=== PATIENT | male | born 1995 | race Caucasian/White ===

== ENCOUNTER 2019-09-16 07:31 | Outpatient (CLI) | payer OTHER, SELFPAY ==
--- NOTE | 2019-09-22 20:27 | SLEEP_ITS ---
Home Sleep Test. DATE OF STUDY: 09/16/2019 REASON FOR THE STUDY: Sleep apnea, unspecified. HISTORY: The patient is a 24-year-old male, who snores at night, chokes in his sleep and stops breathing every once in a while. He constantly snores loud enough that others complain about it, constantly awakens at night with heartburn, belching, or coughing. He frequently awakens from sleep feeling short of breath. His father and 2 aunts on his father's side have sleep apnea. 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 He has difficulty waking up in the day. He constantly has trouble sleeping with a cold, occasionally gasps for breath at night, frequently is told by others that he has breathing problems while sleeping. He occasionally sweats excessively at night. He does not notice his heart pounding or beating irregularly at night. He frequently falls asleep during the day, but never involuntarily or while driving. He does not fall asleep with physical effort. He does not fall asleep with strong emotion. He does not lose muscle strength with strong emotion. He occasionally has daytime difficulties due to excessive sleepiness. He does not feel paralyzed on waking or falling asleep. He does not have vivid dreamlike scenes upon awakening or falling asleep. He does not feel afraid of going asleep. He frequently has nightmares, constantly remembers his dreams, constantly has racing thoughts. He does not have sadness, depression or anxiety. He constantly has muscular tension. He frequently notices parts of his body jerking, occasionally kicks at night, constantly has crawly achy feelings in his legs. He frequently has leg pain at night. He denies morning jaw pain and does not grind his teeth during sleep. He constantly is bothered by pain during the day, but never is awakened by pain at night. He constantly wakes up feeling stiff in the morning with sore achy muscles and pain in his neck and spine joints. He has fatigue, memory problems, nightmares, concentration difficulties, and frequently takes antacids. Bedtime is 01:00 a.m. taking 5 to 10 minutes to fall asleep, typically waking 3-4 times at night, staying awake for 2-3 minutes, so he can go to the bathroom. He wakes in the morning at 08:30 a.m. He lives at home with his and 3 small children. He does not take naps. A short nap is not refreshing. He is drowsy in the morning for 2 hours or longer. MEDICAL COMORBIDITIES: Hypertension, acid reflux, seasonal allergies, sensitive to pollen and mold. MEDICATIONS: Lisinopril 10 mg a day. HABITS: Cigarettes: Previously smoked tobacco. Caffeine, 1 serving per day. No alcohol. No recreational drugs. DESCRIPTION OF THE STUDY: On the Gardner Sleepiness Scale, score is 12, elevated. This was conducted as an unattended type 3 portable home sleep test using 4 channel monitoring including respiratory effort channel, snoring channel, oxygen saturation channel, and heart rate channel. This study was scored using [facility] guidelines. Duration of the study was 5 hours 47 minutes. The apnea-hypopnea index is elevated at 24. Oxygen desaturation index is elevated at 20. Lowest desaturation is 76%. The mean saturation is 93%. The patient had 66 apneas and the majority of these 82% or 54 apneas were obstructive, 12% or 8 apneas were central and 4 apneas or 6% were mixed. He had 73 hypopneas, 960 snoring events and 145 desaturations spending 10 minutes or 2% of the study below 88% saturation. Heart rate ranged from 52, which is normal up to 116, which is elevated. IMPRESSION: This home sleep test shows evidence of at least moderate obstructive sleep apnea syndrome G47.33 with a small number of central and mixed apneas, 18% of
== END 2019-09-16 07:32 | disposition home or self-care (01) ==
LOC: ANHCSM 07:36
PROVIDERS: PCP Family Medicine Adolescent Medicine; Visit Provider Family Medicine
DX: G47.30 Sleep apnea, unspecified (principal)
CPT/HCPCS: 95806

== ENCOUNTER 2019-12-30 13:43 | Emergency (ER) | payer OTHER, SELFPAY ==
--- NOTE | 2019-12-30 13:54 | ED.GENADULT ---
HPI - General Adult General Chief complaint: Upper Respiratory Infection Stated complaint: upper respiratory infection Time Seen by Provider: 12/30/19 13:56 Source: patient Mode of arrival: ambulatory Limitations: no limitations History of Present Illness HPI narrative: 24-year-old male patient presents to the [facility] with complaints of upper respiratory infection x2 days. Patient states that he was sent home from work due to the fact that he was running a fever as high as 100.9. Patient states he has had a little bit of a cough, body aches, chills, low-grade fever, runny nose. Denies any chest pain or shortness of breath. Denies any abdominal pain, nausea, vomiting or diarrhea. Patient states he is a smoker. Patient states that his body aches, chills and fever do improve when taking Tylenol. 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 Related Data Home Medications Medication Instructions Recorded Confirmed No Home Medications 12/30/19 12/30/19 Allergies Allergy/AdvReac Type Severity Reaction Status Date / Time clavulanic acid Allergy Intermediate Vomiting Verified 03/05/19 17:22 azithromycin Allergy Unknown Verified 03/05/19 17:22 Review of Systems Review of Systems: Narrative: CONSTITUTIONAL: Positive low-grade fever, chills, denies sweats. EYES: Denies visual changes, redness, or discharge. ENT: Positive rhinorrhea, congestion, sore throat, denies otalgia. CARDIOVASCULAR: Denies chest pain, palpitations, or edema. RESPIRATORY: Positive cough, denies dyspnea. GASTROINTESTINAL: Denies abdominal pain, nausea, vomiting, or diarrhea. GENITOURINARY: Denies dysuria or hematuria. SKIN: Denies rash or itching. MUSCULOSKELETAL: Denies back pain, joint pain, or myalgia. NEUROLOGIC: Denies headache, numbness, or weakness. PSYCHIATRIC: Denies anxiety or depression. PMFSH Comments At the time of my signature I agree with nursing past medical history, surgical, social, and family history. There is no relevant family history pertinent to the presenting complaint. Exam Narrative: Exam Narrative: GENERAL: Well-appearing, well-nourished, and in no acute distress. HEAD: Normocephalic, atraumatic. No tenderness noted to frontal maxillary sinuses on palpation EYES: PERRLA and EOMI. ENT: Nares with erythema and edema noted bilaterally, no rhinorrhea or epistaxis. Mucous membranes moist. Posterior pharynx with some erythema but there is no tonsil enlargement, exudates or lesions present. Bilateral TMs are clear no erythema or foreign bodies in the canal. NECK: Supple. No lymphadenopathy CHEST: Clear to auscultation. No respiratory distress. Patient does have a nonproductive dry cough noted during exam. HEART: Regular rate and rhythm. No murmur heard. Normal peripheral pulses. ABDOMEN: Soft, nontender, nondistended, normal active bowel sounds. EXTREMITIES: Normal range of motion. No edema. SKIN: Warm, dry, no rash. NEURO: No focal deficits. Alert and oriented x3. Course Vital Signs Vital signs: Vital Signs Temperature 37.3 C 12/30/19 13:58 Pulse Rate 71 12/30/19 13:58 Respiratory Rate 16 12/30/19 13:58 Blood Pressure 150/81 H 12/30/19 13:58 Pulse Oximetry 100 12/30/19 13:58 Temperature 37.3 C 12/30/19 13:58 Pulse Rate 71 12/30/19 13:58 Respiratory Rate 16 12/30/19 13:58 Blood Pressure 150/81 H 12/30/19 13:58 Pulse Oximetry 100 12/30/19 13:58 Vital signs reviewed. The patient has been informed that they may have pre-hypertension or Hypertension based on a BP reading in the department. I recommend that the patient call the primary care provider listed on their discharge instructions or a physician of their choice this week to arrange follow up for further evaluation of possible pre-hypertension or Hypertension Medical Decision Making Differential Diagnosis Differential Diagnosis: Differential d
[2019-12-30 13:58] VITALS: BP 150/81; PULSE 71; RESP 16; TEMP 37.3; O2SAT 100
--- NOTE | 2020-01-02 09:56 | PC.NURSE ---
called and requested covid result. 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
== END 2019-12-30 14:23 | disposition home or self-care (01) ==
PROVIDERS: Emergency Provider Nurse Practitioner Family
DX: J06.9 Acute upper respiratory infection, unspecified (principal); Z20.828 Contact with and (suspected) exposure to other viral communicable diseases; R03.0 Elevated blood-pressure reading, without diagnosis of hypertension
CPT/HCPCS: 87081; 87635; 87880; 99213; C9803; G0463; U0003

== ENCOUNTER → 2019-12-30 14:57 | Outpatient (NON) | payer OTHER, SELFPAY ==
[2020-01-01 12:47] LABS: SARS-CoV-2 RNA PCR Negative
== END ==
PROVIDERS: Visit Provider Nurse Practitioner Family
DX: J06.9 Acute upper respiratory infection, unspecified (principal); Z20.828 Contact with and (suspected) exposure to other viral communicable diseases
CPT/HCPCS: 87635; C9803; U0003

== ENCOUNTER 2020-02-29 08:39 | Emergency (ER) | payer BC, MEDICAID, SELFPAY ==
--- NOTE | ~2020-02-29 | XR_ITS ---
EXAMINATION: XR chest 2V DATE: 02/29/2020 09:14 INDICATION: Cough and shortness of breath TECHNIQUE: PA and lateral views of the chest are obtained. COMPARISON: 05/03/2019 FINDINGS: The lungs are free of acute opacities. There is no pleural effusion or pneumothorax. The ca rdiomediastinal silhouette is normal. The visualized bones and soft tissues are unremarkable. IMPRESSION: 1. No acute cardiopulmonary abnormality. Reviewed, dictated and finalized at location [facility].
[2020-02-29 08:55] VITALS: BP 129/97; PULSE 95; RESP 20; TEMP 36.7; O2SAT 99
--- NOTE | 2020-02-29 09:08 | ED.URI ---
HPI - URI/Sore Throat General Chief Complaint: Upper Respiratory Infection Stated Complaint: Cough,Sore Throat Time Seen by Provider: 02/29/20 08:59 Source: patient and RN notes reviewed Mode of arrival: ambulatory Limitations: no limitations History of Present Illness HPI Narrative: Patient presents today with a 3-day history of productive cough, body aches, sneezing and nasal congestion, shortness of breath, chills and sweats. Reports a sore throat that started today. Reports a 6-day history of diarrhea. He has been taking ibuprofen and an old prescription of benzonatate for his symptoms. Patient works on a [employer] and cannot come back to work until he has been evaluated. Denies history of asthma or COPD. No known COVID-19 exposure. MD elicited complaint: cough and nasal congestion Related Data Allergies Allergy/AdvReac Type Severity Reaction Status Date / Time clavulanic acid Allergy Intermediate Vomiting Verified 02/29/20 09:01 azithromycin Allergy Unknown Unknown Verified 02/29/20 09:01 Review of Systems Review of Systems: Narrative: CONSTITUTIONAL: Denies fever. + Body aches, chills, sweats EYES: Denies visual changes, redness, or discharge. ENT: Denies otalgia.+ Rhinorrhea, congestion, sore throat, sneezing CARDIOVASCULAR: Denies chest pain, palpitations, or edema. RESPIRATORY:+ Cough, shortness of breath GASTROINTESTINAL: Denies abdominal pain, nausea, vomiting. + Diarrhea GENITOURINARY: Denies dysuria or hematuria. SKIN: Denies rash, itching, or wounds. MUSCULOSKELETAL: Denies back pain, joint pain, or myalgia. NEUROLOGIC: Denies headache, numbness, tingling, or weakness. PSYCH: Denies depression or anxiety. PMFSH Comments At time of signature, I have reviewed and agree with nursing past medical, surgical, social and family history unless otherwise noted. Please see nursing chart for further information. There is no relevant family history pertinent to the presenting complaint Exam Narrative: Exam Narrative: GENERAL: Mildly ill appearing, well-nourished, and in no acute distress. HEAD: Normocephalic, atraumatic. EYES: EOMI. No redness or drainage. Conjunctivae normal. ENT: Mucous membranes pink and moist. Nares congested with rhinorrhea. TMs normal bilaterally. Throat mildly erythematous without edema or exudate. Uvula midline. NECK: Normal AROM. Supple. No lymphadenopathy. CHEST: No respiratory distress. Slight inspiratory and expiratory wheezes throughout, otherwise clear HEART: Regular rate and rhythm. No murmur appreciated. Normal peripheral pulses. MUSCULOSKELETAL: No bony tenderness. EXTREMITIES: Normal range of motion. No edema. SKIN: Warm, dry, no rash. Capillary refill normal. Normal skin turgor. NEURO: No focal deficits. Alert and oriented x3. Gait steady. PSYCH: Normal affect. No signs of depression or anxiety. Course Course Emergency Course: Order for COVID testing has been faxed over to [facility]. Anticipatory guidance given. We will treat patient with steroids and an albuterol inhaler. Due to recent exposure and symptoms, patient may have a possible COVID-19 infection. Signs and symptoms discussed with patient. Patient educated to self-isolate in a room in his/her home away from others they live with. Use mask if available. Patient was advised not to leave house for any reason ? Self-treatment discussed including Tylenol for fever, pain, or myalgia, and cough cold medications for symptoms. Patient to check temperature daily and monitor for symptoms of respiratory distress. Patient should check in daily with primary care office/system via phone/virtual platform ? Nature of the disease to cause severe respiratory distress discussed with the patient. If emergent care is needed, instructed to notify EMS or primary care office/system that he/she may have COVID-19 to allow for proper preparation of PPE and isolation measures Vital Signs Vital signs: Vital Signs
== END 2020-02-29 09:34 | disposition home or self-care (01) ==
PROVIDERS: Emergency Provider Nurse Practitioner
DX: J06.9 Acute upper respiratory infection, unspecified (principal); J02.9 Acute pharyngitis, unspecified; Z20.828 Contact with and (suspected) exposure to other viral communicable diseases
CPT/HCPCS: 71046; 99213; G0463

== ENCOUNTER 2020-05-02 21:00 | Emergency (ER) | payer BC, SELFPAY ==
--- NOTE | ~2020-05-02 | CT_ITS ---
EXAMINATION: CT abdomen pelvis w con DATE: 05/02/2020 21:59 INDICATION: Left-sided abdominal pain TECHNIQUE: Computed tomography (CT) of the abdomen and pelvis was performed with 100 cc Omnipaque 350 intravenous contrast. Automated exposure control and iterative reconstruction technique were employe d. Exam dose: 758.36 mGy-cm total exam DLP. COMPARISON: 03/16/2018 CT abdomen pelvis FINDINGS: The lung bases are clear of infiltrate or consolidation. Normal heart size. No pericardial or pleural effusion. Small sliding hiatal hernia. The gallbladder is contracted. No bile duct dilatation. No hepatic, splenic, pancreatic, and adrenal or renal space-occupying mass lesion. No pancreatic duct dilatation. Normal caliber of the abdominal aorta. No intraperitoneal or retroperitoneal or pelvic mass lesion or adenopathy or ascites. Bilateral fat-containing inguinal hernias. The urinary bladder is relatively evacuated. The prostate gland and seminal vesicles are unremarkable . Normal appendix. No bowel obstruction, bowel wall thickening, pneumatosis or intraperitoneal free air . Included skeletal structures are unremarkable. IMPRESSION: Small sliding hiatal hernia Bilateral fat-containing inguinal hernias Reviewed, dictated and finalized at [facility]. Reviewed, dictated and finalized at location A.
[2020-05-02 21:07] VITALS: BP 172/89; PULSE 93; RESP 20; TEMP 37.1; O2SAT 100
--- NOTE | 2020-05-02 21:17 | ED.ABDPAIN ---
HPI - Abdominal Pain General Chief Complaint: Abdominal Pain Stated Complaint: Abd pain Time Seen by Provider: 05/02/20 21:13 Source: RN notes reviewed History of Present Illness HPI narrative: Patient presents to emergency department from home for right side abdominal pain. Patient states pain initially began approximately 1 month ago when he had fallen onto his right side at work onto some metal. He states that since then he has had pain in the right side of his abdomen and at times would feel like a knot is there. States the pain has gotten worse was eating is gotten worse over the past 2 days. States associated nausea and vomiting yesterday. Denies any fevers or chills diarrhea or any other symptoms states he is having regular bowel movements Related Data Home Medications Medication Instructions Recorded Confirmed hydrocodone-acetaminophen 1 tablet PO PRN 05/02/20 Allergies Allergy/AdvReac Type Severity Reaction Status Date / Time clavulanic acid Allergy Intermediate Vomiting Verified 05/02/20 21:11 azithromycin Allergy Unknown Unknown Verified 05/02/20 21:11 Review of Systems Review of Systems: Narrative: Gen.: Denies fevers or chills ENT: Denies congestion Respiratory: Denies shortness of breath or cough CV: Denies chest pain or palpitations GI: See HPI denies burning, urgency, frequency or hematuria Musculoskeletal: Denies back pain or muscle pain Neuro: Denies numbness, tingling, weakness or focal weakness Skin: Denies rash Except as documented, all other systems reviewed and negative [facility] Past Medical History Medical History (Updated 05/02/20 @ 22:25 by Corey Damon DO) Patient denies significant medical history Social History Social History (Updated 05/02/20 @ 21:18 by Corey Damon DO) Smoking status: Current every day smoker Exam Narrative: Exam Narrative: APPEARANCE: No acute distress, nontoxic, resting in bed HEENT: Normocephalic, atraumatic, OMM RESPIRATORY: No respiratory distress, clear to auscultation bilaterally with no rhonchi wheezing or rales CARDIOVASCULAR: RRR s murmur ABDOMINAL: Soft, nondistended, tender palpation right upper quadrant right lower quadrant, no tenderness left upper quadrant left lower quadrant no rebound or guarding MUSCULOSKELETAl: Moves all extremities. No clubbing, cyanosis or edema. NEURO: Awake and alert. Following commands, speech normal, no focal deficits SKIN:: Warm, dry. Normal Color PSYCHIATRIC: Normal affect/mood Course Course Emergency Course: Patient states that they are feeling much better at this time. States abdominal pain has improved repeat abdominal exam shows the patient's abdomen to be soft with no surgical abdomen present discussed with patient results of workup and diagnosis. Discussed need for follow-up with primary care physician, reasons to return to the emergency department in proper use of medication. Patient understands and agrees to current treatment plan Vital Signs Vital signs: Vital Signs Temperature 98.7 F 05/02/20 21:07 Pulse Rate 93 05/02/20 21:07 Respiratory Rate 20 05/02/20 21:07 Blood Pressure 172/89 H 05/02/20 21:07 Pulse Oximetry 100 05/02/20 21:07 Temperature 98.7 F 05/02/20 21:07 Pulse Rate 93 05/02/20 21:07 Respiratory Rate 20 05/02/20 21:07 Blood Pressure 172/89 H 05/02/20 21:07 Pulse Oximetry 100 05/02/20 21:07 MDM - Abdominal Pain Lab Data Result diagrams: 05/02/20 21:30 05/02/20 21:53 Labs: Lab Results 05/02/20 05/02/20 05/02/20 Range/Units 21:30 21:50 21:50 WBC 11.3 H (4.5-10.0) K/mm3 RBC 5.12 (4.6-6.20) M/mm3 Hgb 16.1 (14.0-18.0) g/dL Hct 46.0 (42.0-52.0) % MCV 89.8 (80-100) fl MCH 31.4 (26-34) pg MCHC 35.0 (32-36) g/dl RDW 12.6 (11.5-14.5) % Plt Count 268 (150-375) k/mm3 MPV 9.9 (7.4-10.4) fl Immature Gran % (Auto) 2.4 H (0-0.5) % Neut % (Auto) 54.2 (45.
[2020-05-02] MEDS: SODIUM CHLORIDE 0.9% IV 1,000 ML 999 ML IV CONT (21:34)
[2020-05-02 21:36] LABS: Basophils Absolute Auto 0.1 K/mm3 (0.0-0.1); Basophils Percent Auto 0.5 % (0.2-1.2); Eosinophils Absolute Auto 0.6 K/mm3 (0-0.3); Hemoglobin 16.1 g/dL (14.0-18.0); Immature Granulocyte Absolute 0.27 K/mm3 (0.00-0.031); Immature Granulocyte Percent A 2.4 % (0-0.5); Lymphocytes Absolute Auto 3.41 K/mm3 (0.9-3.2); Lymphocytes Percent Auto 30.2 % (18.3-44.2); Mean Corpuscular Hemoglobin 31.4 pg (26-34); Mean Corpuscular Volume 89.8 fl (80-100); Mean Platelet Volume 9.9 fl (7.4-10.4); Monocytes Absolute Auto 0.9 K/mm3 (0.1-0.6); Monocytes Percent Auto 7.7 % (2.6-8.5); Neutrophils Absolute Auto 6.1 K/mm3 (1.3-6.7); Neutrophils Percent Auto 54.2 % (45.5-73.1); Platelet Count Result 268 k/mm3 (150-375); Red Blood Count 5.12 M/mm3 (4.6-6.20); Red Cell Distribution Width 12.6 % (11.5-14.5); White Blood Count 11.3 K/mm3 (4.5-10.0)
[2020-05-02 21:56] LABS: Estimated CRCL calculation 96 ml/min; Estimated Glomerular Filt Rate > 60
[2020-05-02 22:00] LABS: Add Urine Microscopic? YES; Appearance Urine Cloudy (Clear); Bilirubin Urine Negative (Negative); Blood Urine Negative (Negative); Color Urine Yellow (Yellow); Glucose Urine UA Negative (Negative); Ketones Urine Negative (Negative); Leukocyte Esterase Ur Negative LEU/UL (Negative); Mucus Urine Rare /lpf; Nitrate Urine Negative (Negative); Protein Urine Negative (Negative); RBC Urine 0-2 /hpf (0-2); Specific Grav Ur 1.023 (1.001-1.035); WBC Urine 0-3 /hpf
[2020-05-02 22:08] LABS: Alanine Aminotransferase 60 U/L (4-50); Albumin Level 4.6 g/dL (3.5-5.1); Alkaline Phosphatase 61 U/L (38-126); Anion Gap 6 mmol/L (8-16); Aspartate Amino Transferase 38 U/L (17-59); Bilirubin,Total 0.4 mg/dL (0.2-1.3); Blood Urea Nitrogen 17 mg/dL (9-20); Carbon Dioxide 33 mmol/L (22-30); Chloride 101 mmol/L (98-107); Estimated CRCL calculation 106 ml/min; Estimated Glomerular Filt Rate > 60; Glucose 88 mg/dL (75-110); Lipase 82 U/L (23-300); Sodium 140 mmol/L (137-145)
[2020-05-02 22:49] VITALS: BP 155/82; PULSE 96; RESP 18; TEMP 36.8; O2SAT 100
== END 2020-05-02 22:51 | disposition home or self-care (01) ==
PROVIDERS: Emergency Provider Emergency Medicine
DX: R10.9 Unspecified abdominal pain (principal); F17.200 Nicotine dependence, unspecified, uncomplicated
CPT/HCPCS: 36415; 74177; 80053; 81001; 83690; 85025; 96361; 96365; 99284; J0131; J7030; Q9967

== ENCOUNTER 2020-05-21 17:48 | Emergency (ER) | payer BC, SELFPAY ==
--- NOTE | ~2020-05-21 | XR_ITS ---
XR chest 2V DATE: 05/21/2020 18:19 INDICATION: Cough for 1.5 weeks. Smoker. TECHNIQUE: 2 views COMPARISON: 05/21/2020 2 view chest FINDINGS: Normal heart size. No hilar or mediastinal enlargement. No pulmonary infiltrate or consolid ation, pleural effusion or pulmonary vascular congestion or pneumothorax is detected. IMPRESSION: No active cardiopulmonary disease Reviewed, dictated and finalized at location A. 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
--- NOTE | 2020-05-21 18:00 | ED.URI ---
HPI - URI/Sore Throat General Chief Complaint: Upper Respiratory Infection Stated Complaint: Cough/No taste History of Present Illness HPI Narrative: This is a 25 year old that comes in complaining of coughing shortness of breath, fever and COVID-19 like symptoms. Patient states that his aunt and grandparents and cousin have all tested positive within the last week .Patient states that he has a sore throat body aches and he is feeling warn out patient states that he has lost his taste and is wanting to be tested for COVID . Related Data Home Medications Medication Instructions Recorded Confirmed hydrocodone-acetaminophen 1 tablet PO PRN 05/02/20 Allergies Allergy/AdvReac Type Severity Reaction Status Date / Time clavulanic acid Allergy Intermediate Vomiting Verified 05/02/20 21:11 azithromycin Allergy Unknown Unknown Verified 05/02/20 21:11 Review of Systems Review of Systems: Narrative: CONSTITUTIONAL: Reports fever, chills, or sweats. EYES: Denies visual changes, redness, or discharge. ENT: Reports rhinorrhea, congestion, sore throat, or otalgia. CARDIOVASCULAR:Denies chest pain, palpitations, or edema. RESPIRATORY: Reports cough or dyspnea. GASTROINTESTINAL: Denies abdominal pain, nausea, vomiting, or diarrhea. GENITOURINARY: Denies dysuria or hematuria. SKIN:[Denies rash or itching. MUSCULOSKELETAL:Denies back pain, joint pain, or myalgia. NEUROLOGIC: Reports headache, numbness, or weakness. PSYCHIATRIC:Denies anxiety or depression PMFSH Past Medical History Medical History (Updated 05/21/20 @ 19:22 by Lissette Garcia NP) Patient denies significant medical history Social History Social History (Updated 05/02/20 @ 21:18 by Corey Damon DO) Smoking status: Current every day smoker Exam Narrative: Exam Narrative: GENERAL:Well-appearing, well-nourished, and in no acute distress. HEAD:Normocephalic, atraumatic. EYES: PERRLA and EOMI. ENT: Nares clear, no rhinorrhea or epistaxis. Mucous membranes moist. Pharyngeal erythema NECK: Supple. CHEST: Wheezing and coarse to auscultation. Coughing respiratory distress. HEART: Regular rate and rhythm. No murmur heard. Normal peripheral pulses. ABDOMEN: Soft, nontender, nondistended, normal active bowel sounds. EXTREMITIES: Normal range of motion. No edema. SKIN: Warm, dry, no rash. NEURO: No focal deficits. Alert and oriented x3. Course Vital Signs Vital signs: Vital Signs Temperature 99.3 F 05/21/20 18:01 Pulse Rate 88 05/21/20 18:01 Respiratory Rate 18 05/21/20 18:01 Blood Pressure 146/80 H 05/21/20 18:01 Pulse Oximetry 99 05/21/20 18:01 Temperature 99.3 F 05/21/20 18:01 Pulse Rate 88 05/21/20 18:01 Respiratory Rate 18 05/21/20 18:01 Blood Pressure 146/80 H 05/21/20 18:01 Pulse Oximetry 99 05/21/20 18:01 Procedures Other Procedure Procedure 1: Other Procedure: Chest XRAY FINDINGS: Normal heart size. No hilar or mediastinal enlargement. No pulmonary infiltrate or consolidation, pleural effusion or pulmonary vascular congestion or pneumothorax is detected. IMPRESSION: No active cardiopulmonary disease Reviewed, dictated and finalized at location A. NO PORTER MDM - URI/Sore Throat Differential Diagnosis Differential diagnosis: Likely upper respiratory infection and viral infection Lab Data Labs: Influenza A Screen Negative Reference Range: Negative Influenza B Screen Negative Reference Range: Negative Strep Screen Presumptive Negative *(Reference Range: Negative)* Discharge Plan Discharge Clinical Impression: Suspected COVID-19 virus infection Patient Disposition: Home, Self-Care Condition:
[2020-05-21 18:01] VITALS: BP 146/80; PULSE 88; RESP 18; TEMP 37.4; O2SAT 99
== END 2020-05-21 19:20 | disposition home or self-care (01) ==
PROVIDERS: Emergency Provider Nurse Practitioner Family
DX: Z20.828 Contact with and (suspected) exposure to other viral communicable diseases (principal); R05 Cough; F17.200 Nicotine dependence, unspecified, uncomplicated
CPT/HCPCS: 71046; 87081; 87804; 87880; 99213; G0463

== ENCOUNTER 2020-08-05 10:06 | Outpatient (CLI) | payer OTHER, BC, SELFPAY ==
--- NOTE | 2020-08-05 11:30 | NEURO_ITS ---
Impression: # Complains of numbness of right fingers. History of trauma of fingers and surgery. # No evidence of Carpal Tunnel Syndrome or ulnar neuropathy. # Normal needle/EMG exam # Clinical correlation recommended; symptomatology could be related to local trauma. Nerve Conduction Studies Anti Sensory Summary Table Stim Site NR Peak (ms) P-T Amp (?V) Site1 Site2 Delta-P (ms) Dist (cm) Tu (m/s) Right Median Anti Sensory (2-3nd Digit) Wrist 3.0 66.3 Wrist 2-3nd Digit 3.0 14.0 47 Wrist 3.0 31.8 Wrist 2-3nd Digit 3.0 14.0 47 Right Radial Anti Sensory (Base 1st Digit) Wrist 2.2 36.3 Wrist Base 1st Digit 2.2 0.0 Right Ulnar Anti Sensory (5th Digit) Wrist 2.4 49.2 Wrist 5th Digit 2.4 14.0 58 Motor Summary Table Stim Site NR Onset (ms) O-P Amp (mV) Site1 Site2 Delta-0 (ms) Dist (cm) Tu (m/s) Right Median Motor (Abd Poll Brev) Wrist 3.2 1.5 Elbow Wrist 5.2 30.0 58 Elbow 8.4 2.8 Right Ulnar Motor (Abd Dig Minimi) Wrist 2.4 8.3 A Elbow Wrist 4.9 31.0 63 A Elbow 7.3 7.2 F Wave Studies NR F-Lat (ms) L-R F-Lat (ms) Right Median (Mrkrs) (Abd Poll Brev) 28.44 Right Ulnar (Mrkrs) (Abd Dig Min) 27.50 EMG Side Muscle Nerve Root Ins Act Fibs Amp Dur Recrt Comment Right 1stDorInt Ulnar C8-T1 Nml Nml Nml Nml Nml Right Ext Indicis Radial (Post Int) C7-8 Nml Nml Nml Nml Nml Right Ext Digitorum Radial (Post Int) C7-8 Nml Nml Nml Nml Nml Right BrachioRad Radial C5-6 Nml Nml Nml Nml Nml Right PronatorTeres Median C6-7 Nml Nml Nml Nml Nml Right Abd Poll Brev Median C8-T1 Nml Nml Nml Nml Nml Right ABD Dig Min Ulnar C8-T1 Nml Nml Nml Nml Nml MTDD
== END 2020-08-05 10:07 | disposition home or self-care (01) ==
PROVIDERS: Visit Provider Orthopaedic Surgery Hand Surgery
DX: M79.641 Pain in right hand (principal)
CPT/HCPCS: 95886; 95909

== ENCOUNTER 2021-04-22 21:09 | Emergency (ER) | payer BC, MEDICAID, SELFPAY ==
[2021-04-22 21:17] VITALS: BP 143/92; PULSE 81; RESP 20; TEMP 36.2; O2SAT 99
--- NOTE | 2021-04-22 21:53 | ED.SKABFB ---
HPI - Skin/Abscess/Foreign Bdy General Chief complaint: Skin/Abscess/Foreign Body Stated complaint: inner thigh abscess Time Seen by Provider: 04/22/21 21:53 Source: patient Mode of arrival: ambulatory Limitations: no limitations History of Present Illness HPI narrative: This is a 26 year old male that presents to the ER for a cyst present on the right inner thigh over the last couple of weeks. Reports recently the area has become more painful and red. Denies fever or drainage. Related Data Home Medications Medication Instructions Recorded Confirmed hydrocodone-acetaminophen 1 tablet PO PRN 05/02/20 Allergies Allergy/AdvReac Type Severity Reaction Status Date / Time clavulanic acid Allergy Intermediate Vomiting Verified 04/22/21 21:22 azithromycin Allergy Unknown Unknown Verified 04/22/21 21:22 Review of Systems Review of Systems: CONSTITUTIONAL: Denies fever SKIN: Reports redness and swelling All systems reviewed & are unremarkable except as noted in HPI and below PMFSH Past Medical History Medical History (Updated 04/22/21 @ 22:11 by Jessy Triana PA-C) Patient denies significant medical history Social History Social History (Updated 05/02/20 @ 21:18 by Corey Damon DO) Smoking status: Current every day smoker Exam Narrative: GENERAL: Well-appearing, well-nourished, and in no acute distress. HEAD: Normocephalic, atraumatic. EYES: EOMI. EXTREMITIES: Normal range of motion. Right inner thigh with 3 cm area of edema with overlying redness. No obvious fluctuance SKIN: Warm, dry, no rash. NEURO: No focal deficits. Alert and oriented x3. PSYCH: Normal mood and affect Course Vital Signs Vital signs: Vital Signs Temperature 97.2 F L 04/22/21 21:17 Pulse Rate 81 04/22/21 21:17 Respiratory Rate 20 04/22/21 21:17 Blood Pressure 143/92 H 04/22/21 21:17 Pulse Oximetry 99 04/22/21 21:17 Temperature 97.2 F L 04/22/21 21:17 Pulse Rate 81 04/22/21 21:17 Respiratory Rate 20 04/22/21 21:17 Blood Pressure 143/92 H 04/22/21 21:17 Pulse Oximetry 99 04/22/21 21:17 Procedures Abscess I/D lower extremity: Date of Incision: 04/22/21 Time of Incision: 22:09 Side (if applicable): right Local Anesthetic: lidocaine 1% and with epi Amount of anesthesia used (mL): 2 Technique: incised with #11 blade Packing used?: none I&D Results: Pus and Blood MDM - Skin/Abscess/Foreign Bdy MDM Narrative Medical decision making narrative: Patient presents to the emergency department for an area possible abscess to the right inner thigh. He is afebrile and nontoxic-appearing. The area was drained with just a small amount of pus. Suspect was mostly cellulitic at this point. Patient will be started on oral antibiotics. He was instructed on wound care. He is to follow-up with his primary care doctor. He was given warnings to return to the ER Critical Care Time Critical Care Time Critical Care Time: No Discharge Plan Discharge Clinical Impression: Cellulitis Qualifiers: Site of cellulitis: extremity Site of cellulitis of extremity: lower extremity Laterality: right Qualified Code(s): L03.115 - Cellulitis of right lower limb Patient Disposition: Home, Self-Care Condition: Stable Instructions: Antibiotic Form, Cellulitis (ED) Additional Instructions: Return if symptoms worsen or concerns: any increase in redness, swelling, pain, or fever over 101 Take antibiotics as directed. Clean wound with mild soapy water. Apply antibiotic ointment and clean dressing at least three times daily. Warm compresses 3 times a day for 30 minutes each Follow up with primary care in the next 2-3 days for re-evaluation Prescriptions: New sulfamethoxazole-trimethoprim [Bactrim DS] 800-160 mg tablet 1 tablet PO Q12H 7 Days Qty: 14 RF: 0 No Action albuterol sulfate [ProAir HFA] 90 mcg/actuation HFA aerosol inhaler 2 puff INHA
[2021-04-22 22:13] VITALS: BP 146/85; PULSE 77; RESP 16; TEMP 36.6; O2SAT 98
== END 2021-04-22 22:43 | disposition home or self-care (01) ==
LOC: ANHED 22:18
PROVIDERS: Emergency Provider Emergency Medicine
DX: L03.115 Cellulitis of right lower limb (principal)
CPT/HCPCS: 10060; 99283; A9270

== ENCOUNTER 2021-06-14 17:41 | Emergency (ER) | payer MEDICAID, SELFPAY ==
--- NOTE | ~2021-06-14 | XR_ITS ---
EXAMINATION: XR chest 1V portable EXAM DATE: 06/14/2021 20:04 INDICATION: Cough. TECHNIQUE: Portable AP frontal chest x-ray was obtained. Comparison is made to prior examination from 05/21/2020. FINDINGS: The lungs are clear. There are no pleural effusions. The cardiomediastinal silhouette is within normal limits. There is no pneumothorax suspected. The bones and soft tissues are unremarkab le. There is no significant interval change. IMPRESSION: No acute cardiopulmonary findings. Reviewed, dictated and finalized at location G. RACT CLERK
[2021-06-14 17:57] VITALS: BP 166/99; PULSE 101; RESP 16; TEMP 36.6; O2SAT 100
[2021-06-14 19:51] VITALS: BP 140/93; PULSE 87; RESP 20; O2SAT 97
--- NOTE | 2021-06-14 19:58 | ED.URI ---
HPI - URI/Sore Throat General Chief Complaint: Upper Respiratory Infection Stated Complaint: cough Time Seen by Provider: 06/14/21 19:52 Source: patient Mode of arrival: ambulatory Limitations: no limitations History of Present Illness HPI Narrative: This is a 26-year-old male that presents to the emergency department for productive cough present over the last couple of days. Reports he is a current daily smoker. He has used his albuterol nebulizer machine with some relief. Denies fever, sore throat, chest pain, or shortness of breath. Related Data Home Medications Medication Instructions Recorded Confirmed hydrocodone-acetaminophen 1 tablet PO PRN 05/02/20 Allergies Allergy/AdvReac Type Severity Reaction Status Date / Time clavulanic acid Allergy Intermediate Vomiting Verified 04/22/21 21:22 azithromycin Allergy Unknown Unknown Verified 04/22/21 21:22 Review of Systems Review of Systems: CONSTITUTIONAL: Denies fever ENT: Denies rhinorrhea, congestion, sore throat CARDIOVASCULAR: Denies chest pain RESPIRATORY: Reports cough. Denies dyspnea. All systems reviewed & are unremarkable except as noted in HPI and below PMFSH Past Medical History Medical History (Updated 06/14/21 @ 20:49 by Jessy Triana PA-C) Patient denies significant medical history Social History Social History (Updated 05/02/20 @ 21:18 by Corey Damon DO) Smoking status: Current every day smoker Exam Narrative: GENERAL: Well-appearing, well-nourished, and in no acute distress. HEAD: Normocephalic, atraumatic. EYES: EOMI. ENT: Nares clear, no rhinorrhea or epistaxis. Mucous membranes moist. Oropharynx without tonsillar hypertrophy exudate or other lesions. Bilateral TMs pearly boyd non-bulging NECK: Supple. No adenopathy or masses. CHEST: Clear to auscultation. No respiratory distress. No wheezes rales or rhonchi HEART: Regular rate and rhythm. No murmur heard. Normal peripheral pulses. EXTREMITIES: Normal range of motion. No edema. SKIN: Warm, dry, no rash. NEURO: No focal deficits. Alert and oriented x3. PSYCH: Normal mood and affect Course Vital Signs Vital signs: Vital Signs Temperature 98 F 06/14/21 17:57 Pulse Rate 101 H 06/14/21 17:57 Respiratory Rate 16 06/14/21 17:57 Blood Pressure 166/99 H 06/14/21 17:57 Pulse Oximetry 100 06/14/21 17:57 Temperature 98 F 06/14/21 17:57 Pulse Rate 87 06/14/21 19:51 Respiratory Rate 20 06/14/21 19:51 Blood Pressure 140/93 H 06/14/21 19:51 Pulse Oximetry 97 06/14/21 19:51 MDM - URI/Sore Throat MDM Narrative Medical decision making narrative: Patient presents to the ER for productive cough present over the last couple of days. He is afebrile and nontoxic-appearing. Lungs are clear on exam. Oxygen saturation has remained normal on room air. Chest x-ray without acute cardiopulmonary abnormality. Patient is a current heavy smoker. Will be started on a steroid pack and instructed on use of Albuterol. He is to follow-up with his primary care doctor. He was given warnings to return to the ER Imaging Data Radiologist's impression: ITS Impressions Chest X-Ray 06/14/21 20:22 IMPRESSION: No acute cardiopulmonary findings. Critical Care Time Critical Care Time Critical Care Time: No Discharge Plan Discharge Clinical Impression: Acute bronchitis Qualifiers: Bronchitis organism: unspecified organism Qualified Code(s): J20.9 - Acute bronchitis, unspecified Patient Disposition: Home, Self-Care Condition: Stable Instructions: Acute Bronchitis (ED) Additional Instructions: Return to the emergency department for worsening symptoms, or any other concerns Remain well-hydrated, get plenty of rest. Take Tylenol or Motrin [id number] for pain as needed. Flonase for nasal congestion. Zyrtec for runny nose. Lozenges or Chloraseptic spray for sore throat. Albuterol every 4-6 hours as needed for shortness of breat
[2021-06-14 21:00] VITALS: BP 143/83; PULSE 76; RESP 16; O2SAT 98
== END 2021-06-14 21:01 | disposition home or self-care (01) ==
PROVIDERS: Emergency Provider Family Medicine
DX: J20.9 Acute bronchitis, unspecified (principal); F17.200 Nicotine dependence, unspecified, uncomplicated
CPT/HCPCS: 71045; 99283

== ENCOUNTER 2021-08-26 14:07 | Emergency (ER) | payer OTHER, SELFPAY ==
--- NOTE | ~2021-08-26 | CT_ITS ---
EXAMINATION: CT abdomen pelvis w con DATE: 08/26/2021 16:04 INDICATION: Nausea, vomiting, weight loss. History of ulcers. TECHNIQUE: Computed tomography (CT) of the abdomen and pelvis was performed with 100 cc Omnipaque 350 intravenous contrast. Automated exposure control and iterative reconstruction technique were employe d. Exam dose: 735.99 mGy-cm total exam DLP. COMPARISON: 05/02/2020 CT abdomen pelvis FINDINGS: The lung bases are clear. Normal heart size. No pericardial or pleural effusion. The liver, gallbladder, bile ducts, spleen, pancreas, pancreatic duct, and adrenal glands and kidneys are unremarkable. Normal caliber of the abdominal aorta. No intraperitoneal or retroperitoneal or pe lvic mass lesion or adenopathy or ascites. Normal appendix. There is minimal colonic diverticulosis; no CT evidence of diverticulitis. Small sliding hiatal hernia. The stomach and duodenum appear unremarkable. There are fluid containing small bowel segments and occ asional small bowel air-fluid levels, which may be due to enteritis or mild adynamic ileus. No abnorm al dilatation of the bowel or bowel wall thickening, pneumatosis or intraperitoneal free air is detec annie. There are bilateral fat-containing inguinal hernias. Included skeletal structures are unremarkable. IMPRESSION: Nondilated fluid containing small bowel segments and occasional small bowel air-fluid le vels, which may be due to enteritis or mild adynamic ileus; no bowel obstruction or free air Small sliding hiatal hernia Minimal colonic diverticulosis; no CT evidence of diverticulitis Normal appendix Reviewed, dictated and finalized at Location [facility]. Reviewed, dictated and finalized at location B. STITCH BINDER IMPRESSION: Nondilated fluid containing small bowel segments and occasional sm all bowel air-fluid levels, which may be due to enteritis or mild adynamic ileu s; no bowel obstruction or free air Small sliding hiatal hernia Minimal colonic diverticulosis; no CT evidence of diverticulitis Normal appendix
[2021-08-26 14:20] VITALS: BP 137/91; PULSE 74; RESP 18; O2SAT 99
[2021-08-26] MEDS: FAMOTIDINE 20 MG/2 ML VIAL IV PUSH (15:07)
[2021-08-26 15:11] LABS: Basophils Percent Auto 0.4 % (0.2-1.2); Eosinophils Absolute Auto 0.3 K/mm3 (0-0.3); Eosinophils Percent Auto 3.2 % (0-4.4); Hematocrit 44.7 % (42.0-52.0); Hemoglobin 15.5 g/dL (14.0-18.0); Immature Granulocyte Absolute 0.05 K/mm3 (0.00-0.031); Immature Granulocyte Percent A 0.6 % (0-0.5); Lymphocytes Absolute Auto 2.51 K/mm3 (0.9-3.2); Lymphocytes Percent Auto 31.2 % (18.3-44.2); Mean Corpuscular HGB Conc 34.7 g/dl (32-36); Mean Corpuscular Hemoglobin 30.2 pg (26-34); Mean Corpuscular Volume 87.1 fl (80-100); Mean Platelet Volume 10.1 fl (7.4-10.4); Monocytes Absolute Auto 0.6 K/mm3 (0.1-0.6); Monocytes Percent Auto 7.3 % (2.6-8.5); Neutrophils Absolute Auto 4.6 K/mm3 (1.3-6.7); Neutrophils Percent Auto 57.3 % (45.5-73.1); Platelet Count Result 265 k/mm3 (150-375); Red Blood Count 5.13 M/mm3 (4.6-6.20); Red Cell Distribution Width 12.1 % (11.5-14.5)
[2021-08-26 15:37] LABS: Alanine Aminotransferase 44 U/L (4-50); Albumin Level 4.9 g/dL (3.5-5.1); Alkaline Phosphatase 56 U/L (38-126); Anion Gap 10 mmol/L (8-16); Aspartate Amino Transferase 36 U/L (17-59); Bilirubin,Total 0.8 mg/dL (0.2-1.3); Blood Urea Nitrogen 18 mg/dL (9-20); Calcium 9.1 mg/dL (8.4-10.2); Carbon Dioxide 25 mmol/L (22-30); Chloride 103 mmol/L (98-107); Estimated CRCL calculation 119 ml/min; Estimated Glomerular Filt Rate > 60; Glucose 91 mg/dL (65-110); Potassium 3.8 mmol/L (3.4-5.0); Sodium 138 mmol/L (137-145)
--- NOTE | 2021-08-26 17:11 | ED.NAVMDI ---
HPI - Nausea/Vomiting/Diarrhea General Chief complaint: Nausea/Vomiting/Diarrhea <Yamile Mott POWERPLANT OPERATOR - Last Filed: 08/26/21 19:04> Stated complaint: vomiting x1, 15lb weight loss <Yamile Mott APRN - Last Filed: 08/26/21 19:04> Time Seen by Provider: 08/26/21 14:27 <Yamile Mott POWERPLANT OPERATOR - Last Filed: 08/26/21 19:04> Source: patient <Yamile Mott APRN - Last Filed: 08/26/21 19:04> History of Present Illness HPI Narrative: 26-year-old male presents today with complaints of intermittent nausea and diarrhea. Patient states when he eats solid food he has vomiting and diarrhea about 30 minutes later. Patient able to tolerate liquids without issue. Patient denies cough, runny nose, fever, chills, body aches, or sick contacts. <Yamile Mott POWERPLANT OPERATOR - Last Filed: 08/26/21 19:04> MD elicited complaint: nausea, vomiting and diarrhea <Yamile Mott POWERPLANT OPERATOR - Last Filed: 08/26/21 19:04> Related Data Home medications: Home Medications Medication Instructions Recorded Confirmed hydrocodone-acetaminophen 1 tablet PO PRN 05/02/20 <Yamile Mott POWERPLANT OPERATOR - Last Filed: 08/26/21 19:04> Allergies/Adverse reactions: Allergies Allergy/AdvReac Type Severity Reaction Status Date / Time clavulanic acid Allergy Intermediate Vomiting Verified 04/22/21 21:22 azithromycin Allergy Unknown Unknown Verified 04/22/21 21:22 <Yamile Mott POWERPLANT OPERATOR - Last Filed: 08/26/21 19:04> Review of Systems Constitutional: Constitutional: Reports as per HPI <Yamile Mott POWERPLANT OPERATOR - Last Filed: 08/26/21 19:04> Eyes: Eyes: Reports no additional eye complaints <Yamile Mott APRN - Last Filed: 08/26/21 19:04> ENT: Reports system reviewed and no additional complaints, except as documented <Yamile Mott POWERPLANT OPERATOR - Last Filed: 08/26/21 19:04> Cardiovascular: Cardiovascular: Reports no additional cardiovascular complaints <Yamile Mott POWERPLANT OPERATOR - Last Filed: 08/26/21 19:04> Respiratory: Respiratory: Reports no additional respiratory complaints <Yamile Mott APRN - Last Filed: 08/26/21 19:04> Gastrointestinal: Gastrointestinal: Reports as per HPI, Reports diarrhea, Reports nausea and Reports vomiting <Yamile Mott POWERPLANT OPERATOR - Last Filed: 08/26/21 19:04> Genitourinary: Genitourinary: Reports no additional male genitourinary complaints <Yamile Mott POWERPLANT OPERATOR - Last Filed: 08/26/21 19:04> Musculoskeletal: Musculoskeletal: Reports no additional musculoskeletal complaints <Yamile Mott POWERPLANT OPERATOR - Last Filed: 08/26/21 19:04> [facility] Past Medical History Medical History: Medical History Patient denies significant medical history <Yamile Mott APRN - Last Filed: 08/26/21 19:04> Social History Social History: Social History Smoking status: Current every day smoker <Yamile Mott APRN - Last Filed: 08/26/21 19:04> Exam Narrative: GENERAL: Well-appearing, well-nourished, and in no acute distress. HEAD: Normocephalic, atraumatic. EYES: PERRLA and EOMI. ENT: Nares clear, no rhinorrhea or epistaxis. Mucous membranes moist. Oropharynx without tonsillar hypertrophy exudate or other lesions. Bilateral TMs pearly boyd nonbulging NECK: Supple. No adenopathy or masses. No carotid bruits or JVD CHEST: Clear to auscultation. No respiratory distress. No wheezes rales or rhonchi HEART: Regular rate and rhythm. No murmur heard. Normal peripheral pulses. ABDOMEN: Soft, nontender, nondistended, normal active bowel sounds. EXTREMITIES: Normal range of motion. No edema. SKIN: Warm, dry, no rash. NEURO: No focal deficits. Alert and oriented x3. PSYCH: Normal mood and affect. <Yamile Mott APRN - Last Filed: 08/26/21 19:04> Course Course Emergency Course: Patient without any n/v/d during ED stay. <Yamile Mott, POWERPLANT OPERATOR - Last Filed: 08/26/21 19:04> G[employer]OLINE DRAGLINE OPERATOR/PA Physician Supervision
[2021-08-26 17:29] VITALS: BP 136/89; PULSE 68; RESP 16; O2SAT 100
== END 2021-08-26 17:35 | disposition home or self-care (01) ==
PROVIDERS: Emergency Provider Nurse Practitioner Family
DX: K52.9 Noninfective gastroenteritis and colitis, unspecified (principal); F17.200 Nicotine dependence, unspecified, uncomplicated; K57.90 Diverticulosis of intestine, part unspecified, without perforation or abscess without bleeding; K44.9 Diaphragmatic hernia without obstruction or gangrene
CPT/HCPCS: 36415; 74177; 80053; 85025; 96374; 99284; Q9967

== ENCOUNTER 2021-09-13 10:53 | Emergency (ER) | payer OTHER, SELFPAY ==
[2021-09-13 10:57] VITALS: BP 147/90; PULSE 115; RESP 18; TEMP 36.4; O2SAT 98
--- NOTE | 2021-09-13 11:17 | PC.NURSE ---
REPORTS IN ED A COUPLE WEEKS AGO FOR ABD PAIN AND TOLD HE HAS ULCERS. HAS APPOINTMENT WITH GI IN THE AM. REPORTS SOUP THIS AM AND IMMEDIATELY HAD ABD PAIN AND N/V AND REPORTS HE FELT DIZZY AND SHAKEY. REPORT ANASTASIA ON EPIGASTRIC REGION. DENIES FEVER, OR BODYACHES. PT IS A/O X 4, NO DISTRESS, SKIN PWD AND MUCOUS MEMBRANES ARE MOIST.
[2021-09-13 11:54] LABS: Basophils Percent Auto 0.3 % (0.2-1.2); Eosinophils Absolute Auto 0.3 K/mm3 (0-0.3); Eosinophils Percent Auto 2.2 % (0-4.4); Hematocrit 49.2 % (42.0-52.0); Hemoglobin 16.5 g/dL (14.0-18.0); Immature Granulocyte Absolute 0.06 K/mm3 (0.00-0.031); Immature Granulocyte Percent A 0.5 % (0-0.5); Lymphocytes Absolute Auto 0.83 K/mm3 (0.9-3.2); Lymphocytes Percent Auto 6.3 % (18.3-44.2); Mean Corpuscular HGB Conc 33.5 g/dl (32-36); Mean Corpuscular Hemoglobin 30.3 pg (26-34); Mean Corpuscular Volume 90.4 fl (80-100); Mean Platelet Volume 10.9 fl (7.4-10.4); Monocytes Absolute Auto 0.7 K/mm3 (0.1-0.6); Monocytes Percent Auto 5.2 % (2.6-8.5); Neutrophils Absolute Auto 11.3 K/mm3 (1.3-6.7); Neutrophils Percent Auto 85.5 % (45.5-73.1); Platelet Count Result 239 k/mm3 (150-375); Red Blood Count 5.44 M/mm3 (4.6-6.20); Red Cell Distribution Width 12.5 % (11.5-14.5); White Blood Count 13.2 K/mm3 (4.5-10.0)
--- NOTE | 2021-09-13 12:22 | PC.NURSE ---
pt. refused blood draw for CMP LIP after the first draw was rejected for hemolysis
[2021-09-13 12:29] LABS: Add Urine Microscopic? NO; Appearance Urine Clear (Clear); Bilirubin Urine Negative (Negative); Blood Urine Negative (Negative); Color Urine Yellow (Yellow); Glucose Urine UA Negative (Negative); Ketones Urine Negative (Negative); Leukocyte Esterase Ur Negative LEU/UL (Negative); Nitrate Urine Negative (Negative); Protein Urine Negative (Negative); Specific Grav Ur 1.023 (1.001-1.035); Urobilinogen Urine Negative mg/dL (<2.0)
--- NOTE | 2021-09-13 12:52 | ED.ABDPAIN ---
HPI - Abdominal Pain General Chief Complaint: Nausea/Vomiting/Diarrhea Stated Complaint: n/v, abd pain, dizzy Time Seen by Provider: 09/13/21 12:29 Source: patient Mode of arrival: ambulatory Limitations: no limitations History of Present Illness HPI narrative: Patient is a 26-year-old male complaining of abdominal pain, 8 out of 10, nonradiating, sharp, started approximately 3 weeks ago. Patient was seen here for same complaints, had a CT scan and labs done, which was unremarkable. Patient states that he has a history of ulcer disease. Patient also states that he has appointment with a trade embalmer regarding the above symptoms. Patient denies any chest pain, shortness of breath, vomiting, diarrhea, fever or chills. Patient denies any GI bleeding. Related Data Home Medications Medication Instructions Recorded Confirmed hydrocodone-acetaminophen 1 tablet PO PRN 05/02/20 Allergies Allergy/AdvReac Type Severity Reaction Status Date / Time clavulanic acid Allergy Intermediate Vomiting Verified 04/22/21 21:22 azithromycin Allergy Unknown Unknown Verified 04/22/21 21:22 Review of Systems Review of Systems: All systems reviewed & are unremarkable except as noted in HPI and below Constitutional: Constitutional: Denies body ache(s), Denies chills, Denies excessive sweating, Denies fatigue, Denies fever(s), Denies headache(s), Denies lethargy, Denies malaise, Denies weakness and Denies weight loss Eyes: Eyes: Denies blurry vision, Denies change in vision and Denies loss of vision ENT: Denies dizziness, Denies ear discharge, Denies headache(s), Denies lip swelling, Denies epistaxis, Denies nasal congestion, Denies neck pain, Denies throat swelling and Denies tongue swelling Cardiovascular: Cardiovascular: Denies chest pain, Denies chest pain at rest, Denies chest pain with activity, Denies diaphoresis, Denies rapid heart rate, Denies edema, Denies irregular heart rhythm, Denies lightheadedness, Denies palpitations, Denies dyspnea and Denies dyspnea on exertion Respiratory: Respiratory: Denies chest congestion, Denies cough, Denies hemoptysis, Denies dyspnea and Denies dyspnea on exertion Gastrointestinal: Gastrointestinal: Denies melena, Denies hematochezia, Denies diarrhea, Denies vomiting and Denies hematemesis Musculoskeletal: Musculoskeletal: Denies abnormal gait, Denies deformity, Denies joint swelling, Denies limited range of motion, Denies neck pain and Denies numbness Neurologic: Denies Abnormal speech present, Denies abnormal gait, Denies confusion, Denies dizziness, Denies headache(s), Denies focal weakness, Denies loss of vision, Denies numbness, Denies Other visual disturbances, Denies Sensory deficit (Neuro) and Denies weakness Psychiatric: Psychiatric: Denies confusion, Denies depression, Denies auditory hallucinations, Denies homicidal ideation and Denies suicidal ideation Endocrine: Endocrine: Denies cold intolerance, Denies excessive sweating, Denies fatigue, Denies heat intolerance and Denies palpitations Hematologic/Lymphatic: Hematologic/Lymphatic: Denies easy bleeding and Denies easy bruising Allergic/Immunologic: Allergic/Immunologic: Denies lip swelling, Denies throat swelling and Denies tongue swelling PMFSH Past Medical History Medical History Patient denies significant medical history Social History Social History Smoking status: Current every day smoker Comments Past medical history: Peptic ulcer disease Family history: Unknown Social history: Positive for smoker, no EtOH or drug use Exam Const: General: cooperative, healthy appearing, comfortable, no acute distress, well developed, alert and awake; No confusion Orientation/consciousness: oriented to person, oriented to place, oriented to time, patient oriented x3 and No confusion Limitations: no limitations HENMT: Head: eboni
--- NOTE | 2021-09-13 13:10 | PC.NURSE ---
pt on cot sleeping, no distress noted skin pwd
[2021-09-13 13:11] VITALS: BP 136/86; PULSE 90; RESP 14; TEMP 36.6; O2SAT 100
--- NOTE | 2021-09-13 13:31 | PC.NURSE ---
patient requested to leave AM. States that he would like to go to a different hospital. Dr. Clark aware. CARMELO paperwork signed
== END 2021-09-14 03:04 | disposition left against medical advice (07) ==
PROVIDERS: Emergency Medicine; Emergency Provider Emergency Medicine
DX: R10.13 Epigastric pain (principal); F17.200 Nicotine dependence, unspecified, uncomplicated; Z87.11 Personal history of peptic ulcer disease
CPT/HCPCS: 36415; 80053; 81003; 83690; 85025; 99283

== ENCOUNTER 2021-12-08 16:59 | Emergency (ER) | payer OTHER, SELFPAY ==
[2021-12-08 17:06] VITALS: BP 134/79; PULSE 70; RESP 18; TEMP 37.3; O2SAT 97
--- NOTE | 2021-12-08 17:15 | ED.URI ---
HPI - URI/Sore Throat General Chief Complaint: Upper Respiratory Infection Stated Complaint: Sore Throat Time Seen by Provider: 12/08/21 17:18 Source: patient and RN notes reviewed Mode of arrival: ambulatory Limitations: no limitations History of Present Illness HPI Narrative: 26-year-old male presents to the [facility] with complaints of a sore throat for 3 days. Has tried [id number] products and included taking a swig of his daughter's pink bubblegum medicine. Denies fevers, chest pain, abdominal pain. No nausea vomiting or diarrhea. Related Data Home Medications Medication Instructions Recorded Confirmed omeprazole 40 mg capsule,delayed 40 mg PO DAILY 12/08/21 12/08/21 release sucralfate 1 gram tablet 1 g PO DAILY 12/08/21 12/08/21 Allergies Allergy/AdvReac Type Severity Reaction Status Date / Time clavulanic acid Allergy Intermediate Vomiting Verified 12/08/21 17:02 azithromycin Allergy Unknown Unknown Verified 12/08/21 17:02 Review of Systems Review of Systems: All systems reviewed & are unremarkable except as noted in HPI and below Constitutional: Constitutional: Reports no additional constitutional complaints, Denies chills and Denies fever(s) Eyes: Eyes: Reports no additional eye complaints ENT: Reports as per HPI and Reports sore throat Cardiovascular: Cardiovascular: Reports no additional cardiovascular complaints Respiratory: Respiratory: Reports no additional respiratory complaints Gastrointestinal: Gastrointestinal: Reports no additional gastrointestinal complaints Musculoskeletal: Musculoskeletal: Reports no additional musculoskeletal complaints Integumentary/Breasts: Skin/Breast: Reports system reviewed and no additional complaints, except as docu Neurologic: Reports system reviewed and no additional complaints, except as documented Psychiatric: Psychiatric: Reports no additional psychiatric complaints Allergic/Immunologic: Allergic/Immunologic: Reports no additional allergic/immunologic complaints PMFSH Past Medical History Medical History Patient denies significant medical history Social History Social History Smoking status: Current every day smoker Comments At the time of my signature, I reviewed and agree with the nursing past medical, surgical, social, and family history. There is no relevant family history pertinent to the patient complaint. Exam Const: General: healthy appearing, no acute distress and alert Nutritional Appearance: well nourished Orientation/consciousness: patient oriented x3 Limitations: no limitations HENMT: Head: normal to inspection Ears: external ears normal General nose exam: Normal external nose present Face and sinus: normal facial exam Mouth: Yes Normal oral and palatal mucosa present and Yes moist mucous membranes Throat: uvula midline, abnormal tonsil bilateral other (Tonsillar stone noted), posterior oropharynx abnormal cobblestoning; no erythema and no exudates and postnasal drainage Eyes: Pupils: Equal, round and reactive pupils present Neck: Neck: normal visual inspection, no lymphadenopathy and no meningeal signs Chest: Chest palpation & inspection: normal inspection of the chest Resp: Effort & Inspection: normal respiratory effort and no use of accessory muscles Auscultation: clear to auscultation bilaterally, no crackles, no rales, no rhonchi and no wheezes Cardio: Rate: regular rate Rhythm: regular rhythm Skin: General skin exam: normal color Rashes: no rashes Wounds: no wounds Neuro: General: patient oriented x3, moves all extremities, no meningeal signs and no focal motor deficits Cranial nerves: Yes Equal, round and reactive pupils present Speech: normal speech Gait exam (Neuro): Normal gait present Extrem: General: normal to inspection Psych: Appearance: grossly normal and well kempt Mental Sta
== END 2021-12-08 17:29 | disposition home or self-care (01) ==
PROVIDERS: Emergency Provider Nurse Practitioner
DX: J02.9 Acute pharyngitis, unspecified (principal); J35.8 Other chronic diseases of tonsils and adenoids; F17.200 Nicotine dependence, unspecified, uncomplicated
CPT/HCPCS: 87081; 87880; 99213; G0463

== ENCOUNTER 2021-12-30 08:47 | Emergency (ER) | payer OTHER, SELFPAY ==
[2021-12-30 08:55] VITALS: BP 144/85; PULSE 78; RESP 18; TEMP 37; O2SAT 99
--- NOTE | 2021-12-30 09:00 | ED.URI ---
HPI - URI/Sore Throat General Chief Complaint: Upper Respiratory Infection Stated Complaint: sore throat Time Seen by Provider: 12/30/21 09:02 Source: patient and RN notes reviewed Mode of arrival: ambulatory Limitations: no limitations History of Present Illness HPI Narrative: 26-year-old male returns to the [facility] with complaints of a sore throat. Was evaluated on December 08 with concern of strep throat. Patient's micro was negative for strep. Patient states that the tonsil stones improved after couple days, developed a cough, that has improved. For the last couple days has woken up with a sore throat and swollen lymph nodes, takes ibuprofen and it goes away. Denies fevers, chest pain, abdominal pain. No nausea or diarrhea. No drooling. No lip or tongue swelling MD elicited complaint: sore throat Treatments prior to arrival: ibuprofen Related Data Home Medications Medication Instructions Recorded Confirmed omeprazole 40 mg capsule,delayed 40 mg PO DAILY 12/08/21 12/30/21 release sucralfate 1 gram tablet 1 g PO DAILY 12/08/21 12/30/21 Allergies Allergy/AdvReac Type Severity Reaction Status Date / Time clavulanic acid Allergy Intermediate Vomiting Verified 12/30/21 08:56 azithromycin Allergy Unknown Unknown Verified 12/30/21 08:56 Review of Systems Review of Systems: All systems reviewed & are unremarkable except as noted in HPI and below Constitutional: Constitutional: Reports no additional constitutional complaints, Denies chills and Denies fever(s) Eyes: Eyes: Reports no additional eye complaints ENT: Reports as per HPI and Reports sore throat Comments: Swollen lymph node Cardiovascular: Cardiovascular: Reports no additional cardiovascular complaints Respiratory: Respiratory: Reports no additional respiratory complaints Gastrointestinal: Gastrointestinal: Reports no additional gastrointestinal complaints Musculoskeletal: Musculoskeletal: Reports no additional musculoskeletal complaints Integumentary/Breasts: Skin/Breast: Reports system reviewed and no additional complaints, except as docu Neurologic: Reports system reviewed and no additional complaints, except as documented Psychiatric: Psychiatric: Reports no additional psychiatric complaints Hematologic/Lymphatic: Hematologic/Lymphatic: Reports as per HPI and Reports lymphadenopathy (Bilateral submandibular) Allergic/Immunologic: Allergic/Immunologic: Reports no additional allergic/immunologic complaints PMFSH Past Medical History Medical History (Updated 12/30/21 @ 09:39 by Siobhan Venegas APRN) Patient denies significant medical history Surgical History Surgical History (Updated 12/30/21 @ 09:39 by Siobhan Venegas APRN) No history of previous surgery Social History Social History Smoking status: Current every day smoker Comments At the time of my signature, I reviewed and agree with the nursing past medical, surgical, social, and family history. There is no relevant family history pertinent to the patient complaint. Exam Const: General: healthy appearing, no acute distress and alert Nutritional Appearance: well nourished Orientation/consciousness: patient oriented x3 Limitations: no limitations HENMT: Head: normal to inspection Ears: external ears normal General nose exam: Normal external nose present, Normal nares present and Normal nasal mucous membranes and turbinates present Face and sinus: normal facial exam and sinuses nontender Mouth: Yes Normal oral and palatal mucosa present Throat: tonsils normal, uvula midline, normal tonsils, posterior oropharynx abnormal cobblestoning, postnasal drainage and no uvular edema Eyes: General: appearance normal, both eyes and all related structures Pupils: Equal, round and reactive pupils present Neck: Neck: normal visual inspection, no lymphadenopathy and no meningeal signs Chest: Chest palpation & inspection: normal
== END 2021-12-30 09:26 | disposition home or self-care (01) ==
PROVIDERS: Emergency Provider Nurse Practitioner
DX: J02.9 Acute pharyngitis, unspecified (principal); R09.82 Postnasal drip; F17.200 Nicotine dependence, unspecified, uncomplicated; J45.909 Unspecified asthma, uncomplicated; K21.9 Gastro-esophageal reflux disease without esophagitis
CPT/HCPCS: 87081; 87880; 99213; G0463

== ENCOUNTER 2022-02-14 10:11 | Outpatient (CLI) | payer OTHER, SELFPAY ==
--- NOTE | ~2022-02-14 | US_ITS ---
US right upper quadrant INDICATION: Epigastric pain PROCEDURE: Realtime right upper abdominal ultrasound. COMPARISON: No prior studies for comparison. FINDINGS: The pancreas is normal without focal mass or pancreatic ductal dilation. Liver echotexture is normal without focal mass or intrahepatic biliary dilatation. There is normal directional flow i n the portal vein. The gallbladder is normal without stones, gallbladder wall thickening or pericholecystic fluid. Comm on bile duct measures 3 mm. No sonographic Thao's sign. IMPRESSION: 1: Normal limited abdominal ultrasound. Reviewed, dictated and finalized at location A.
== END 2022-02-14 10:12 | disposition home or self-care (01) ==
PROVIDERS: Visit Provider Internal Medicine Gastroenterology
DX: R10.13 Epigastric pain (principal)
CPT/HCPCS: 76705

== ENCOUNTER 2022-02-20 22:21 | Emergency (ER) | payer OTHER, SELFPAY ==
[2022-02-20 22:35] VITALS: BP 139/79; PULSE 67; RESP 20; TEMP 36.3; O2SAT 100
[2022-02-20 23:32] VITALS: BP 135/79; PULSE 64; RESP 17; O2SAT 99
--- NOTE | 2022-02-21 00:16 | ED.SKABFB ---
HPI - Skin/Abscess/Foreign Bdy General Chief complaint: Skin/Abscess/Foreign Body Stated complaint: Cyst Time Seen by Provider: 02/20/22 23:32 History of Present Illness HPI narrative: 26-year-old male presents emergency room secondary to cyst to the posterior aspect of his left thigh. He had for approximately 10 years. However lately is becoming more painful. 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 He is extremely tender when he tries to sit on it. Taken some Tylenol and Advil which does get some relief temporarily. He came emergency room tonight wanting me to drain it or remove it. Related Data Home Medications Medication Instructions Recorded Confirmed omeprazole 40 mg capsule,delayed 40 mg PO DAILY 12/08/21 12/30/21 release sucralfate 1 gram tablet 1 g PO DAILY 12/08/21 12/30/21 Allergies Allergy/AdvReac Type Severity Reaction Status Date / Time clavulanic acid Allergy Intermediate Vomiting Verified 02/20/22 23:32 azithromycin Allergy Unknown Unknown Verified 02/20/22 23:32 Review of Systems Review of Systems: CONSTITUTIONAL: Denies fever, chills, or sweats. EYES: Denies visual changes, redness, or discharge. ENT: Denies rhinorrhea, congestion, sore throat, or otalgia. CARDIOVASCULAR: Denies chest pain, palpitations, or edema. RESPIRATORY: Denies cough or dyspnea. GASTROINTESTINAL: Denies abdominal pain, nausea, vomiting, or diarrhea. GENITOURINARY: Denies dysuria or hematuria. SKIN: Denies rash or itching. MUSCULOSKELETAL: Denies back pain, joint pain, or myalgia. Painful circular lesion to the posterior aspect of left thigh NEUROLOGIC: Denies headache, numbness, or weakness. PSYCHIATRIC: Denies anxiety or depression. PMFSH Past Medical History Medical History Patient denies significant medical history Surgical History Surgical History No history of previous surgery Social History Social History Smoking status: Current every day smoker Exam Narrative: APPEARANCE: Well appearing, no pain or distress, well-nourished. Head Normocephalic and atraumatic. EYES: PERRLA/EOMI, conjunctivae clear. NOSE: Normal with no drainage EARS:TMS clear with Edwards, with good light reflex. THROAT: Pharynx clear, no exudate. NECK: Supple. No adenopathy, no masses. RESPIRATORY: Airway patent, respirations nonlabored. Clear to auscultation bilaterally, no rales, rhonchi, wheezing. CARDIOVASCULAR: Regular rate and rhythm without murmurs, rubs, or gallops. ABDOMINAL: Soft, nontender, nondistended, no hepatosplenomegaly Musculoskeletal: Moves all extremities. Strength/ROM intact, No edema, No calf tenderness. Approximately 3 cm diameter firm circular lesion noted to the posterior aspect of the left thigh. It seems to be fairly movable. Is not fluctuant. Not consistent with an abscess. More consistent with a lipoma. NEURO: Alert. Cranial nerves II through XII intact. Normal gait. Good coordination. Nonfocal examination. SKIN:: Warm, dry. Normal Color PSYCHIATRIC: Normal affect/mood, normal interaction Course Vital Signs Vital signs: Vital Signs Temperature 97.3 F L 02/20/22 22:35 Pulse Rate 67 02/20/22 22:35 Respiratory Rate 20 02/20/22 22:35 Blood Pressure 139/79 02/20/22 22:35 Pulse Oximetry 100 02/20/22 22:35 Oxygen Delivery Room Air 02/20/22 22:35 Temperature 97.3 F L 02/20/22 22:35 Pulse Rate 64 02/20/22 23:32 Respiratory Rate 17 02/20/22 23:32 Blood Pressure 135/79 02/20/22 23:32 Pulse Oximetry 99 02/20/22 23:32 Oxygen Delivery Room Air 02/20/22 22:35 MDM - Skin/Abscess/Foreign Bdy MDM Narrative Medical decision making narrative: I explained to the patient this is probably a lipoma and it is causing damage pain just needs to have it removed.
== END 2022-02-21 00:32 | disposition home or self-care (01) ==
PROVIDERS: Emergency Provider Emergency Medicine
DX: D17.24 Benign lipomatous neoplasm of skin and subcutaneous tissue of left leg (principal)
CPT/HCPCS: 99283

== ENCOUNTER 2022-04-25 19:25 | Emergency (ER) | payer OTHER, SELFPAY ==
[2022-04-25 19:37] VITALS: BP 135/82; PULSE 84; RESP 16; TEMP 37.4; O2SAT 98
--- NOTE | 2022-04-25 20:14 | ED.GENADULT ---
HPI - General Adult General Chief complaint: Upper Respiratory Infection Stated complaint: cough Time Seen by Provider: 04/25/22 20:10 Source: patient, RN notes reviewed and old records reviewed Mode of arrival: ambulatory Limitations: no limitations History of Present Illness HPI narrative: 27 year old male presents to [facility] care with complaints 4-5 days of cough with nasal congestion and drainage with 2 days of asthma exacerbation with shortness of breath and wheezing.. Patient reports that he does have history of asthma and has been using his inhaler and also his nebulizer and taking Mucinex DM for his symptoms. Patient reports that he has taken 3 home Covid tests which have been negative. Patient has not had COVID vaccinations or flu shot denies any body aches or any known fevers, chills or sweats.. MD complaint: wheezing, shortness of breath and cough Onset (ago): day(s) (4-5 days) Treatments prior to arrival: other (inhaler, nebulizer and Mucinex DM) Related Data Home Medications Medication Instructions Recorded Confirmed famotidine 40 mg tablet 40 mg PO DAILY 04/25/22 04/25/22 Allergies Allergy/AdvReac Type Severity Reaction Status Date / Time clavulanic acid Allergy Intermediate Vomiting Verified 04/25/22 19:35 azithromycin Allergy Unknown Unknown Verified 04/25/22 19:35 Review of Systems Review of Systems: CONSTITUTIONAL: Denies malaise, chills, sweats, or fever. EYES: Denies visual changes, redness, or discharge. ENT: Reports rhinorrhea, congestion, sinus pain,no otalgia or sore throat. CARDIOVASCULAR: Denies chest pain, palpitations, or edema. RESPIRATORY: Reports cough.? Denies acute dyspnea but wheezing GASTROINTESTINAL: Denies abdominal pain, nausea, vomiting, diarrhea SKIN: Denies rash or itching. MUSCULOSKELETAL: Denies myalgia. NEUROLOGIC: Denies headache. All systems reviewed & are unremarkable except as noted in HPI and below PMFSH Past Medical History Medical History (Updated 04/27/22 @ 22:52 by Alba Pabon NP) Asthma Back pain Esophageal ulcer GERD (gastroesophageal reflux disease) Portal vein thrombosis Surgical History Surgical History No history of previous surgery Social History Social History (Updated 04/27/22 @ 22:44 by Alba Pabon NP) Smoking packs per day: 0.5 Smoking cigarettes per day: 10.0 Smoking status: Current every day smoker Alcohol intake: unknown Substance use: unknown Living arrangements: with family Gender identity (if verbalized by the patient): Male Comments At time of signature, agree with nursing past medical, surgical, social and family history. There is no relevant family history pertinent to the presenting complaint Exam Narrative: GENERAL: Well-appearing, well-nourished, and in no acute distress. HEAD: Normocephalic EYES: PERRLA, conjunctivae clear ENT: Nares clear, turbinates edematous and erythematous, clear discharge. Mucous membranes moist. TM pearly boyd with dull light reflex bilaterally; no tragal tenderness. Oropharynx erythematous without lesions. Tonsils not enlarged and without exudate, no drooling, no hoarseness, no trismus, uvula midline. NECK: Supple. No lymphadenopathy CHEST: Scattered wheezing noted on auscultation, breath sounds equal. Scattered wheezing, no rhonchi, rales, or stridor. No respiratory distress, speaks in full sentences.SAO2 98% on room air cough noted. HEART: Regular rate and rhythm. No murmur heard. SKIN: Warm, dry, no rash. NEURO: Alert and oriented x3. PSYCH: Normal mood and affect Course Course Emergency Course: Patient is aware of diagnosis, understands and agrees to treatment plan.? Anticipatory guidance given.? Patient agrees to follow-up as directed and is aware of reasons to seek care at the emergency department. Portions of this record may have been created with voice recognition software
== END 2022-04-25 20:36 | disposition home or self-care (01) ==
PROVIDERS: Emergency Provider Registered Nurse
DX: J45.901 Unspecified asthma with (acute) exacerbation (principal); K21.9 Gastro-esophageal reflux disease without esophagitis; F17.210 Nicotine dependence, cigarettes, uncomplicated
CPT/HCPCS: 99213; G0463

== ENCOUNTER 2022-12-10 11:40 | Emergency (ER) | payer OTHER, SELFPAY ==
--- NOTE | 2022-12-10 11:57 | ED.SKABFB ---
HPI - Skin/Abscess/Foreign Bdy General Chief complaint: Wound/Laceration Stated complaint: pt has cyst/inflammation on right side of neck Time Seen by Provider: 12/10/22 12:55 Source: patient and RN notes reviewed Mode of arrival: ambulatory Limitations: dementia History of Present Illness HPI narrative: 27-year-old male presents with concern for red bumps on the right side of his neck. He reports he noticed a red area about 4 days ago that was burning at 1st. He reports it is sometimes itchy. He reports he then noticed a no other small pimple like area below the original area. Reports he tried to pop it and only got blood. He denies warmth, swelling, tenderness. He denies rash in any other area. He is concerned for your spider bite. He denies fever, aches, chills, sweats MD complaint: rash Related Data Allergies Allergy/AdvReac Type Severity Reaction Status Date / Time clavulanic acid Allergy Intermediate Vomiting Verified 12/10/22 11:49 azithromycin Allergy Unknown Unknown Verified 12/10/22 11:49 Review of Systems Review of Systems: CONSTITUTIONAL: Denies malaise, chills, sweats, or fever. EYES: Denies redness, or discharge. ENT: Denies rhinorrhea, congestion, swollen lips, swollen tongue CARDIOVASCULAR: Denies chest pain, palpitations, or edema. RESPIRATORY: Denies cough or dyspnea. GASTROINTESTINAL: Denies abdominal pain, nausea, vomiting SKIN: Reports burning area of redness and a pimple on the right side of the neck. Denies purulent drainage, vesicles, bullae, numbness, pain beyond proportion MUSCULOSKELETAL: Denies joint pain or myalgia. NEUROLOGIC: Denies headache. All systems reviewed & are unremarkable except as noted in HPI and below [facility] Past Medical History Medical History (Updated 12/10/22 @ 13:07 by Siobhan Umana NP) Asthma Back pain Esophageal ulcer GERD (gastroesophageal reflux disease) Portal vein thrombosis Surgical History Surgical History No history of previous surgery Social History Social History (Updated 04/27/22 @ 22:44 by Alba Pabon NP) Smoking packs per day: 0.5 Smoking cigarettes per day: 10.0 Smoking status: Current every day smoker Alcohol intake: unknown Substance use: unknown Living arrangements: with family Gender identity (if verbalized by the patient): Male Comments At time of signature, agree with nursing past medical, surgical, social and family history. There is no relevant family history pertinent to the presenting complaint Exam Narrative: GENERAL: Well-appearing, well-nourished, and in no acute distress. HEAD: Normocephalic, atraumatic. EYES: PERRLA, conjunctivae clear ENT: Mucous membranes moist. NECK: Supple. No lymphadenopathy CHEST: Clear to auscultation. No respiratory distress. HEART: Regular rate and rhythm. SKIN: Warm, dry. Male erythema, induration, tenderness, warmth noted. No vesicles, bullae, necrosis, ecchymosis, crepitus noted. Approximately 4 cm x 2 cm slightly raised erythematous area with a small erythematous papule beneath it NEURO: Alert and oriented x3. PSYCH: Normal mood and affect Course Course Emergency Course: I discussed with patient that his symptoms are consistent with possible shingles, patient does not wish to start on antiviral medicine at this time, he is skeptical about the shingles diagnosis. Patient is aware of diagnosis, understands and agrees to treatment plan. Anticipatory guidance given. Patient agrees to follow-up as directed and is aware of reasons to seek care at the emergency department. Portions of this record may have been created with voice recognition software Level of Care: Express Care Visit Vital Signs Vital signs: Reviewed. MDM - Skin/Abscess/Foreign Bdy MDM Narrative Medical decision making narrative: Does not appear at this time to be erythema multiforme, bullous, SJS, TEN; no evidence at this time to sugges
[2022-12-10 12:10] VITALS: BP 137/82; PULSE 85; RESP 16; TEMP 36.9; O2SAT 98
== END 2022-12-10 13:14 | disposition home or self-care (01) ==
PROVIDERS: Emergency Provider Nurse Practitioner
DX: R21 Rash and other nonspecific skin eruption (principal); F17.210 Nicotine dependence, cigarettes, uncomplicated
CPT/HCPCS: 99213; G0463

== ENCOUNTER 2023-03-09 17:04 | Emergency (ER) | payer OTHER, SELFPAY ==
[2023-03-09 17:06] VITALS: BP 145/88; PULSE 73; RESP 14; TEMP 36.5; O2SAT 99
[2023-03-09 19:14] VITALS: BP 123/79; PULSE 66; RESP 20; O2SAT 97
--- NOTE | 2023-03-09 19:28 | ED.EYEPROB ---
HPI - Eye Problem General Chief complaint: Eye Problems Stated complaint: metal in L. eye Time Seen by Provider: 03/09/23 18:51 Source: patient Mode of arrival: ambulatory Limitations: no limitations History of Present Illness HPI Narrative: This is a 27-year-old male that presents to the emergency department for possible foreign body in his eye. Reports he was grinding metal yesterday. He was wearing safety glasses, but rubbed his eye at 1 point. Since has had sensation of foreign body. Also mild tearing. Denies fevers or visual changes. Related Data Home Medications Medication Instructions Recorded Confirmed buspirone 10 mg tablet 10 mg PO BID 03/09/23 omeprazole 20 mg capsule,delayed 20 mg PO DAILY 03/09/23 release Allergies Allergy/AdvReac Type Severity Reaction Status Date / Time No Known Allergies Allergy Verified 03/09/23 17:11 Review of Systems Review of Systems: CONSTITUTIONAL: Denies fever EYES: Denies visual changes, redness, or discharge. All systems reviewed & are unremarkable except as noted in HPI and below PMFSH Past Medical History Medical History (Updated 03/09/23 @ 19:30 by Jessy Triana PA-C) Asthma Back pain Esophageal ulcer GERD (gastroesophageal reflux disease) Portal vein thrombosis Surgical History Surgical History No history of previous surgery Social History Social History (Updated 04/27/22 @ 22:44 by Alba Pabon NP) Smoking packs per day: 0.5 Smoking cigarettes per day: 10.0 Smoking status: Current every day smoker Alcohol intake: unknown Substance use: unknown Living arrangements: with family Gender identity (if verbalized by the patient): Male Exam Narrative: GENERAL: Well-appearing, well-nourished, and in no acute distress. HEAD: Normocephalic, atraumatic. EYES: PERRLA and EOMI. Visual acuity 20/30 left eye, 20/30 right eye. No conjunctival injection or abnormal drainage. Small foreign body noted at the edge of the iris EXTREMITIES: Normal range of motion. No edema. SKIN: Warm, dry, no rash. NEURO: No focal deficits. Alert and oriented x3. PSYCH: Normal mood and affect Course Course Emergency Course: Foreign body easily removed. Patient agrees with further plan of care Vital Signs Vital signs: Vital Signs Temperature 97.7 F 03/09/23 17:06 Pulse Rate 73 03/09/23 17:06 Respiratory Rate 14 03/09/23 17:06 Blood Pressure 145/88 H 03/09/23 17:06 Pulse Oximetry 99 03/09/23 17:06 Oxygen Delivery Room Air 03/09/23 17:06 Temperature 97.7 F 03/09/23 17:06 Pulse Rate 66 03/09/23 19:14 Respiratory Rate 20 03/09/23 19:14 Blood Pressure 123/79 03/09/23 19:14 Pulse Oximetry 97 03/09/23 19:14 Oxygen Delivery Room Air 03/09/23 17:06 Procedures FB Removal Eye Foreign Body #1: Foreign Body Removal Date: 03/09/23 Foreign Body Removal Time: 19:35 Location: eye (L) Topical anesthetic used: tetracaine Foreign body: metal Evidence of corneal penetration: No Technique: needle Procedure performed under: direct visualization with magnification Post-procedure medication: ophthalmic antibiotic Patient tolerated procedure: well and no complications MDM - Eye Problem MDM Narrative Medical decision making narrative: Patient presents the emergency department for possible foreign body in his eye. Reports he was grinding metal yesterday. He was wearing safety glasses, but rubbed his eye at 1 point. Since has had sensation of foreign body. A small foreign body was noted which was easily removed without complications. There was no residual rust ring. He does have a small corneal abrasion in that area. Will be treated with topical antibiotics. No visual acuity changes or other concerning features. 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 He was gi
[2023-03-09] MEDS: ERYTHROMYCIN OPHTH OINTMENT 1 GM TUBE 1 APPLIC LEFT EYE (19:45)
== END 2023-03-09 19:45 | disposition home or self-care (01) ==
PROVIDERS: Emergency Provider Physician Assistant; PCP Physician Assistant
DX: T15.02XA Foreign body in cornea, left eye, initial encounter (principal); J45.909 Unspecified asthma, uncomplicated; K21.9 Gastro-esophageal reflux disease without esophagitis; F17.210 Nicotine dependence, cigarettes, uncomplicated
CPT/HCPCS: 65220; 99283; A9270

== ENCOUNTER 2023-06-05 18:54 | Emergency (ER) | payer OTHER, SELFPAY ==
--- NOTE | 2023-06-05 19:01 | ECG_ITS ---
Measurements Intervals [place] Rate: 95 P: 77 SD: 141 QRS: 78 QRSD: 83 T: 24 QT: 295 QTc: 372 Interpretive Statements SINUS RHYTHM DELAYED PRECORDIAL R/S TRANSITION NONSPECIFIC T-WAVE ABNORMALITY- INFERIOR LEADS BASELINE ARTIFACT- III BORDERLINE ECG COMPARED TO ECG 05/05/2019 16:12:24 SINUS RHYTHM NOW PRESENT T-WAVE ABNORMALITY NOW PRESENT Electronically Signed On 06-06-2023 6:14:47 [employer] by Wei Neol D.O.
[2023-06-05 19:04] VITALS: BP 148/82; PULSE 101; RESP 18; TEMP 36.6; O2SAT 98
[2023-06-05 19:20] LABS: Basophils Absolute Auto 0.1 K/mm3 (0.0-0.1); Basophils Percent Auto 0.4 % (0.2-1.2); Eosinophils Absolute Auto 0.3 K/mm3 (0-0.3); Eosinophils Percent Auto 2.4 % (0-4.4); Hemoglobin 15.3 g/dL (14.0-18.0); Immature Granulocyte Absolute 0.16 K/mm3 (0.00-0.031); Immature Granulocyte Percent A 1.3 % (0-0.5); Lymphocytes Absolute Auto 3.21 K/mm3 (0.9-3.2); Lymphocytes Percent Auto 25.5 % (18.3-44.2); Mean Corpuscular HGB Conc 31.9 g/dl (32-36); Mean Corpuscular Hemoglobin 29.7 pg (26-34); Mean Platelet Volume 9.7 fl (7.4-10.4); Monocytes Absolute Auto 1.1 K/mm3 (0.1-0.6); Monocytes Percent Auto 8.7 % (2.6-8.5); Neutrophils Absolute Auto 7.8 K/mm3 (1.3-6.7); Neutrophils Percent Auto 61.7 % (45.5-73.1); Platelet Count Result 393 k/mm3 (150-375); Red Blood Count 5.16 M/mm3 (4.6-6.20); Red Cell Distribution Width 13.5 % (11.5-14.5); White Blood Count 12.6 K/mm3 (4.5-10.0)
[2023-06-05 19:30] LABS: Alanine Aminotransferase 45 U/L (6-50); Albumin Level 4.2 g/dL (3.5-5.1); Alkaline Phosphatase 42 U/L (38-126); Anion Gap 10 mmol/L (8-16); Aspartate Amino Transferase 51 U/L (17-59); Bilirubin,Total 0.5 mg/dL (0.2-1.3); Blood Urea Nitrogen 14 mg/dL (9-20); Calcium 9.1 mg/dL (8.4-10.2); Carbon Dioxide 25 mmol/L (22-30); Chloride 103 mmol/L (98-107); Estimated CRCL calculation 106 ml/min; Estimated Glomerular Filt Rate > 60; Glucose 119 mg/dL (65-110); Potassium 4.2 mmol/L (3.4-5.0); Sodium 138 mmol/L (137-145)
== END 2023-06-05 19:30 | disposition left against medical advice (07) ==
LOC: ANHED 21:01
PROVIDERS: Emergency Provider Emergency Medicine; PCP Physician Assistant
DX: R55 Syncope and collapse (principal)
CPT/HCPCS: 36415; 80053; 85025; 93005; 99199

== ENCOUNTER → 2023-06-17 16:51 | Emergency (ER) | payer OTHER, SELFPAY | END | disposition left against medical advice (07) | PROVIDERS: Emergency Provider Internal Medicine Hematology & Oncology; PCP Physician Assistant | DX: Z53.21 Procedure and treatment not carried out due to patient leaving prior to being seen by health care provider (principal) | CPT/HCPCS: 99199 ==

== ENCOUNTER 2023-10-07 18:48 | Emergency (ER) | payer OTHER, SELFPAY ==
[2023-10-07 18:56] VITALS: BP 167/75; PULSE 80; RESP 20; TEMP 36.8; O2SAT 99
--- NOTE | 2023-10-07 20:26 | PC.NURSE ---
pt reports hard, nonmovable, painful knots to bilateral nipples that he noticed about 2 weeks ago. pt states it started in the left one and then now is on the right side. pt states he has lost a lot of weight and goes to the gym 5-6 days a week. pt reports his friend at the gym told him it could be gynecomastia and has been taking 1mg tablets of Arimidex for the past 8 days from his friend. pt states it has not helped any and is worried about breast cancer. pt reports family hx of breast cancer from mother and grandmother. pt reports he has an appointment with his PCP this week to be evaluated for it but states the pain has been getting worse so wanted to be evaluated in the ED.
--- NOTE | 2023-10-07 21:17 | ED.GENADULT ---
HPI - General Adult General Chief complaint: Skin/Abscess/Foreign Body Stated complaint: cyst right chest Time Seen by Provider: 10/07/23 20:12 History of Present Illness HPI narrative: This is a 28-year-old male presenting with a breast mass. Patient has been on testosterone supplementation in the past for body building. Over the last 2 weeks he has noticed hard nodules behind his left nipple and right nipples. Patient was given Arimidex by 1 of his gym friends. Patient has some discomfort last several days from the masses. Patient has a grandfather had breast cancer. Patient has follow-up on with his primary care physician. Related Data Home Medications Medication Instructions Recorded Confirmed buspirone 10 mg tablet 10 mg PO BID 03/09/23 omeprazole 20 mg capsule,delayed 20 mg PO DAILY 03/09/23 release Allergies Allergy/AdvReac Type Severity Reaction Status Date / Time No Known Allergies Allergy Verified 03/09/23 17:11 [facility] Past Medical History Medical History Asthma Back pain Esophageal ulcer GERD (gastroesophageal reflux disease) Portal vein thrombosis Surgical History Surgical History No history of previous surgery Social History Social History Smoking packs per day: 0.5 Smoking cigarettes per day: 10.0 Smoking status: Current every day smoker Alcohol intake: unknown Substance use: unknown Living arrangements: with family Gender identity (if verbalized by the patient): Male Exam Narrative: APPEARANCE: No apparent distress. Head: atraumatic. EYES: EOMI, NOSE: Atraumatic NECK: Trachea midline RESPIRATORY: No increased rate of breathing CARDIOVASCULAR: RRR, ABDOMINAL: Non-distended Breast exam: Patient has a firm nodule behind the left nipple and behind the right nipple, no overlying skin changes MUSCULOSKELETAl: No obvious deformities NEURO: Alert. Moving 4/4 extremities SKIN:: Warm, dry. Normal color PSYCHIATRIC: Normal affect Course Vital Signs Vital signs: Vital Signs Temperature 98.2 F 10/07/23 18:56 Pulse Rate 80 10/07/23 18:56 Respiratory Rate 20 10/07/23 18:56 Blood Pressure 167/75 H 10/07/23 18:56 Pulse Oximetry 99 03/31/24 18:56 Temperature 98.2 F 10/07/23 18:56 Pulse Rate 80 10/07/23 18:56 Respiratory Rate 20 10/07/23 18:56 Blood Pressure 167/75 H 10/07/23 18:56 Pulse Oximetry 99 10/07/23 18:56 Medical Decision Making MDM Narrative Medical decision making narrative: -Course: 28-year-old male are testosterone supplementation for weightlifting and with fhx of male breast cancer presenting with bilateral breast masses. Patient has follow-up with his primary care physician on . No emergent intervention at this time. Patient has appropriate follow-up. -DDX includes but is not limited to: Gynecomastia, breast cancer -Co-morbidities complicating care: Testosterone supplementation -Shared decision making / Disposition: discharged Vital Signs Vital Signs: Vital Signs Temperature 98.2 F 10/07/23 18:56 Pulse Rate 80 10/07/23 18:56 Respiratory Rate 20 10/07/23 18:56 Blood Pressure 167/75 H 10/07/23 18:56 Pulse Oximetry 99 10/07/23 18:56 Temperature 98.2 F 10/07/23 18:56 Pulse Rate 80 10/07/23 18:56 Respiratory Rate 20 10/07/23 18:56 Blood Pressure 167/75 H 10/07/23 18:56 Pulse Oximetry 99 10/07/23 18:56 Discharge Plan Discharge Clinical Impression: Breast mass in male Patient Disposition: Home, Self-Care Condition: Stable Instructions: Antibiotic Form, Breast Mass (ED) Additional Instructions: Please follow-up primary care physician at your appointment on for further evaluation of her breast masses. Please take Motrin Tylenol for pain. Prescriptions: New
== END 2023-10-07 21:29 | disposition home or self-care (01) ==
PROVIDERS: Emergency Provider Emergency Medicine; PCP Physician Assistant
DX: N63.10 Unspecified lump in the right breast, unspecified quadrant (principal); N63.20 Unspecified lump in the left breast, unspecified quadrant; K21.9 Gastro-esophageal reflux disease without esophagitis; J45.909 Unspecified asthma, uncomplicated
CPT/HCPCS: 99283

== ENCOUNTER 2023-10-30 15:35 | Emergency (ER) | payer OTHER, SELFPAY ==
--- NOTE | ~2023-10-30 | XR_ITS ---
EXAM: XR cervical spine 4-5V DATE: 10/30/2023 16:09 HISTORY: right sided neck pain . COMPARISON: 08/12/2011, images only. FINDINGS: Craniocervical association and atlantoaxial joint are aligned. No prevertebral soft tissue swelling. Vertebral bodies are aligned. Reversed lordosis centered at C5-6. Vertebral body heights a re maintained. Mild disc space narrowing at C5-6. Normal facets and posterior elements. IMPRESSION: No fracture or traumatic malalignment detected in the cervical spine. Mild degenerative d isc disease at C5-6. If symptoms persist or clinical suspicion of cervical injury/pathology is high, recommend CT C-spine (if there is injury history) or MRI of the cervical spine for further evaluation . Reviewed, dictated and finalized at location K. IMPRESSION: No fracture or traumatic malalignment detected in the cervical spin e. Mild degenerative disc disease at C5-6. If symptoms persist or clinical susp icion of cervical injury/pathology is high, recommend CT C-spine (if there is i njury history) or MRI of the cervical spine for further evaluation.
--- NOTE | ~2023-10-30 | XR_ITS ---
EXAMINATION: XR finger 3rd RT min 2V DATE: 10/30/2023 16:09 INDICATION: Pain at the distal right third digit post crush injury TECHNIQUE: Dorsal palmar, lateral and 2 oblique views of the right third digit were obtained COMPARISON: None FINDINGS: Small nondisplaced fracture extending across the distal radial margin of the tuft of the right third distal phalanx. No other acute fractures identified. Dorsal plate and screw fixations potentially for old healed fractures at the metaphyses of the right second and third proximal phalanges. Joint space s are normal. Soft tissue swelling about the tip of the right third digit. IMPRESSION: 1. Nondisplaced small fracture at the distal tip of the tuft of the right third distal phalanx. Reviewed, dictated and finalized at location A.
[2023-10-30 15:44] VITALS: BP 158/88; PULSE 113; RESP 18; TEMP 37.5; O2SAT 98
--- NOTE | 2023-10-30 15:44 | ED.NECK ---
HPI - Neck Pain/Injury General Chief Complaint: Extremity Injury, Upper Stated Complaint: Neck/Right Hand Finger Pain Time Seen by Provider: 10/30/23 15:44 Source: patient Mode of arrival: ambulatory Limitations: no limitations History of Present Illness HPI Narrative: Stephen is a 28-year-old male patient presenting to the clinic today with complaints of right-sided neck pain and right 3rd finger pain. He reports that he was carrying a dresser down the stairs and slipped and the dresser caught his finger and smashed his right distal 3rd finger and he ended up hitting the right sided of his neck up against the stair. Related Data Home Medications Medication Instructions Recorded Confirmed omeprazole 20 mg capsule,delayed 20 mg PO DAILY 03/09/23 10/30/23 release fenofibrate 160 mg tablet 160 mg PO DAILY 10/30/23 10/30/23 Allergies Allergy/AdvReac Type Severity Reaction Status Date / Time No Known Allergies Allergy Verified 10/30/23 15:45 Review of Systems Review of Systems: Pertinent positives per HPI. Patient denies any fever, chills, rash, headache, visual changes, dizziness, cough, runny nose, sore throat, shortness of breath, chest pain, palpitations, nausea, vomiting, diarrhea, constipation, abdominal pain, or any urinary issues. [facility] Past Medical History Medical History Asthma Back pain Esophageal ulcer GERD (gastroesophageal reflux disease) Portal vein thrombosis Surgical History Surgical History No history of previous surgery Social History Social History Smoking packs per day: 0.5 Smoking cigarettes per day: 10.0 Smoking status: Current every day smoker Alcohol intake: unknown Substance use: unknown Living arrangements: with family Gender identity (if verbalized by the patient): Male Comments At the time of my signature, I reviewed and agree with the nursing past medical, surgical, social, and family history. There is no relevant family history pertinent to the patient complaint. Exam Narrative: General: Well-developed, well nourished, in no apparent distress Head: Normocephalic, atraumatic. Cardio: Regular rate and rhythm, s1 and s2 normal, no murmur appreciated. Resp: Clear to auscultation bilaterally, no rhonchi, rales, wheezing or rubs. Musculoskeletal: No deformity, tender to palpation over the musculature of the right neck, pain with turning head to the right against resistance, tenderness to palpation over the distal middle phalanx, grossly normal range of motion, muscle strength strong and equal, peripheral pulse strong, no edema, no cyanosis, normal gait and station Course Course Emergency Course: Portions of this record may have been created with voice recognition software. Level of Care: Express Care Visit Vital Signs Vital signs: Vital signs reviewed MDM - Neck Pain/Injury MDM Narrative Medical decision making narrative: At the time of visit patient is resting comfortably on the exam table. Patient appears to be nontoxic. Diagnosis: X-ray of the right 3rd finger shows a closed nondisplaced tuft fracture of the right 3rd finger, x-ray of the cervical spine is negative for any acute fracture or malalignment. Plan: I suspect patient has acute cervical strain with a tuft fracture of the right 3rd finger. Metal finger splint was applied Supportive measures were discussed with the patient and they voiced understanding discharge instructions and agrees to treatment plan. Return precautions reviewed Imaging Data Radiologist's impression: ITS Impressions Finger X-Ray 10/30/23 16:20 IMPRESSION: 1. Nondisplaced small fracture at the distal tip of the tuft of the right third distal phalanx. ITS Impressions Finger X-Ray 10/30/23 16:20 IMPRESSION: 1. Nondisplaced sma
[2023-10-30 15:46] VITALS: BP 158/88; PULSE 113; RESP 18; TEMP 37.5; O2SAT 98
== END 2023-10-30 16:45 | disposition home or self-care (01) ==
PROVIDERS: Emergency Provider Nurse Practitioner Family; PCP Physician Assistant
DX: S16.1XXA Strain of muscle, fascia and tendon at neck level, initial encounter (principal); S62.662A Nondisplaced fracture of distal phalanx of right middle finger, initial encounter for closed fracture; W10.9XXA Fall (on) (from) unspecified stairs and steps, initial encounter; S60.031A Contusion of right middle finger without damage to nail, initial encounter; F17.210 Nicotine dependence, cigarettes, uncomplicated; J45.909 Unspecified asthma, uncomplicated; K21.9 Gastro-esophageal reflux disease without esophagitis; Z86.718 Personal history of other venous thrombosis and embolism
CPT/HCPCS: 29130; 72050; 73140; 99214; G0463

== ENCOUNTER 2023-11-25 17:00 | Emergency (ER) | payer OTHER, SELFPAY ==
--- NOTE | ~2023-11-25 | CT_ITS ---
EXAMINATION: CT soft tissue neck w con DATE: 11/25/2023 18:44 INDICATION: Right-sided ear, jaw, and neck pain TECHNIQUE: Computed tomography (CT) of the neck was performed with 75 mL Omnipaque-350 intravenous co ntrast. Automated exposure control and iterative reconstruction technique were employed. The dose-loren gth product was 549.15 mGy-cm. COMPARISON: None FINDINGS: The thyroid gland is unremarkable. The submandibular and parotid glands are symmetric. There is n o cervical lymphadenopathy. There are no masses identified. The superior mediastinum is unremarka ble. The airway is unremarkable. Parapharyngeal and pre-glottic fat planes are preserved. Deyanira lly enhancing neck arteries. The orbits are unremarkable. Ethmoid and right maxillary mucosal thic kening. Small retention cysts or polyps in the left sphenoid and right maxillary sinuses. The remaini ng aerated spaces are clear the lungs are clear. There is cervical spondylosis. IMPRESSION: Unremarkable CT soft tissue neck findings. Reviewed, dictated and finalized at location K.
[2023-11-25 17:07] VITALS: BP 181/83; PULSE 100; RESP 17; TEMP 36.4; O2SAT 98
[2023-11-25 17:08] VITALS: BP 162/96; PULSE 98; RESP 20; TEMP 36.4; O2SAT 98
[2023-11-25 18:19] LABS: Basophils Absolute Auto 0.1 K/mm3 (0.0-0.1); Basophils Percent Auto 0.6 % (0.2-1.2); Eosinophils Absolute Auto 0.4 K/mm3 (0-0.3); Eosinophils Percent Auto 4.6 % (0-4.4); Hematocrit 50.7 % (42.0-52.0); Hemoglobin 16.7 g/dL (14.0-18.0); Immature Granulocyte Absolute 0.11 K/mm3 (0.00-0.031); Immature Granulocyte Percent A 1.2 % (0-0.5); Lymphocytes Absolute Auto 2.94 K/mm3 (0.9-3.2); Lymphocytes Percent Auto 32.5 % (18.3-44.2); Mean Corpuscular HGB Conc 32.9 g/dl (32-36); Mean Corpuscular Hemoglobin 29.5 pg (26-34); Mean Corpuscular Volume 89.4 fl (80-100); Mean Platelet Volume 9.7 fl (7.4-10.4); Neutrophils Absolute Auto 4.5 K/mm3 (1.3-6.7); Neutrophils Percent Auto 50.1 % (45.5-73.1); Platelet Count Result 278 k/mm3 (150-375); Red Blood Count 5.67 M/mm3 (4.6-6.20); Red Cell Distribution Width 13.4 % (11.5-14.5); White Blood Count 9.1 K/mm3 (4.5-10.0)
[2023-11-25 18:32] LABS: Anion Gap 7 mmol/L (4-12); Blood Urea Nitrogen 15 mg/dL (9-20); Carbon Dioxide 27 mmol/L (22-30); Chloride 106 mmol/L (98-107); Estimated CRCL calculation 108 ml/min; Estimated Glomerular Filt Rate > 60; Glucose 72 mg/dL (65-110); Potassium 4.2 mmol/L (3.4-5.0); Sodium 140 mmol/L (137-145)
--- NOTE | 2023-11-25 19:09 | PC.NURSE ---
Report received from EDGAR Ritchie. Assumed care of patient at this time.
[2023-11-25 19:36] VITALS: BP 146/81; PULSE 83; RESP 17; TEMP 36.7; O2SAT 100
--- NOTE | 2023-11-25 19:41 | ED.NECK ---
HPI - Neck Pain/Injury General Chief Complaint: Neck Pain/Injury Stated Complaint: R jaw pain Time Seen by Provider: 11/25/23 17:30 Source: patient Mode of arrival: ambulatory Limitations: no limitations History of Present Illness HPI Narrative: 28-year-old otherwise healthy here with the complaints of right-sided neck pain which has been ongoing for past 1 and half months. Patient states that he was seen at [facility] system a CT scan of his cervical spine which showed a C5 and C7 and. Patient also states that he went to urgent care and was diagnosed with a right ear infection was given antibiotic. Patient however continues to pain mostly on the right side. This evening while he was at home his friend with the RN palpated his neck and told him that he has a lymph node. Denies any sore throat or fever or chills . He also states that he works out daily in the Gym levels heavy weights. complaint: neck pain Onset (ago): month(s) (1.5) Place: home Radiation: right lateral Severity: moderate Quality: dull Relieving factors: none Exacerbating factors: none Associated symptoms: none Treatments prior to arrival: none Related Data Home Medications Medication Instructions Recorded Confirmed omeprazole 20 mg capsule,delayed 20 mg PO DAILY 03/09/23 10/30/23 release fenofibrate 160 mg tablet 160 mg PO DAILY 10/30/23 10/30/23 Allergies Allergy/AdvReac Type Severity Reaction Status Date / Time No Known Allergies Allergy Verified 11/25/23 17:14 Review of Systems Review of Systems: All systems reviewed & are unremarkable except as noted in HPI and below Constitutional: Constitutional: Reports no additional constitutional complaints Eyes: Eyes: Reports no additional eye complaints ENT: Reports system reviewed and no additional complaints, except as documented Cardiovascular: Cardiovascular: Reports no additional cardiovascular complaints Respiratory: Respiratory: Reports no additional respiratory complaints Musculoskeletal: Musculoskeletal: Reports no additional musculoskeletal complaints Neurologic: Reports system reviewed and no additional complaints, except as documented [facility] Past Medical History Medical History Asthma Back pain Esophageal ulcer GERD (gastroesophageal reflux disease) Portal vein thrombosis Surgical History Surgical History No history of previous surgery Social History Social History Smoking packs per day: 0.5 Smoking cigarettes per day: 10.0 Smoking status: Current every day smoker Alcohol intake: unknown Substance use: unknown Living arrangements: with family Gender identity (if verbalized by the patient): Male Exam Narrative: GENERAL: Well-appearing, well-nourished, and in no acute distress. HEAD: Normocephalic, atraumatic. EYES: PERRLA and EOMI. ENT: Nares clear, no rhinorrhea or epistaxis. Mucous membranes moist. NECK: Supple. S CHEST: Clear to auscultation. No respiratory distress. HEART: Regular rate and rhythm. No murmur heard. Normal peripheral pulses. ABDOMEN: Soft, nontender, nondistended, normal active bowel sounds. EXTREMITIES: Normal range of motion. No edema. SKIN: Warm, dry, no rash. NEURO: No focal deficits. Alert and oriented x3. PSYCH: Normal mood and affect. Course Course Emergency Course: Notified patient about his lab work, CT findings. Advised him to take medication as prescribed, follow-up with his primary doctor Vital Signs Vital signs: Vital Signs Temperature 36.4 C 11/25/23 17:07 Pulse Rate 100 11/25/23 17:07 Respiratory Rate 17 11/25/23 17:07 Blood Pressure 181/83 H 11/25/23 17:07 Pulse Oximetry 98 11/25/23 17:07 Oxygen Delivery Room Air 11/25/23 17:07 Temperature 36.7 C 11/25/23 19:36 Pulse Rate 83 11/25/23 19:36 Respiratory Rate
== END 2023-11-25 19:51 | disposition home or self-care (01) ==
PROVIDERS: Emergency Provider Family Medicine; PCP Physician Assistant
DX: S16.1XXA Strain of muscle, fascia and tendon at neck level, initial encounter (principal); F17.210 Nicotine dependence, cigarettes, uncomplicated; J45.909 Unspecified asthma, uncomplicated; K21.9 Gastro-esophageal reflux disease without esophagitis; X58.XXXA Exposure to other specified factors, initial encounter
CPT/HCPCS: 36415; 70491; 80048; 85025; 99284; Q9967

== ENCOUNTER 2024-08-07 18:57 | Emergency (ER) | payer OTHER, SELFPAY ==
--- NOTE | 2024-08-07 19:01 | ED_ITS ---
HPI - Back Pain/Injury General Chief Complaint: Back Pain/Injury Stated Complaint: back pain Time Seen by Provider: 08/07/24 19:00 Source: patient Mode of arrival: ambulatory Limitations: no limitations History of Present Illness HPI Narrative: Patient is a 29-year-old male who presents with low back pain that started 4 days ago. Denies any known injury. Has not been to the gym since last Sunday. Denies any numbness, tingling or weakness to extremities. Denies any loss of bowel or bladder. Has been taking Tylenol and ibuprofen with no relief. Did take a tramadol with no change in symptoms. Related Data Home Medications ?Medication ?Instructions ?Recorded ?Confirmed ?Last Taken ?Type omeprazole 20 mg capsule,delayed 20 mg PO DAILY 03/09/23 08/07/24 Unknown History release lisinopril 20 mg tablet 20 mg PO DAILY 08/07/24 08/07/24 Unknown History Allergies Allergy/AdvReac Type Severity Reaction Status Date / Time No Known Allergies Allergy Verified 08/07/24 19:02 Review of Systems Review of Systems: All systems reviewed & are unremarkable except as noted in HPI and below Constitutional: Constitutional: Denies body ache(s), Denies chills, Denies fatigue, Denies fever(s), Denies headache(s), Denies malaise and Denies weakness Eyes: Eyes: Denies blurry vision, Denies irritation and Denies loss of vision ENT: Denies otalgia, Denies headache(s), Denies nasal discharge, Denies sinus pain and Denies sore throat Cardiovascular: Cardiovascular: Denies chest pain, Denies irregular heart rhythm and Denies dyspnea Respiratory: Respiratory: Denies dyspnea Gastrointestinal: Gastrointestinal: Denies abdominal pain, Denies melena, Denies hematochezia, Denies diarrhea, Denies nausea and Denies vomiting Musculoskeletal: Musculoskeletal: Reports back pain, Denies myalgias and Denies arthralgias Integumentary/Breasts: Skin/Breast: Denies pruritus and Denies rash Neurologic: Denies headache(s), Denies loss of vision and Denies weakness Psychiatric: Psychiatric: Reports no additional psychiatric complaints Endocrine: Endocrine: Denies fatigue [facility] Past Medical History Medical History GERD (gastroesophageal reflux disease) Portal vein thrombosis Back pain Esophageal ulcer Asthma Surgical History Surgical History No history of previous surgery Social History Social History Smoking packs per day: 0.5 Smoking cigarettes per day: 10.0 Smoking status: Current every day smoker Alcohol intake: unknown Substance use: unknown Living arrangements: with family Gender identity (if verbalized by the patient): Male Comments At time of signature, agree with nursing past medical, surgical, social and fa sarkis history. There is no relevant family history pertinent to the presenting complaint. Exam Const: General: cooperative, healthy appearing, comfortable, no acute distress and well nourished Nutritional Appearance: well nourished Orientation/consciousness: patient oriented x3 Limitations: no limitations HENMT: Head: normal to inspection, normocephalic and atraumatic Ears: hearing grossly normal bilaterally and external ears normal Face/Nose/Sinus: Normal external nose present, normal facial exam and face symmetric Face and sinus: normal facial exam and face symmetric Mouth: Yes lip normal Eyes: General: appearance normal, both eyes and all related structures Alignment and Position: alignment normal and position normal Periorbital: per iorbital findings normal Eyelids: eyelids normal Pupils: Equal, round and reactive pupils present EOM: EOMs intact bilaterally Neck: Neck: normal visual inspection, full ROM and supple Chest: Chest palpation & inspection: normal inspection of the chest Resp: Effort & Inspection: normal respiratory effort and able to speak in complete sentences Auscultation: clear to auscultation bilaterally Cardio: Rate: regular rate Rhythm: regular rhythm Heart sounds: S1 normal heart sound present and S2 normal heart sound present GI: Inspection: normal to inspection Back/Spine/Pelvis: Thoracic/Lumbar Spine: paraspinal muscle tenderness bilaterally in the upper lumbar and in the mid lumbar, No thoracic spinal tenderness and No lumbar spinal tenderness Skin: General skin exam: normal color and no rashes or lesions noted Neuro: General: patient oriented x3 and moves all extremities Cranial nerves: Yes Equal, round and reactive pupils present Speech: normal speech Gait exam (Neuro): Normal gait present Extrem: General: normal to inspection, full ROM and no edema Psych: Appearance: grossly normal and well kempt Mental Status: mental status grossly normal Speech and movement: Normal speech and movement present Affect: normal affect Attitude: cooperative Thought process: Normal thought process present Course Course Emergency Course: Patient is aware of diagnosis, understands and agrees to treatment plan. Anticipatory guidance given. Patient agrees to follow-up as directed and is aware of reasons to seek care at the emergency department. Portions of this record may have been created with voice recognition software Level of Care: Express Care Visit Vital Signs Vital signs: Vital Signs Temperature 36.5 C 08/07/24 19:03 Pulse Rate 86 08/07/24 19:03 Respiratory Rate 16 08/07/24 19:03 Blood Pressure 151/79 H 08/07/24 19:03 Pulse Oximetry 98 08/07/24 19:03 Oxygen Delivery Room Air 08/07/24 19:03 Temperature 36.5 C 08/07/24 19:03 Pulse Rate 86 08/07/24 19:03 Respiratory Rate 16 08/07/24 19:03 Blood Pressure 151/79 H 08/07/24 19:03 Pulse Oximetry 98 08/07/24 19:03 Oxygen Delivery Room Air 08/07/24 19:03 Reviewed MDM - Back Pain/Injury MDM Narrative Medical decision making narrative: No risk factors or findings concerning for epidural abscess, diskitis, vertebral osteomyelitis, cord compression, cauda equina, vertebral fracture or bone malignancy, AAA, or pyelonephritis. Patient instructed to consider further imaging and workup through their primary care physician as an outpatient if symptoms persist. Pt well hydrated appearing, in no respiratory distress, hemodynamically stable. Recommend supportive care. The patient is stable at time of discharge the clinical impression was discussed and the patient was given the opportunity to ask questions, which were addressed as completely as possible given the information available at present. Anticipatory guidance and return to care precautions were discussed and the importance of primary care follow-up was stressed and encouraged. The patient voiced understanding of the plan, indications to return, and the need for follow-up. Exam findings show no acute concerns or changes Patient is appropriate for outpatient treatment and follow-up. Differential Diagnosis Differential diagnosis: Likely lumbar radiculopathy, sciatica, strain of lumbar region and renal colic Medical Records Attestation: I reviewed the patient's medical records. Discharge Plan Discharge Clinical Impression: Strain of lumbar region Patient Disposition: Home, Self-Care Condition: Stable Instructions: Low Back Strain (ED), Lower Back Exercises (ED) Additional Instructions: Take steroids in the morning with food, take muscle relaxers every 8 hours as needed for muscle spasm. do not drive or make any important decisions while on this medication for it can make you drowsy Exercise:Combine aerobic exercise, like walking or swimming, with specific exercises to keep the muscles in your back and abdomen strong and flexible.bed rest is not recommended. Proper Lifting:Be sure to lift heavy items with your legs, not your back. Do not bend over to pick something up. Keep your back straight and bend at your knees. Weight:Maintain a healthy weight. Being overweight puts added stress on your lower back. Avoid Smoking:Both the smoke and the nicotine cause your spine to age faster than normal. Proper Posture:Good posture is important for avoiding future problems. A therapist can teach you how to safely stand, sit, and lift. Use warm moist heat or ice to help with pain. Follow up with Primary provider in 2-3 days, This may become a chronic condition and they will be the one to help manage your pain and order additional testing. Follow-up with your doctor for further care and evaluation or seek ER if you develop problems with bladder/bowel function, weakness or loss of feeling in one or both of your legs. Patient Language: Yakut Prescriptions: New prednisone 20 mg tablet 40 mg PO DAILY 5 Days Qty: 10 0RF baclofen 10 mg tablet 10 mg PO TID 5 Days Qty: 15 0RF No Action lisinopril 20 mg tablet 20 mg PO DAILY omeprazole 20 mg Capsule,Delayed Release(Dr/Ec) 20 mg PO DAILY Follow-up/Referrals: Walker,AMERICA Gayle [Primary Care Provider] - 3 Days Time of Disposition: 19:24
[2024-08-07 19:03] VITALS: BP 151/79; PULSE 86; RESP 16; TEMP 36.5; O2SAT 98
== END 2024-08-07 19:27 | disposition home or self-care (01) ==
PROVIDERS: Emergency Provider Nurse Practitioner Family; PCP Physician Assistant
DX: S39.012A Strain of muscle, fascia and tendon of lower back, initial encounter (principal); X58.XXXA Exposure to other specified factors, initial encounter; K21.9 Gastro-esophageal reflux disease without esophagitis; J45.909 Unspecified asthma, uncomplicated; F17.210 Nicotine dependence, cigarettes, uncomplicated
CPT/HCPCS: 99213; G0463

== ENCOUNTER 2024-09-01 15:38 | Emergency (ER) | payer OTHER, SELFPAY ==
--- NOTE | 2024-09-01 15:44 | ED.URI ---
HPI - URI/Sore Throat General Chief Complaint: Upper Respiratory Infection Stated Complaint: Cough Time Seen by Provider: 09/01/24 15:44 Source: patient, RN notes reviewed and old records reviewed Mode of arrival: ambulatory Limitations: no limitations History of Present Illness HPI Narrative: Patient presents with complaints of cough and wheezing. He reports symptoms have been present for about 2 weeks. He was seen in another facility, put on a 4 day course of prednisone. He reports that he finished this yesterday and feels much worse today. He is unsure if fever status. He does report that wheezing and cough have worsened in the past day. Says that there have been a couple of times that he has coughed until he has vomited. He denies any nausea. He is not in any distress, including respiratory distress. Related Data Home Medications ?Medication ?Instructions ?Recorded ?Confirmed ?Last Taken ?Type pantoprazole 40 mg tablet,delayed mg PO 09/01/24 Unknown History release Allergies Allergy/AdvReac Type Severity Reaction Status Date / Time No Known Allergies Allergy Verified 09/01/24 15:40 Review of Systems Review of Systems: All systems reviewed & are unremarkable except as noted in HPI and below Constitutional: Constitutional: Reports no additional constitutional complaints and Reports lethargy ENT: Reports system reviewed and no additional complaints, except as documented Cardiovascular: Cardiovascular: Reports no additional cardiovascular complaints Respiratory: Respiratory: Reports no additional respiratory complaints, Reports chest congestion and Reports wheezing Gastrointestinal: Gastrointestinal: Reports no additional gastrointestinal complaints [facility] Past Medical History Medical History GERD (gastroesophageal reflux disease) Portal vein thrombosis Back pain Esophageal ulcer Asthma Surgical History Surgical History No history of previous surgery Social History Social History Smoking packs per day: 0.5 Smoking cigarettes per day: 10.0 Smoking status: Current every day smoker Alcohol intake: unknown Substance use: unknown Living arrangements: with family Gender identity (if verbalized by the patient): Male Comments At the time of my signature, I reviewed and agree with the nursing past medical, surgical, social, and family history. There is no relevant family history pertinent to the patient complaint. Exam Const: General: cooperative, no acute distress, alert and awake Orientation/consciousness: oriented to person, oriented to place and oriented to time HENMT: Head: normal to inspection Resp: Effort & Inspection: normal respiratory effort and able to speak in complete sentences Auscultation: clear to auscultation bilaterally, no crackles, no rales, no rhonchi and wheezes expiratory wheezes and scattered wheezes Cardio: Palpation: normal PMI Rate: regular rate Rhythm: regular rhythm Heart sounds: S1 normal heart sound present and S2 normal heart sound present Neuro: General: oriented to person, oriented to place and oriented to time Cranial nerves: Yes CN's II-XII intact bilaterally Psych: Appearance: grossly normal Thought process: Normal thought process present Insight: Good insight present (Psych) Judgement: Good judgement present (Psych) Course Course Level of Care: Express Care Visit Vital Signs Vital signs: Reviewed MDM - URI/Sore Throat MDM Narrative Medical decision making narrative: Patient with history of asthma presents with scattered expiratory wheezes. No distress. He did 4 days of prednisone with no relief. Start Medrol Dosepak to taper started azithromycin for added anti-inflammatory properties. He reports that he has plenty of albuterol at home Discharge instructions reviewed with patient, as well as provided in writing per nursing staff. The instructions also include specific and strict return/GO TO THE ER as well as f/u information. All questions have been answered, and the patient deny any further questions with discharge and discharge plan. Some parts of this dictation were generated by voice recognition software and may contain typographical and/or grammatical inaccuracies. Differential Diagnosis Differential diagnosis: Likely upper respiratory infection, otitis media, viral infection, influenza and pharyngitis Medical Records Attestation: I reviewed the patient's medical records. Discharge Plan Discharge Clinical Impression: Bronchitis, Elevated blood pressure reading Patient Disposition: Home, Self-Care Condition: Stable Instructions: Antibiotic Form Patient Language: Occitan Prescriptions: New methylprednisolone [Medrol (Bandar)] 4 mg tablets,dose pack See Rx Instructions .ROUTE .COMPLEX Qty: 21 0RF Rx Instructions: for 6 days azithromycin 250 mg tablet See Rx Instructions .ROUTE .COMPLEX Qty: 6 0RF Rx Instructions: For 250 mg dose pack: take 500 mg today (day 1), then 250 mg for 4 days (days 2-5) benzonatate 200 mg capsule 200 mg PO TID PRN (Reason: cough) Qty: 30 0RF No Action pantoprazole 40 mg tablet,delayed release (DR/EC) PO Follow-up/Referrals: Walker,AMERICA Gayle [Primary Care Provider] - 2 Weeks Time of Disposition: 16:07
[2024-09-01 15:45] VITALS: BP 157/97; PULSE 88; RESP 20; TEMP 37; O2SAT 98
[2024-09-01 16:00] VITALS: PULSE 88; RESP 20; O2SAT 98
== END 2024-09-01 16:14 | disposition home or self-care (01) ==
PROVIDERS: Emergency Provider Nurse Practitioner Family; PCP Physician Assistant
DX: J40 Bronchitis, not specified as acute or chronic (principal); R03.0 Elevated blood-pressure reading, without diagnosis of hypertension; K21.9 Gastro-esophageal reflux disease without esophagitis; J45.909 Unspecified asthma, uncomplicated; Z86.718 Personal history of other venous thrombosis and embolism; F17.210 Nicotine dependence, cigarettes, uncomplicated
CPT/HCPCS: 99213; G0463

== ENCOUNTER 2024-11-08 15:37 | Emergency (ER) | payer OTHER, SELFPAY ==
--- NOTE | 2024-11-08 15:40 | ED.URI ---
HPI - URI/Sore Throat General Chief Complaint: Upper Respiratory Infection Stated Complaint: throat swelling, knot Time Seen by Provider: 11/08/24 15:40 Source: patient Mode of arrival: ambulatory Limitations: no limitations History of Present Illness HPI Narrative: Stephen is a 29-year-old male patient presenting to the clinic today with complaints of sore throat/swelling with a knot times 2-3 days. He reports no fevers, chills, or any URI symptoms. Related Data Home Medications ?Medication ?Instructions ?Recorded ?Confirmed ?Last Taken ?Type pantoprazole 40 mg tablet,delayed mg PO 09/01/24 Unknown History release Allergies Allergy/AdvReac Type Severity Reaction Status Date / Time No Known Allergies Allergy Verified 11/08/24 15:40 Review of Systems Review of Systems: Pertinent positives per HPI. Patient denies any fever, chills, rash, headache, visual changes, dizziness, cough, shortness of breath, chest pain, palpitations, nausea, vomiting, diarrhea, constipation, abdominal pain, or any urinary issues. PMFSH Past Medical History Medical History GERD (gastroesophageal reflux disease) Portal vein thrombosis Back pain Esophageal ulcer Asthma Surgical History Surgical History No history of previous surgery Social History Social History Smoking packs per day: 0.5 Smoking cigarettes per day: 10.0 Smoking status: Current every day smoker Alcohol intake: unknown Substance use: unknown Living arrangements: with family Gender identity (if verbalized by the patient): Male Comments At the time of my signature, I reviewed and agree with the nursing past medical, surgical, social, and family history. There is no relevant family history pertinent to the patient complaint. Exam Narrative: General: Well-developed, well nourished, in no apparent distress Head: Normocephalic, atraumatic Eyes: Pupils equally round and reactive to light bilaterally, EOM intact, sclera and conjunctive clear, no discharge, lids normal Ears: TMs intact and clear, ear canals clear, no drainage, grossly hearing normal. Nose: Nares patent, no discharge, no inflammation, no sinus tenderness. Mouth: Oral pharynx red with bilateral tonsillar enlargement without lesions or masses, good dentition, MMM. Neck: Supple, trachea midline, no enlargement of anterior or posterior cervical nodes, no thyroid masses or goiter palpable. Cardio: Regular rate and rhythm, s1 and s2 normal, no murmur appreciated. Resp: Clear to auscultation bilaterally, no rhonchi, rales, wheezing or rubs Course Course Emergency Course: Portions of this record may have been created with voice recognition software. Level of Care: Express Care Visit Vital Signs Vital signs: Vital Signs Temperature 36.8 C 11/08/24 15:45 Pulse Rate 94 11/08/24 15:45 Respiratory Rate 20 11/08/24 15:45 Blood Pressure 139/88 11/08/24 15:45 Pulse Oximetry 98 11/08/24 15:45 Oxygen Delivery Room Air 11/08/24 15:45 Temperature 36.8 C 11/08/24 15:45 Pulse Rate 94 11/08/24 15:45 Respiratory Rate 20 11/08/24 15:45 Blood Pressure 139/88 11/08/24 15:45 Pulse Oximetry 98 11/08/24 15:45 Oxygen Delivery Room Air 11/08/24 15:45 Vital signs reviewed MDM - URI/Sore Throat MDM Narrative Medical decision making narrative: At the time of visit patient is resting comfortably on the exam table. Patient appears to be nontoxic. Labs: Strep test was performed and was negative in the clinic today. We will send strep for culture. Plan: I suspect patient has viral pharyngitis. Supportive measures were discussed with the patient and they voiced understanding discharge instructions and agrees to treatment plan. Return precautions reviewed Differential Diagnosis Differential diagnosis: Likely upper respiratory infection, otitis media, sinusitis, viral infection, bronchitis, influenza, pharyngitis and other (COVID) Discharge Plan Discharge Clinical Impression: Pharyngitis Qualifiers: Pharyngitis/tonsillitis etiology: unspecified etiology Qualified Code(s): J02.9 - Acute pharyngitis, unspecified Patient Disposition: Home Condition: Stable Instructions: Antibiotic Form, Pharyngitis (ED) Additional Instructions: Strep test was performed and was negative in the clinic today. We will send strep for culture. Increase fluids and stay well hydrated Tylenol/motrin for pain/fever Flonase and OTC antihistamines as directed Vicks vapor rub to open sinuses Sinus rinses for congestion Cepacol spray, cough drops, throat lozenges, warm tea with honey/lemon, gargle salt water to soothe throat BRAT diet for diarrhea Clear liquids x 24 hours then advance as tolerated for nausea/vomiting Go to the ED if you develop a worsening in your condition- high fever not controlled by Tylenol or Motrin, dehydration, weakness, lethargy, shortness of breath, or chest pain. Follow up with your PCP in 3-5 days if symptoms persist. Patient Language: Pakistani Prescriptions: No Action pantoprazole 40 mg tablet,delayed release (DR/EC) PO Follow-up/Referrals: Walker,AMERICA Gayle [Primary Care Provider] - Time of Disposition: 15:57 Quality NIHSS Nursing Documentation ED NIHSS nursing documentation: reviewed/agree
[2024-11-08 15:45] VITALS: BP 139/88; PULSE 94; RESP 20; TEMP 36.8; O2SAT 98
[2024-11-08 15:58] LABS: EDSTREPNEGPOS1 Negative (Negative)
== END 2024-11-08 16:00 | disposition home or self-care (01) ==
PROVIDERS: Emergency Provider Nurse Practitioner Family; PCP Physician Assistant
DX: J02.9 Acute pharyngitis, unspecified (principal); F17.210 Nicotine dependence, cigarettes, uncomplicated; K21.9 Gastro-esophageal reflux disease without esophagitis; J45.909 Unspecified asthma, uncomplicated; Z86.718 Personal history of other venous thrombosis and embolism
CPT/HCPCS: 87081; 87880; 99213; G0463

== ENCOUNTER 2024-12-16 14:00 | Outpatient (RCR) | payer OTHER, SELFPAY ==
--- NOTE | 2024-12-04 09:49 | OPREHPOC ---
Outpatient Therapy Plan of Care This is a Multidisciplinary Plan of Care that may contain components documented by all disciplines (PT, OT, and ST.) PT Problem 1 PT Problem #1 Knowledge Deficit PT Goal 1 Goal / Goal Update 1*independent with HEP 2* correct use of assistive device Target Visit 6 PT Problem 2 PT Problem #2 Pain PT Goal 1 Goal / Goal Update 1* pt report pain rating of L knee at worst of 6/ 10 2* pt able to tolerate standing and equal WB on LE 's Target Visit 6 PT Problem 3 PT Problem #3 Impaired Flexibility PT Goal 1 Goal / Goal Update *increase L knee flexion active ROM in sitting to 120' Target Visit 6 PT Problem 4 PT Problem #4 Impaired Strength PT Goal 1 Goal / Goal Update *increase strength of L knee, to improve stability to knee joint: gross strength of 4+/5 Target Visit 6
--- NOTE | 2024-12-04 09:49 | PTOPEVAL1 ---
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 He is using one crutch and knee brace for mobility. LE functional scale rating of 81% limitation in activity level. Sleeping is disrupted due to pain. 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 He is scheduled for an MRI on December 17. With the evaluation: pain over medial knee; pain is increased at end ranges of knee flexion and extension motions, with decreased flexion ROM; pain is increased with WB on L LE. Skilled PT services are indicated for treatment of L knee pain, possible meniscal tear: modalities to decrease pain and swelling, therapeutic exercises to increase knee strength and flexion ROM, with progression to lesser assistive device as able and education for HEP and pain control. Plan of Care Interventions Electrical Stimulation,Gait Training,Hot Pack/Cold Pack,Intermittent Compression Pump,Manual Therapy ,Neuro Re-education,Patient/Caregiver Education, Therapeutic Activities,Therapeutic Exercise, Ultrasound,Other Other Interventions taping PT Services Indicated Yes Treatment Frequency and 1-2x/wk for 6 visits Duration These treatments will address the objective and functional deficits as defined above. The patient will be advanced safely and appropriately in order for the patient to progress towards his/her prior level of function. Additional exercises will be introduced and as well as a comprehensive home exercise program upon discharge, if needed, ?to ensure carryover of functional gains achieved in the clinic. This treatment plan has been reviewed and agreement upon by the patient.
--- NOTE | 2024-12-09 09:14 | PCPTNOTE ---
Pt canceled due to in the family.
--- NOTE | 2024-12-25 08:49 | PTOPDC ---
Assessment and note entered by Domenica Antunez, PT Assessment Status Discharge - Pt Not Present ICD-10 Condition Codes (PT) Pain in left knee M25.562 Onset November 11, 2024 Subjective Information pt called and canceled all appointments, dr told him therapy would not help him. Assessment PT Clinical Summary Manuel has received 2 PT sessions, December 04 to December 16. He then called and canceled appointments. Discharge PT. The goals were not addressed. Plan of Care PT Services Indicated No
== END 2024-12-25 11:55 | disposition home or self-care (01) ==
LOC: ANHPT 14:00
PROVIDERS: PCP Physician Assistant; Visit Provider Physician Assistant
DX: M25.562 Pain in left knee (principal)
CPT/HCPCS: 97014; 97110; 97161; G0283

== ENCOUNTER 2024-12-17 08:59 | Outpatient (CLI) | payer OTHER, SELFPAY ==
--- NOTE | ~2024-12-17 | MR_ITS ---
MRI of the left knee Clinical history: Pain Technique: Coronal proton density and proton density-weighted images, sagittal proton-density and T2 fat-sat images, and axial proton-density fat-saturated images were acquired. Findings: Anterior and posterior cruciate ligaments are intact. Medial collateral ligament and the la teral collateral ligament complex are intact. Popliteus tendon is intact. Lateral meniscus intact. There is extensive horizontal tear through the posterior horn, body, and ant erior horn of the medial meniscus. Articular cartilage is well preserved in the lateral and patellofemoral compartment. There is focal m oderate chondral lesion at the medial joint line. Extensor mechanism is intact. Small joint effusion present. No Walker's cyst. Impression: Extensive horizontal tear of the anterior horn, body, and posterior horn of the medial meniscus. Small joint effusion. Reviewed, dictated and finalized at [facility]. Impression: Extensive horizontal tear of the anterior horn, body, and posterior horn of the medial meniscus. Small joint effusion.
--- OUTSIDE RECORDS SUMMARY | 2024-12-17 09:34 | XMS_ITS | Continuity of Care Document ---
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 [address] , [address], [place], [address], [place]. tel:[phone] Family History Family Member Type Diagnosis Age At Onset No Information Payers Payer name Insurance type Covered constitution party ID Authoriza tion(s) No Information Social History Type Description Quantity Date Captured Comments Sex Male Smoking Status No Information Chief Complaint And Reason For Visit No Information Reason For Referral Reason For Referral No Information History Of Present Illness Encounter Date Complaint History Of Prese nt Illness No Information Functional Status Date Functional Assessmen t No Information Instructions Date Instruction Additional Infor mation No Information Assessments Type Assessment Date No Information Patient Care Teams Name Effective Dates (start - stop) Status Members No Information
== END 2024-12-17 09:00 | disposition home or self-care (01) ==
LOC: ANHIMG 09:01
PROVIDERS: PCP Physician Assistant; Visit Provider Physician Assistant
DX: M25.462 Effusion, left knee (principal); S83.242A Other tear of medial meniscus, current injury, left knee, initial encounter; X58.XXXA Exposure to other specified factors, initial encounter
CPT/HCPCS: 73721

== ENCOUNTER 2025-05-17 18:59 | Emergency (ER) | payer OTHER, SELFPAY ==
--- NOTE | 2025-05-17 19:02 | ED.BACK ---
HPI - Back Pain/Injury General Chief Complaint: Back Pain/Injury Stated Complaint: Back Pain Time Seen by Provider: 05/17/25 19:23 Source: patient and RN notes reviewed Mode of arrival: ambulatory Limitations: no limitations History of Present Illness HPI Narrative: 30-year-old male presents with concern of for mid back pain. Reports he has epigastric pain that radiates to the mid back. He reports he has had this pain intermittently for some time but it has been constant for the last few days. He reports his a history of unrepaired hiatal hernia, he has a history of asthma. Reports he ate 11 tacos today in the epigastric pain worsens then. He reports pain is also worsened when he bends or stretches his arms behind his back. He takes hydrocodone and meloxicam daily he is also currently taking prednisone for a cough MD elicited complaint: back pain Related Data Home Medications ?Medication ?Instructions ?Recorded ?Confirmed ?Last Taken ?Type pantoprazole 40 mg tablet,delayed mg PO 09/01/24 Unknown History release hydrocodone 7.5 mg-acetaminophen tablet 05/17/25 Unknown History 325 mg tablet meloxicam 15 mg tablet mg 05/17/25 Unknown History methylprednisolone 4 mg tablets in mg 05/17/25 Unknown History a dose pack Allergies Allergy/AdvReac Type Severity Reaction Status Date / Time No Known Allergies Allergy Verified 05/17/25 19:29 Review of Systems Review of Systems: CONSTITUTIONAL: Denies malaise, chills, sweats, or fever. CARDIOVASCULAR: Denies chest pain, palpitations, or edema. RESPIRATORY: Denies cough or dyspnea. GASTROINTESTINAL: Reports epigastric pain. Denies nausea, vomiting, diarrhea, loss of bowel function GENITOURINARY: Denies dysuria, hematuria, frequency, loss of bladder function. SKIN: Denies rash or itching. MUSCULOSKELETAL: Reports mid back pain NEUROLOGIC: Denies numbness, weakness, or headache. All systems reviewed & are unremarkable except as noted in HPI and below PMFSH Past Medical History Medical History GERD (gastroesophageal reflux disease) Portal vein thrombosis Back pain Esophageal ulcer Asthma Surgical History Surgical History No history of previous surgery Social History Social History Smoking packs per day: 0.5 Smoking cigarettes per day: 10.0 Alcohol intake: unknown Substance use: unknown Living arrangements: with family Gender identity (if verbalized by the patient): Male Comments At time of signature, agree with nursing past medical, surgical, social and family history. There is no relevant family history pertinent to the presenting complaint Exam Narrative: GENERAL: Well-appearing, well-nourished, and in no acute distress. HEAD: Normocephalic, atraumatic. EYES: PERRLA and EOMI. NECK: Supple. No lymphadenopathy. CHEST: Clear to auscultation. No respiratory distress. HEART: Regular rate and rhythm. Distal pulses palpable and equal, cap refill <3 seconds ABDOMEN: Soft, epigastric tenderness, left lower quadrant tenderness, obese, normal active bowel sounds, no palpable or pulsatile masses. No CVA tenderness MUSCULOSKELETAL: Normal range of motion and strength in all extremities; 5/5 strength with hip flexion and extension, dorsiflexion and extension, knee flexion and extension, plantar flexion and extension. Normal sensation in dermatomal distributions with sensitivity to light touch and pain. Mild thoracic midline back tenderness to palpation. No paraspinal tenderness. Transfers from lying to sitting to standing. SKIN: Warm, dry, no rash. No ecchymosis, erythema, open wounds to back. NEURO: No focal deficits. Alert and oriented x3. Reflexes intact. Normal gait. PSYCH: Normal mood and affect Course Course Emergency Course: Patient was given GI cocktail. Patient reports no improvement with symptoms with a GI cocktail. EKG is normal. I discussed into the emergency room for further evaluation with this patient, that was my advice to him. He reports he does not want to go to the emergency room. I discussed risks versus benefits, and he verbalizes understanding. He says he will go to the emergency room tomorrow. I advised him to go to the emergency room I away the symptoms worsen. Anticipatory guidance given. Patient agrees to follow-up as directed and is aware of reasons to seek care at the emergency department. Portions of this record may have been created with voice recognition software Level of Care: Express Care Visit Reevaluation(s) Reevaluation #1: Patient reports no improvement from GI cocktail Date: 05/17/25 Time: 19:55 Vital Signs Vital signs: Reviewed. MDM - Back Pain/Injury MDM Narrative Medical decision making narrative: I evaluated this in the [facility] care. History is obtained from patient who is an independent historian and physical exam was performed.? Available medical records were reviewed. ? Exam findings and relevant testing show no acute concerns or changes; patient is non-toxic appearing and is in no distress. Differential Diagnosis Differential diagnosis: Likely renal colic, pyelonephritis, thoracic back pain, AAA and other (GERD, ulcer, cholecystitis, cardiac abnormality) ECG Data EKG #1: ECG completion date: 05/17/25 ECG completion time: 20:00 Prior ECG tracings: available for review Interpretation: Rate 70, NE interval 144, QRS duration 97, QT 366, QTC 387 EKG Interpretation: normal rate and sinus rhythm Critical Care Time Critical Care Time Critical Care Time: No Discharge Plan Discharge Clinical Impression: Acute epigastric pain Patient Disposition: Home Condition: Stable Instructions: Epigastric Pain (ED) Additional Instructions: Please go to the emergency room at earliest convenience for further evaluation of your symptoms. If your symptoms worsen or change you should go to the emergency room right away. Continue to take your home medications as usual. Patient Language: Icelandic Prescriptions: No Action pantoprazole 40 mg tablet,delayed release (DR/EC) PO meloxicam 15 mg tablet hydrocodone-acetaminophen 7.5-325 mg tablet methylprednisolone 4 mg tablets,dose pack Follow-up/Referrals: Librado,Stephen Gutierrez APRN [Non-Staff, Unknown] Time of Disposition: 19:58
[2025-05-17 19:08] VITALS: BP 141/82; PULSE 86; RESP 18; TEMP 36.4; O2SAT 100
[2025-05-17] MEDS: MAG HYDROX/AL HYDROX/SIMETH 30 ML UDC 15 ML PO (19:44)
[2025-05-17] MEDS: LIDOCAINE 2% VISC SOLN 15 ML UDC PO (19:45)
--- NOTE | 2025-05-17 19:50 | ECG_ITS ---
Test Date: 2025-05-17 20:00:02 Measurements Intervals [place] Rate: 70 P: 30 NC: 144 QRS: 68 QRSD: 97 T: 68 QT: 366 QTc: 396 Interpretive Statements SINUS RHYTHM No previous ECG available for comparison Electronically Signed On 05-18-2025 18:24:02 NAUMKE[employer] OPERATOR by Selvin Bonilla M.D.
== END 2025-05-17 20:00 | disposition home or self-care (01) ==
PROVIDERS: Emergency Provider Nurse Practitioner; PCP Physician Assistant
DX: R10.13 Epigastric pain (principal); F17.210 Nicotine dependence, cigarettes, uncomplicated; K21.9 Gastro-esophageal reflux disease without esophagitis; J45.909 Unspecified asthma, uncomplicated; Z86.718 Personal history of other venous thrombosis and embolism
CPT/HCPCS: 93005; 99213; A9270; G0463

== ENCOUNTER 2025-06-06 16:10 | Emergency (ER) | payer OTHER, SELFPAY ==
--- NOTE | ~2025-06-06 | XR_ITS ---
EXAMINATION: XR chest 2V, 06/06/2025 17:18 [facility]ANITOR [facility] HISTORY: hemotypsis x 1wk COMPARISON: No comparisons available. Technique: 2 views obtained. Findings: The lungs are clear, no effusion. No pneumothorax. Heart is normal size. Mediastinal and hilar contours are within normal limits. Bony thorax no acute abnormality. Impression: No acute cardiopulmonary abnormality. Reviewed, dictated and finalized at location P. TOR HEAD Impression: No acute cardiopulmonary abnormality.
--- NOTE | ~2025-06-06 | CT_ITS ---
EXAMINATION: CT diagnostic chest w con, 06/06/2025 18:30 HEALTH SERVICES RN HISTORY: hemoptysis, chest tightness COMPARISON: No comparisons available. TECHNIQUE: CT scan of the chest was performed with contrast. Isovue 300, 92cc injected IV. One or more of the following dose reduction techniques were used: automated exposure control, adjustment of the mA and/or kV according to patient size, use of iterative reconstruction technique. FINDINGS: No significant coronary calcification is present ([id number]) LUNGS: Clear without consolidation, effusion, or pneumothorax. HEART AND PERICARDIUM: Within normal limits. AORTA: Normal caliber aorta. ADENOPATHY/MEDIASTINUM: None. LIMITED VIEWS OF THE ABDOMEN: Thickening of the esophagus may represent mild esophagitis. Small hiatal hernia noted. OSSEOUS STRUCTURES: No acute osseous abnormality.No suspicious lesions. OVERLYING SOFT TISSUES: Unremarkable. THYROID: The thyroid is unremarkable. IMPRESSION: 1. No etiology identified to explain the patient's symptoms. Follow up suggested if symptoms persist. Reviewed, dictated and finalized at location P. TH SERVICES RN IMPRESSION: 1. No etiology identified to explain the patient's symptoms. Follow up suggeste d if symptoms persist.
[2025-06-06 16:15] VITALS: BP 149/78; PULSE 73; RESP 18; TEMP 36.4; O2SAT 98
[2025-06-06 16:25] VITALS: RESP 20
--- OUTSIDE RECORDS SUMMARY | 2025-06-06 17:00 | XMS_ITS | Continuity of Care Document ---
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 PSG is medically necessary to determine the management of sleep apnea. We discussed with the patient the impact of weight on: Sleep disordered breathing Hypertension Hypertriglycerid emia PASCALE We discussed with the patient the benefit of PAP therapy on: Sleep disordered breathing Rhinitis Hypertension PASCALE Educated the patient on sleep hygiene measures. Relaxing rituals to rest easy, understanding foods with positive and negative impact on sleep, creating a peaceful sleep environment, timing of exercise, using herbal sleep aids, and practicing sleep-friendly meditation were covered. To determine how much sleep is needed, the patient will assess where he falls on the spectrum, examine what lifestyle factors such as work schedules and stress are affecting the quality and quantity of sleep. In general, adults need 7-9 hours of sleep. Educated the patient regarding foods that promote sleep. These include but are not limited to cherries, bananas, toast, oatmeal, and warm milk. Educated the patient regarding foods and drinks to avoid before bedtime. These include but are not limited to aged cheese, chocolate, spicy foods, tomato-based sauces, soy, ginseng tea and processed meat. Advocated influenza vaccination annually and pneumonia vaccination in 2043. Advocated weight loss through diet and exercise. Patient's ideal body weight according to height and gender is up to 165 lbs. Encouraged patient to adjust caloric intake to maintain/achieve ideal body weight, emphasizing on fruits, vegetables, whole grains, and fat-free or low-fat products. These include lean meats, poultry, fish, beans, eggs, and nuts and foods that are low in saturated fats, trans-fats, cholesterol, salt (sodium), and glycemic index. Stressed the importance of regular exercise up to the patient's capacity limits. In this case, we recommend 20 min daily walking, 2 days a week of resistance training. Patient to monitor BP daily and bring records to PCP for further management. Follow-up: 1 week after titration sleep study [email or web address] Not available 05/07/2025 11:23:53 Plan of Treatment Reminders Order Date Submit Date Provider Last Modified By Organization Details Last Modified Time Details Appointments Follow Up 2024 09:30A Vicki Lima MD Not available Not available Not available Lab None recorded. Referral None recorded. Procedures None recorded. Surgeries None recorded. Imaging polysomno gram, titration study 2024 025 [facility] ([facility]), [address] [place], [address], 06/03/2025 13:41:50 Medication Orders None recorded. Patient TargetsNo targets recorded. Patient InstructionsNo instructions recorded. Reason for Referral None Reported. Results Created Date Observation Date Name Description Value Unit Range Abnormal Flag Note LastModifiedBy Organization Detail LastModifiedTime 04/08/2004/03/2025 home sleep study No observ ation record ed. BARCODE Not Available 2024 17:17:15 06/03/2006/01/2025 polys omnog chelsea, titra tion study No observ ation record ed. [facility] ([facility]) [address] [place], [address], 06/03/2025 13:41:50 Result Notes None recorded. Problems Name Problem SNOMED Code Status Onset Date Resolution Date Notes Provider Name and Address Organization Details Recorded Time Obstructive sleep apnea syndrome 24219617 Active 025 Yovany Lima MD [address] [facility], [facility] [address], [place], [address] , [facility] [employer] 11:09:18 Notes:Medical History: Rhini tis Obesity with mod OSAHS, AHI = 19, 04/03/25 Hypertension Hypertriglyceridemia PASCALE Right 2nd/3rd fingers phalangeal fracture Procedure History: Right wrist arthroscopy 2017 Right 2nd/3rd finger surgery 2019 Left partial meniscectomy 2024 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 Medical Equipment None Reported. Allergies No known drug allergies Medications Name Sig Start Date Stop Date Status Note LastModified by Organization Details LastModified Time prednisone 10 mg tablet TK 3 TS PO BID 04/07 completed Not Available Not Available Not Available ipratropium 0.5 mg-albutero l 3 mg (2.5 mg base)/3 mL nebulizatio n soln USE 1 VIAL VIA NEBULIZER EVERY 6 HOURS NEEDED active Not Available Not Available No t Available azithromyci n 250 mg tablet TAKE 2 TABLETS BY MOUTH FOR 1 DAY THEN TAKE 1 TABLET BY MOUTH DAILY FOR 4 DAYS 05/07 completed Not Available Not Available Not Available ibuprofen 800 mg tablet TAKE 1 TABLET BY MOUTH THREE TIMES DAILY WITH MEALS FOR 14 DAYS 05/07 completed Not Available Not Available Not Available benzonatate 200 mg capsule TAKE 1 CAPSULE BY MOUTH THREE TIMES DAILY NEEDED FOR COUGH 05/07 completed Not Available Not Available Not Available hydrocodone 5 mg-acetamin ophen 325 mg tablet TAKE 1 TABLET BY MOUTH TWICE DAILY FOR 15 DAYS NEEDED FOR SEVERE KNEE PAIN active Not Available Not Available No t Available meloxicam 15 mg tablet TAKE 1 TABLET BY MOUTH EVERY DAY active Not Available Not Available No t Available prednisone 20 mg tablet TAKE 2 TABLETS BY MOUTH DAILY FOR 5 DAYS active Not Available Not Available No t Available diphenoxyla te-atropine 2.5 mg-0.025 mg tablet TAKE 1 TABLET BY MOUTH EVERY 6 HOURS NEEDED 05/07 completed Not Available Not Available Not Available sulfamethox azole 800 mg-trimetho prim 160 mg tablet TK 1 T PO Q 12 H 04/07 completed Not Available Not Available Not Available doxycycline monohydrate 100 mg tablet TK 1 T PO BID FOR 7 DAYS 04/07 completed Not Available Not Available Not Available tramadol 50 mg tablet TAKE 1 TABLET BY MOUTH TWICE DAILY NEEDED FOR SEVERE PAIN active Not Available Not Available No t Available oxycodone-a cetaminophe n 5 mg-325 mg tablet TK 1 T PO Q 6 H PRF PAIN 04/07 completed Not Available Not Available Not Available baclofen 10 mg tablet TAKE 1 TABLET BY MOUTH THREE TIMES DAILY FOR 5 DAYS 05/07 completed Not Available Not Available Not Available benzonatate 100 mg capsule TK 1 C PO TID PRF COUGH 04/07 completed Not Available Not Available Not Available hydrocodone 7.5 mg-acetamin ophen 325 mg tablet TAKE 1 TABLET BY MOUTH EVERY 4 TO 6 HOURS NEEDED FOR PAIN active Not Available Not Available No t Available cephalexin 500 mg capsule TK ONE C PO QID FOR 3 DAYS 04/07 completed Not Available Not Available Not Available lisinopril 10 mg tablet Take 1 tablet every day by oral route. active Not Available Not Available No t Available oxycodone 5 mg capsule Take 1 capsule every 6 hours by oral route. 04/07 completed Not Available Not Available Not Available lidocaine HCl 2 % mucosal solution SWISH AND SPIT 15 ML BY MOUTH EVERY 3 HOURS NEEDED FOR THROAT PAIN 05/07 completed Not Available Not Available Not Available montelukast 10 mg tablet TK 1 T PO HS 05/07 completed Not Available Not Available Not Available ibuprofen 600 mg tablet TK 1 T PO Q 6 H PRF PAIN 04/07 completed Not Available Not Available Not Available oxycodone-a cetaminophe n 7.5 mg-325 mg tablet TK 1 T PO Q 6 H 05/07 completed Not Available Not Available Not Available methylpredn isolone 4 mg tablets in a dose pack FOLLOW PACKAGE DIRECTION S 05/07 completed Not Available Not Available Not Available albuterol sulfate HFA 90 mcg/actuati on aerosol inhaler INHALE 2 PUFFS PO QID FOR WHEEZING AND SOB active Not Available Not Available No t Available ondansetron 4 mg disintegrat ing tablet DISSOLVE 1 TABLET ON THE TONGUE EVERY 6 HOURS FOR 5 DAYS NEEDED 05/07 completed Not Available Not Available Not Available fluticasone propionate 50 mcg/actuati on nasal spray,suspe nsion SHAKE LIQUID AND USE 1 SPRAY IN EACH NOSTRIL EVERY DAY DIRECTED 05/07 completed Not Available Not Available Not Available Ambien 5 mg tablet Take 1 tablet as needed by oral route at bedtime. 05/07 completed Not Available Not Available Not Available Symbicort 160 mcg-4.5 mcg/actuati on HFA aerosol inhaler INL 2 PFS PO BID 05/07 completed Not Available Not Available Not Available Prilosec 10 mg oral suspension, delayed release Take 2 packets every day by oral route. active Not Available Not Available No t Available Vitals Date Recorded Heart rate Respiratory rate Provider N tamiko and Address Organization Details Last Updated DateTime 05/07/2025 88 /min 16 /min Yovany Lima MD [address] [facility] [address], [address], [employer] 05/07/2025 11:05:42 Date Recorded Body weight Body mass index (BMI) Body height Body temperature Heart rate Oxygen saturation Systolic And Diastolic Provider Name and Address Organization Details Last Updated DateTime 00959.8 1 g 31.8 kg/m2 172.72 cm 98.3 [degF] 88 /min 96 % 124/82 mm[Hg] Ree Alva MA [employer] 10:51:24 Social History Question Answer Notes LastModified by Organizat ion Details LastModified Time Tobacco Smoking Status Former Smoker quit 2025 Ree Alva MA null, [employer] 05/07/2025 10:48:27 What Is Your Level Of Caffeine Consumption? Moderate Information not available 05/07/2025 In The 14 Days Before Symptom Onset, Have You Had Close Contact With A Laboratory-confir med COVID-19 While That Case Was Ill? No Information not available 05/07/2025 In The 14 Days Before Symptom Onset, Have You Had Close Contact With A Person Who Is Under Investigation For COVID-19 While That Person Was Ill? No Information not available 05/07/2025 What Type Of Diet Are You Following? REGULAR Information not available 05/07/2025 Which Illicit Or Recreational Drugs Have You Used? Occasional Marijuana Information not available 05/07/2025 Do You Have An Electrostatic Air Filter? No Information not available 05/07/2025 When Did You Quit Smoking? 1-5yearssincel marcelo Information not available 05/07/2025 Do You Have A Humidifier? No Information not available 05/07/2025 Do You Have Moisture Problems In Your Home? No Information not available 05/07/2025 What Was The Date Of Your Most Recent Tobacco Screening? 05/07/2025 Information not available 05/07/2025 Do You Have Any Pets? Yes Information not available 05/07/2025 Do You Use Your Seat Belt Or Car Seat Routinely? Yes Information not available 05/07/2025 Do You Have Smoke And Carbon Monoxide Detectors In Your Home? Yes Information not available 05/07/2025 Are You Passively Exposed To Smoke? No Information no t available 05/07/2025 Do You Use Sunscreen Routinely? No Information not available 05/07/2025 Have You Recently Traveled Abroad? No Information not available 05/07/2025 Do You Have Any Dietary Restrictions? No Information not available 05/07/2025 Sex: Unknown Functional Status Question Answer Note LastModified by Organizat ion Details LastModified Time Do you use any illicit or recreational drugs? Yes Information not available 05/07/2025 Do you or have you ever used any other forms of tobacco or nicotine? No Information not available 05/07/2025 What is your level of alcohol consumption? None Information not available 05/07/2025 Are you currently employed? Yes Information not available 05/07/2025 Have you been exposed to chemicals or toxins? Yes Information not available 05/07/2025 Mental Status Question Answer Note LastModified by Organization D etails LastModified Time Do you feel stressed (tense, restless, nervous, or anxious, or unable to sleep at night)? [id number] Information not available 05/07/2025 Family History Relationship Description Onset Age of this Age Resolved Age Notes LastModified by Organization Details LastModified Time Mother Malignant neoplasm of breast [email or web address] Not available 2024 13:35:15 Father Hypertensive disorder [email or web address] Not available 2024 13:35:22 Father Obstructive sleep apnea syndrome [email or web address] Not available 2024 11:14:17 Paternal Grandfather Obstructive sleep apnea syndrome [email or web address] Not available 2024 11:14:23 Paternal Aunt Obstructive sleep apnea syndrome [email or web address] Not available 2024 11:14:27 Maternal Grandfather Leukemia [email or web address] Not available 05/07 11:15:08 Maternal Grandfather Malignant melanoma [email or web address] Not available 2024 11:15:18 Medical History No medical history recorded. Past Encounters Encounter ID Performer Location Encounter Start Date Encounter Closed Date Diagnosis/Indication Diagnosis SNOMED-CT Code Diagnosis ICD10 Code Diagnosis IMO Codes Diagnosis Note [id number] Yovany Lima MD [facility] [address] [address] 05/07/2025 10:18:06 05/11/2025 12:17:04 Obstructive sleep apnea syndrome 38888653 G47.33 G47.30 R06.89 G47.61 R06.81 [id number] Health Concerns Section Related Observation LastModified by Organization Detai ls LastModified Time None Recorded Concern Status LastModified by Organization Details LastModified Time None Recorded Payers Encounter Date Sequence Insurance Name Policy Number Policy Villalta Covered Member ID Villalta Member ID Guarantor Name 05/07/2025 1 [facility] ON OR AFTER 01/06/21 (MEDICAID REPLACEMENT - HMO) Manuel Ellington [id number] Manuel Ellington Notes Date Note Type Note Provider Name and Address Organization Details Recorded Time 05/07/2025 text/html Primary care/Referring provider: Nalini Cardoso PA-C During the [facility] home sleep study on 04/03/25, AHI = 19, supine AHI = 28. At home, the patient sleeps from 11 pm to 7 am and wakes up without an alarm. Snoring: heavy, since . Snorting: no Choking: yes Coughing: yes Gasping: yes Gagging: no Sighing: no Witnessed apnea: yes Twitching or jerking of leg(s), arm(s), body, head: yes Teeth grinding: no Teeth clenching: no Sleeptalking: no Sleepwalking: no Sleep crying: no Bedwetting: no Tongue/lip/gum/brittany k biting: no Sleeping with open mouth: yes Sleep paralysis: no Hypnagogic hallucinations: no Hypnopompic hallucinations: no Vivid dreams: no Difficulty with sleep onset: no Difficulty with sleep maintenance: yes Sleep interruptions: nocturia x 1, choking Patient wakes up with: fatigue, xerostomia, sore throat, mobility impairment Daytime cataplexy: no Morning hypersomnolence: yes Afternoon hypersomnolence: yes Caffeine sources in diet: coffee 1 cup per day, soda 1.5 can per day, chocolate 1/2 candy bar per week, energy drink 1/3 can of Red Bull per day Associated medical and psychiatric conditions: Congestive heart failure: no Coronary artery disease: no Myocardial infarction: no Hypertension: yes Stroke: no Bronchial asthma: no Chronic obstructive pulmonary disease: no Depression: no Bipolar disorder: no Anxiety: no Panic disorder: no Posttraumatic stress disorder: no Attention deficit and hyperactivity disorder: no Obsessive Compulsive disorder: no Schizophrenia: no Schizoaffective disorder: no Personality disorder: no Chronic analgesic use: yes hydrocodone Chronic sedative/hypnotic use: no EPWORTH SLEEPINESS SCALE (ESS) CHANCE OF DOZING SCORE 0 = would never doze 1 = slight chance of dozing 2 = moderate chance of dozing 3 = high chance of dozing SITUATION AND CHANCE OF DOZING Sitting and reading - 3 Watching television - 3 Sitting inactive in a public place (e.g. a theater or meeting) - 3 As a passenger in a car for an hour without a break - 2 Lying down to rest in the afternoon when circumstances permit - 3 Sitting and talking to someone - 1 Sitting quietly after lunch without alcohol - 3 In a car, while stopped for a few minutes in the traffic - 0 TOTAL SCORE 18 Subjectively, patient has a high chance of dozing. Yovany Lima MD [address] [facility], [facility] [address], [place], [address], [place] [facility] [employer] 05/07/2025 11:27:28
--- OUTSIDE RECORDS SUMMARY | 2025-06-06 17:00 | XMS_ITS | Clinical Summary ---
Author Organization [facility] Incentive Targeting Address [address] 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 This disclosure is being madepursuant to the Care Everywhere program and may not contain all information available regarding this patient. Last updated 18.[facility] Medications * Be aware that medications may not be up to date on this document. Alwaysverify current medications with the patient. omeprazole EC (PRILOSEC OTC) 20 MG tablet Take 1 Tab by mouth 2 times daily before meals. MUST BE SEEN BEFORE FURTHER REFILLS GIVEN 60 Tab 0 10/17/2010 Active Social History Tobacco Use Types Packs/Day Years Used Date Smoking Tobacco: Never Assessed Sex and Gender Information Value Date Recorded Sex Assigned at Not on file Legal Sex Male 5:36 AM [employer]ARD [employer] Gender Identity Not on file Sexual Orientation Not on file Last Filed Vital Signs Vital Sign Reading Time Taken Comments Blood Pressure 159/90 07/19/2013 6:17 AM [employer]YARD LAB[employer] Pulse 79 07/19/2013 6:17 AM [employer]YARD LAB[employer]ER Temperature 36.7 C (98.1 F) 07/19/2013 6:17 AM [employer]IPYARD LABORER Respiratory Rate 19 07/19/2013 6:17 AM SHIPYARD LABORER Oxygen Saturation 99% 07/19/2013 6:17 AM SHIPYARD LABORER Inhaled Oxygen Concentration - - Weight 77.1 kg (170 lb) 07/19/2013 6:17 AM SHIPYARD LABORER Height 170.2 cm (5' 7) 07/19/2013 6:17 AM SHIPYARD LABORER Body Mass Index 26.63 07/19/2013 6:17 AM SHIPYARD LABORER Plan of Treatment Health Maintenance Due Date Last Done Comments HIV SCREENING 2009 HEPATITIS C SCREENING 04/02/2012 DTAP/TDAP/TD VACCINES (1 - Tdap) 2013 HEPATITIS B VACCINE (1 of 3 - 19+ 3-dose series) 2013 HPV VACCINE (1 - 3-dose SCDM series) 2021 DEPRESSION SCREENING 07/09/2024 COVID-19 VACCINE (1 - 2024-2 6 season) 2025 INFLUENZA VACCINE (#1) 2025 ZOSTER VACCINE (1 of 2) 2044 HIB VACCINE Aged Out No longer eligi ble based on patient's age to complete this topic MENINGOCOCCAL (Group B) VACC INE SHARED DECISION-MAKING Aged Out No longer eligibl e based on patient's age to complete this topic MENINGOCOCCAL GROUPS A/C/Y/W VACCINE Aged Out No longer eligible b ased on patient's age to complete this topic PNEUMOCOCCAL VACCINE Aged Out No long er eligible based on patient's age to complete this topic
--- OUTSIDE RECORDS SUMMARY | 2025-06-06 17:01 | XMS_ITS | Clinical Summary ---
Author Organization 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 05/15/20 23 Active albuterol (PROVENTIL) (2.5 MG/3ML) 0.083% nebulizer solution Take 3 mLs by nebulization 4 (four) times daily. 06/21/20 22 Active omeprazole (PRILOSEC) 40 MG capsule Take 1 capsule (40 mg total) by mouth daily. 05/15/20 23 Active fluticasone propionate (FLONASE) 50 MCG/ACT nasal spray 2 sprays by Nasal route 2 (two) times daily. 16 g 07/05/20 24 Active Additional Information Patient not taking.Reported on 05/13/2025 loratadine (CLARITIN) 10 MG tablet Take 1 tablet (10 mg total) by mouth daily. 20 tablet 07/05/20 24 Active Additional Information Patient not taking.Reported on 05/13/2025 traMADol (ULTRAM) 50 MG tabletIndicati ons:Acute Pain < 7 Day Supply Take 1 tablet (50 mg total) by mouth every 8 (eight) hours as needed for Pain. Indications: Acute Pain < 7 Day Supply 15 tablet 01/26/20 25 Active Additional Information Patient not taking.Reported on 05/13/2025 azithromycin (ZITHROMAX) 250 MG tablet Take 2 tablets by mouth on day one then 1 daily for four days. 6 tablet 03/06/20 Active Additional Information Patient not taking.Reported on 05/13/2025 meloxicam (MOBIC) 15 MG tablet Take 1 tablet (15 mg total) by mouth daily. Active HYDROcodone-ac etaminophen (NORCO) 7.5-325 MG tablet Take 1 tablet by mouth every 4 (four) hours as needed. Active ipratropium-al buterol (DUONEB) 0.5-2.5 (3) MG/3ML Solution Take 3 mLs by nebulization every 6 (six) hours as needed. 360 mL 05/13/20 Active predniSONE (DELTASONE) 20 MG tablet Take 2 tablets (40 mg total) by mouth daily for 3 days, THEN 1 tablet (20 mg total) daily for 3 days. 9 tablet 05/13/20 Discontinued ipratropium-al buterol (DUONEB) 0.5-2.5 (3) MG/3ML Solution Take 3 mLs by nebulization every 6 (six) hours as needed. 360 mL 05/13/20 025 Discontinued predniSONE (DELTASONE) 20 MG tablet Take 2 tablets (40 mg total) by mouth daily for 3 days, THEN 1 tablet (20 mg total) daily for 3 days. 9 tablet 05/13/20 Encounters Date Type Department Care Team Description 05/20/2025 7:47 PM [facility] - 05/20/2025 10:18 PM [facility] Emergency [facility] Emergency Room [address] [place] [id number] Lukas Foster DO Chest Pain; Back Pain Discharge Disposition: Home or Self Care (Routine Discharge) 05/20/2025 Travel 05/13/2025 7:59 PM [facility] - 05/13/2025 10:12 PM [facility] Emergency [facility] Emergency Room [address] [place] [id number] Lukas Foster DO Shortness Of Breath Discharge Disposition: Home or Self Care (Routine Discharge) 05/13/2025 Travel 03/06/2025 7:13 PM CDT - 03/06/2025 9:[address] [facility] Emergency Room [address] [place] [address] Sunil Ivey MD URI Discharge Disposition: Home or Self Care (Routine Discharge) 03/06/2025 Travel from Last 3 Months Family History Medical History Relation Comments Breast Cancer Mother LATE 'S Breast Cancer Paternal Grandmother UNSURE OF A GE Relation Status Comments Mother Paternal Grandmother Social History Tobacco Use Types Packs/Day Years Used Date Smoking Tobacco: Former Cigarettes Tobacco Cessation:Counseling Given: Not Answered Alcohol Use Standard Drinks/Week Comments Not Currently 0 (1 standard drink = 0.6 oz pur e alcohol) Sex and Gender Information Value Date Recorded Sex Assigned at Male 08/28/2024 7:50 PM [facility] Legal Sex Male 11:14 AM CDT Gender Identity Male 05/13/2025 8:16 PM [facility] Sexual Orientation Not on file Last Filed Vital Signs Vital Sign Reading Time Taken Comments Blood Pressure 138/62 05/20/2025 10:00 PM [facility] Pulse 81 05/20/2025 10:00 PM [facility] Temperature 36.6 C (97.8 F) 05/20/2025 10:00 PM [facility] Respiratory Rate 19 05/20/2025 10:0 0 PM [facility] Oxygen Saturation 93% 05/20/2025 10: 00 PM [facility] Inhaled Oxygen Concentration - - Weight 94.8 kg (208 lb 14.4 oz) 05/20/2025 7:53 PM [facility] Height 172.7 cm (5' 8) 05/20/2025 7:53 PM [facility] Body Mass Index 31.76 05/20/2025 7:53 PM [facility] Plan of Treatment Health Maintenance Due Date Last Done Comments Annual Physical 1997 Hepatitis C 2012 Pneumococcal Vaccine: Pediatrics (0 to 5 Years) and At-Risk Patients (6 to 49 Years) (1 of 2 - PCV) 2013 HPV Vaccines (1 - 3-dose SCDM series) 2021 COVID-19 Vaccine (1 - 2024- season) 2025 Influenza Adult (#1) 2025 DTaP, Tdap and Td Vaccines (7 - Td or Tdap) 11/03/2026 11/03/2016, 12/25/2007, 01/08/1996, Additional history exists Hepatitis B Vaccines Completed 02/22/1995, 1994, 1994 Hepatitis A Vaccines Completed 09/09/2007, 01/04/20 05 Meningococcal Vaccine Aged Out 12/03/2008 No amado shannan eligible based on patient's age to complete this topic Meningococcal B Vaccine Aged Out No l onger eligible based on patient's age to complete this topic RSV Immunizations Under 20 Months Aged Out No longer eligible based on patient's age to complete this topic Procedures Procedure Name Priority Date/Time Associated Diagnosis Comments XR CHEST PORTABLE STAT 05/20/2025 8:1 6 PM [facility] LIPASE Routine 05/20/2025 7:58 PM [facility] MAGNESIUM STAT 05/20/2025 7:58 PM [facility] TROPONIN, QUANT STAT 05/20/2025 7:58 PM [facility] COMPREHENSIVE METABOLIC PANEL STAT 05/20/2025 7:58 PM [facility] HC CBC AUTO W/AUTO DIFF STAT 05/20/2025 7:58 PM [facility] ECG 12-LEAD Routine 05/20/2025 7:55 PM [facility] XR CHEST PA+LAT STAT 05/13/2025 8:57 PM [facility] RESP SYNCYTIAL VIRUS STAT 05/13/2025 8:17 PM [facility] INFLUENZA A & B STAT 05/13/2025 8:17 PM [facility] CORONAVIRUS (COVID 19) STAT 8:17 PM [facility] TSH W/REFLEX STAT 05/13/2025 8:17 PM [facility] TROPONIN, QUANT STAT 05/13/2025 8:17 PM [facility] PRO-BRAIN NATRIURETIC PEPTIDE STAT 05/13/2025 8:17 PM [facility] COMPREHENSIVE METABOLIC PANEL STAT 05/13/2025 8:17 PM [facility] CBC W/DIFF AUTOMATED STAT 05/13/2025 8:17 PM [facility] XR CHEST PA+LAT STAT 03/06/2025 7:47 PM CDT from Last 3 Months Results * XR CHEST PORTABLE (05/20/2025 8:16 PM [facility]) Anatomical Region Laterality Modality Chest Radiographic Destiny ging 05/20/2025 8:18 PM [facility] Impressions 05/20/2025 8:18 PM [facility] Impression: No acute findings. Referred By: Interpreted By: Guillermo Corona MD, 05/20/2025 8:18 PM Narrative 05/20/2025 8:18 PM [facility] [address] [place] [address] Examination: Chest 1 view portable History: Chest pain DATE/TIME: 05/20/2025 8:08 PM Comparison: 05/13/2025 Technique: AP upright portable view of the chest was obtained. Findings: Heart size, mediastinal contours and pulmonary vasculature are within normal limits. No pulmonary consolidation, pleural effusion or pneumothorax. No acute osseous abnormality. Procedure Note Guillermo Corona MD - 05/20/2025 [place] [id number] [facility] [place] [address] Examination: Chest 1 view portable History: Chest pain DATE/TIME: 05/20/2025 8:08 PM Comparison: 05/13/2025 Technique: AP upright portable view of the chest was obtained. Findings: Heart size, mediastinal contours and pulmonary vasculature arewithin normal limits. No pulmonary consolidation, pleural effusion orpneumothorax. No acute osseous abnormality. Impression: No acute findings. Referred By: Interpreted By: Guillermo Corona MD, 05/20/2025 8:18 PM us Lukas Foster DO GENERAL IMAGING Final Result * TROPONIN, QUANT (05/20/2025 7:58 PM [facility]) Pathologist [facility] TROPONIN I HIGH SENSITIVITY 4 0 - 75 ng/L 05/20/2025 8:23 PM [facility] Comment: HIGH DOSES OF BIOTIN, TROPONIN-SPECIFIC AUTOANTIBODIES, AND ANTIBODY THERAPY CONTAINING HAMA MAY INTERFERE WITH THIS TEST RESULT. CORRELATION TO CLINICAL HISTORY AND PRESENTATION RECOMMENDED. BLOOD VENOUS BLOOD SPECIMEN / Unknown 05/20/2025 7:58 PM [facility] us Lukas Foster DO LABORATORY Final Result Performing Organization Address [facility] Co de Phone Number [facility] [address] [place] [address], * MAGNESIUM (05/20/2025 7:58 PM [facility]) [facility] MAGNESIUM 2.0 1.8 - 2.4 MG/DL 05/20/2025 8:26 PM [facility] BLOOD VENOUS BLOOD SPECIMEN / Unknown 05/20/2025 7:58 PM [facility] us Lukas Foster DO LABORATORY Final Result Performing Organization Address City/[facility]/ZIP Co de Phone Number [facility] [address] [place] [address], [place] [phone] * LIPASE (05/20/2025 7:58 PM [facility]) Pathologist [facility] LIPASE 35 16 - 77 UNITS/L 05/20/2025 8:40 PM [facility] BLOOD VENOUS BLOOD SPECIMEN / Unknown 05/20/2025 7:58 PM [facility] us Lukas Foster DO LABORATORY Final Result [facility] [address] [place] [address], * (ABNORMAL) COMPREHENSIVE METABOLIC PANEL (05/20/2025 7:58 PM [facility]) [facility] GLUCOSE 104(H) 70 - 99 MG/DL 05/20/2025 8:26 PM [facility] BUN 19(H) 7 - 18 MG/DL 05/20/2025 8:26 PM [facility] CREATININE S/P/B 1.03 0.7 - 1.3 MG/DL 05/20/2025 8:26 PM [facility] SODIUM S/P/B 139 136 - 145 MMOL/L 05/20/2025 8:26 PM [facility] POTASSIUM S/P/B 4.6 3.5 - 5.1 MMOL/L 05/20/2025 8:26 PM [facility] CHLORIDE S/P/B 101 100 - 108 MMOL/L 05/20/2025 8:26 PM [facility] CO2 28.8 21 - 32 MMOL/L 05/20/2025 8:26 PM [facility] CALCIUM S/P/B 9.1 8.5 - 10.1 MG/DL 05/20/2025 8:26 PM [facility] BILIRUBIN TOTAL S/P/B 0.3 0.2 - 1.2 MG/DL 05/20/2025 8:26 PM [facility] TOTAL PROTEIN S/P/B 7.5 6.4 - 8.2 G/DL 05/20/2025 8:26 PM [facility] ALBUMIN S/P/B 4.3 3.4 - 5.0 G/DL 05/20/2025 8:26 PM [facility] AST 19 15 - 37 U/L 05/20/2025 8:26 PM [facility] ALT 42 16 - 60 U/L 05/20/2025 8:26 PM [facility] ALKALINE PHOSPHATASE S/P/B 70 50 - 136 U/L 05/20/2025 8:26 PM [facility] ANION GAP 9.2 5 - 15 MMOL/L 05/20/2025 8:26 PM [facility] BUN CREATININE RATIO 18.4 6 - 26 05/20/2025 8:26 PM [facility] A/G RATIO 1.3 1.0 - 2.0 RATIO 05/20/2025 8:26 PM [facility] GFR ESTIMATE >90 >90 ML/MIN/1.7 3 M2 05/20/2025 8:26 PM [facility] Comment: NOTE: eGFR is not calculated for patients <18 years of age. This is an estimated GFR calculation using the new CKD EPI creatinine equation without race and so does not require a correction factor for race. This estimated GFR should not be used for calculating drug doses. BLOOD VENOUS BLOOD SPECIMEN / Unknown 05/20/2025 7:58 PM [facility] Lukas Foster DO LABORATORY Final Result [facility] [address] [place] [address], * (ABNORMAL) CBC W/DIFF AUTOMATED (05/20/2025 7:58 PM [facility]) WBC 13.51(H) 4.4 - 11.0 x10'3/uL 05/20/2025 8:27 PM [facility] RBC 5.15 4.50 - 5.90 x10'6/uL 05/20/2025 8:27 PM [facility] HGB 15.8 14.0 - 17.5 G/DL 05/20/2025 8:27 PM [facility] HCT 45.3 41.5 - 50.4 % 05/20/2025 8:27 PM [facility] MCV 88.0 80.0 - 96.0 FL 05/20/2025 8:27 PM [facility] MCH 30.7 26.5 - 31.4 PG 05/20/2025 8:27 PM [facility] MCHC 34.9(H) 31.9 - 34.8 G/DL 05/20/2025 8:27 PM [facility] RDW 12.8 12.3 - 14.3 % 05/20/2025 8:27 PM [facility] PLT 322 151 - 353 x10'3/uL 05/20/2025 8:27 PM [facility] MPV 9.4(L) 9.7 - 11.9 FL 05/20/2025 8:27 PM [facility] SEG NEUTROPHILS 82(H) 42 - 72 % 9:00 PM [facility] LYMPHOCYTES 9(L) 15.8 - 45.0 % 05/20/2025 9:00 PM [facility] MONOCYTES 3(L) 5.7 - 12.5 % 05/20/2025 9:00 PM [facility] ATYP. LYMPHS 2 % 05/20/2025 9:00 PM [facility] IMMATURE GRANS % 4.0 % 05/20/20 9:00 PM [facility] ABS. NEUTROPHILS 11.08(H) 1.40 - 6.00 x10'3/uL 05/20/2025 9:00 PM [facility] ABS. LYMPHOCYTES 1.49 0.80 - 4.70 x10'3/uL 05/20/2025 9:00 PM [facility] PLT MORPH. NORMAL 05/20/2025 9:00 PM [facility] RBC MORPHOLOGY NORMAL 05/20/2025 9:00 PM [facility] WBC MORPHOLOGY NORMAL 05/20/2025 9:00 PM [facility] BLOOD VENOUS BLOOD SPECIMEN / Unknown 05/20/2025 7:58 PM [facility] us Lukas Foster DO LABORATORY Final Result Performing Organization Address City/State/[facility] Co de Phone Number [facility] [address] [place] [address], * ECG 12 lead (05/20/2025 7:55 PM [facility]) ECG QT 326 [facility] ([facility]) RAD ECG QTC 391 [facility] ([facility]) RAD 05/20/2025 7:55 PM [facility] Narrative [facility]) RAD - 05/21/2025 11:51 AM N[facility] Test Date: 2025-05-20 Pat Name: MANUEL WISE Department: 85 Room: Gender: Male It Associate: : 1995 Requested By: LUKAS FOSTER Order Number: [id number] Reading MD: Leti Garcia Measurements Intervals [place] Rate: 86 P: 58 MO: 147 QRS: 50 QRSD: 85 T: 56 QT: 326 QTc: 391 Interpretive Statements SINUS RHYTHM WITH SINUS ARRHYTHMIA Compared to ECG 07/05/2024 17:18:11 No significant changes APATH Procedure Note Leti Garcia MD - 05/21/2025 [facility] Test Date: 2025-05-20 Pat Name: MANUEL WISE Department: 85 Room: Gender: Male It Associate: : 1995 Requested By: LKUAS FOSTER Order Number: [id number] Reading MD: Leti Garcia Measurements Intervals [place] Rate: 86 P: 58 MO: 147 QRS: 50 QRSD: 85 T: 56 QT: 326 QTc: 391 Interpretive Statements SINUS RHYTHM WITH SINUS ARRHYTHMIA Compared to ECG 07/05/2024 17:18:11 No significant changes APATH Lukas Foster DO ECG ORDERABLES Final Result [facility] ([facility]) RAD * XR CHEST PA+LAT (05/13/2025 8:57 PM [facility]) Only the most recent of2 resultswithin the time period is included. Anatomical Region Laterality Modality Chest Radiographic Destiny ging 05/13/2025 9:17 PM [facility] Impressions 05/13/2025 9:41 PM [facility] IMPRESSION: No radiographic evidence of acute chest abnormality. Dictated By: Pankaj Martin MD on 05/13/2025 9:17 PM The attending radiologist has reviewed the image(s) and agrees with the content of this report. Ordered By: LUKAS FOSTER Interpreted By: Pankaj Martin MD, 05/13/2025 9:17 PM Narrative 05/13/2025 9:41 PM [facility] [address] [facility] [place] [address] EXAMINATION: XR CHEST PA+LAT EXAM TIME: 05/13/2025 8:52 PM HISTORY: Shortness of breath. Asthma. Quit smoking April 07. COMPARISON: Chest x-ray 03/06/2025. TECHNIQUE: PA and lateral views of chest. FINDINGS: The heart size is within normal limits. The pulmonary vessels are within normal limits. No parenchymal consolidations. No pleural effusions. No pneumothorax. No acute osseous abnormality is seen. Procedure Note Ernesto Curtis MD - 05/13/2025 [facility] [address] [place] [address] EXAMINATION: XR CHEST PA+LAT EXAM TIME: 05/13/2025 8:52 PM HISTORY: Shortness of breath. Asthma. Quit smoking April 07. COMPARISON: Chest x-ray 03/06/2025. TECHNIQUE: PA and lateral views of chest. FINDINGS: The heart size is within normal limits. The pulmonary vesselsare within normal limits. No parenchymal consolidations. No pleuraleffusions. No pneumothorax. No acute osseous abnormality is seen. IMPRESSION: No radiographic evidence of acute chest abnormality. Dictated By: Pankaj Martin MD on 05/13/2025 9:17 PM The attending radiologist has reviewed the image(s) and agrees with thecontent of this report. Ordered By: LUKAS FOSTER Interpreted By: Pankaj Martin MD, 05/13/2025 9:17 PM Lukas Foster DO GENERAL IMAGING Final Result * CORONAVIRUS (COVID-19) MOLECULAR (05/13/2025 8:17 PM [facility]) CORONAVIRUS SARS COV 2 RNA NEGATIVE NEGATIVE 05/13/2025 8:46 PM [facility] Comment: NEGATIVE RESULTS DO NOT RULE OUT COVID 19 AND SHOULD NOT BE USED THE SOLE BASIS FOR TREATMENT OR PATIENT MANAGEMENT DECISIONS, INCLUDING INFECTION CONTROL DECISIONS. NEGATIVE RESULTS SHOULD BE CONSIDERED IN THE CONTEXT OF A PATIENT'S RECENT EXPOSURES, HISTORY AND THE PRESENCE OF CLINICAL SIGNS AND SYMPTOMS CONSISTENT WITH COVID 19. THE ID NOW COVID-19 2.0 TEST HAS BEEN AUTHORIZED BY THE FDA UNDER EAU FOR USE BY AUTHORIZED LABORATORIES. PERFORMED BY NUCLEIC ACID AMPLIFICATION FOR MOLECULAR QUALITATIVE DETECTION OF SARS-COV-2. SPECIMEN TYPE NASAL 05/13/2025 8:18 PM [facility] NASOPHARYNGEAL SWAB / Unknown 05/13/2025 8:17 PM N[facility]ATH us Luaks Foster DO MICROBIOLOGY - GENERAL ORDERABL ES Final Result Performing Organization Address [facility] Co de Phone Number [facility] [address] [place] [address], [place] [phone] * TSH W/REFLEX (05/13/2025 8:17 PM [facility]) TSH 1.290 0.358 - 3.74 uIU/ML 05/13/2025 8:53 PM [facility] Comment: HIGH DOSES OF BIOTIN MAY INTERFERE WITH THIS TEST RESULT. CORRELATION TO CLINICAL HISTORY AND PRESENTATION RECOMMENDED. FREE T4 NOT INDICATED 05/13/2025 8:17 PM N[facility]ATH us Lukas Foster DO LABORATORY Final Result Performing Organization Address [facility] de Phone Number [facility] [address] [place] [address], [place] [phone] * PRO-BRAIN NATRIURETIC PEPTIDE (05/13/2025 8:17 PM [facility]) PRO-B TYPE NATRIURETIC PEPTIDE 39 <125 PG/ML 05/13/2025 8:53 PM [facility] Comment: CUT POINTS ESTABLISHED BY [employer] ON NT PROBNP (ICON) STUDY (2006). AGE INDEPENDENT: <300 PG/ML HAS A 99% NEGATIVE PREDICTIVE VALUE FOR EXCLUDING ACUTE CHF <50 YEARS: >450 PG/ML IS CONSISTENT WITH ACUTE CHF 50-75 YEARS: >900 PG/ML IS CONSISTENT WITH ACUTE CHF >75 YEARS: >1800 PG/ML IS CONSISTENT WITH ACUTE CHF IN PATIENTS WITH RENAL INSUFFICIENCY (GFR <60), >1200 PG/ML YIELDS A DIAGNOSTIC SENSITIVITY AND SPECIFICITY OF 89% AND 72% FOR ACUTE CHF. 05/13/2025 8:17 PM N[facility]ATH us Lukas Foster DO LABORATORY Final Result Performing Organization Address City/[facility]/ZIP Co de Phone Number [facility] [address] [place] [address], [place] [phone] * INFLUENZA A & B (05/13/2025 8:17 PM N[facility]) SPECIMEN TYPE NASOPHARYNGEAL SWAB 05/13/2025 8:24 PM [facility] INFLUENZA A NEGATIVE NEGATIVE 05/13/2025 8:41 PM N[facility]ATH [facility] INFLUENZA B NEGATIVE NEGATIVE 05/13/2025 8:41 PM N[facility]ATH [facility] NASOPHARYNGEAL SWAB / Unknown 05/13/2025 8:17 PM NAPRAPATH us Lukas Foster DO MICROBIOLOGY - GENERAL ORDERABL ES Final Result Performing Organization Address [facility] Co de Phone Number [facility] [address] [place] [address], [place] [phone] * RESP SYNCYTIAL VIRUS (05/13/2025 8:17 PM N[facility]ATH) SPECIMEN TYPE NASOPHARYNGEAL SWAB 05/13/2025 8:18 PM N[facility]ATH [facility] RAPID RSV NEGATIVE NEGATIVE 05/13/2025 8:41 PM N[facility]RAPATH [facility] NASOPHARYNGEAL SWAB / Unknown 05/13/2025 8:17 PM NAPRAPATH us Lukas Foster DO MICROBIOLOGY - GENERAL ORDERABL ES Final Result Performing Organization Address [facility] Co de Phone Number [facility] [address] [place] [address], [place] [phone] * (ABNORMAL) COMPREHENSIVE METABOLIC PANEL (05/13/2025 8:17 PM N[facility]ATH) GLUCOSE 94 70 - 99 MG/DL 05/13/2025 8:53 PM [facility] BUN 24(H) 7 - 18 MG/DL 05/13/2025 8:53 PM [facility] CREATININE S/P/B 1.17 0.7 - 1.3 MG/DL 05/13/2025 8:53 PM [facility] SODIUM S/P/B 142 136 - 145 MMOL/L 05/13/2025 8:53 PM [facility] POTASSIUM S/P/B 3.7 3.5 - 5.1 MMOL/L 05/13/2025 8:53 PM [facility] CHLORIDE S/P/B 105 100 - 108 MMOL/L 05/13/2025 8:53 PM [facility] CO2 26.9 21 - 32 MMOL/L 05/13/2025 8:53 PM [facility] CALCIUM S/P/B 8.5 8.5 - 10.1 MG/DL 05/13/2025 8:53 PM [facility] BILIRUBIN TOTAL S/P/B 0.3 0.2 - 1.2 MG/DL 05/13/2025 8:53 PM [facility] TOTAL PROTEIN S/P/B 6.9 6.4 - 8.2 G/DL 05/13/2025 8:53 PM [facility] ALBUMIN S/P/B 3.9 3.4 - 5.0 G/DL 05/13/2025 8:53 PM [facility] AST 27 15 - 37 U/L 05/13/2025 8:53 PM [facility] ALT 39 16 - 60 U/L 05/13/2025 8:53 PM [facility] ALKALINE PHOSPHATASE S/P/B 68 50 - 136 U/L 05/13/2025 8:53 PM [facility] ANION GAP 10.1 5 - 15 MMOL/L 05/13/2025 8:53 PM [facility] BUN CREATININE RATIO 20.5 6 - 26 05/13/2025 8:53 PM [facility] A/G RATIO 1.3 1.0 - 2.0 RATIO 05/13/2025 8:53 PM [facility] GFR ESTIMATE 85(L) >90 ML/MIN/1.7 3 M2 05/13/2025 8:53 PM [facility] Comment: NOTE: eGFR is not calculated for patients <18 years of age. This is an estimated GFR calculation using the new CKD EPI creatinine equation without race and so does not require a correction factor for race. This estimated GFR should not be used for calculating drug doses. 05/13/2025 8:17 PM NAPRAPATH us Lukas Foster DO LABORATORY Final Result [facility] [address] [place] [address], * (ABNORMAL) CBC W/DIFF AUTOMATED (05/13/2025 8:17 PM NAPRAPATH) WBC 10.66 4.4 - 11.0 x10'3/uL 05/13/2025 8:26 PM [facility] RBC 4.69 4.50 - 5.90 x10'6/uL 05/13/2025 8:26 PM [facility] HGB 14.4 14.0 - 17.5 G/DL 05/13/2025 8:26 PM [facility] HCT 41.2(L) 41.5 - 50.4 % 05/13/2025 8:26 PM [facility] MCV 87.8 80.0 - 96.0 FL 05/13/2025 8:26 PM [facility] MCH 30.7 26.5 - 31.4 PG 05/13/2025 8:26 PM [facility] MCHC 35.0(H) 31.9 - 34.8 G/DL 05/13/2025 8:26 PM [facility] RDW 13.0 12.3 - 14.3 % 05/13/2025 8:26 PM [facility] PLT 265 151 - 353 x10'3/uL 05/13/2025 8:26 PM [facility] MPV 10.0 9.7 - 11.9 FL 05/13/2025 8:26 PM [facility] RBC MORPHOLOGY NORMAL 05/13/2025 8:26 PM [facility] PLT MORPH. NORMAL 05/13/2025 8:26 PM [facility] WBC MORPHOLOGY NORMAL 05/13/2025 8:26 PM [facility] LYMPHOCYTES % 25.9 15.8 - 45.0 % 05/13/2025 8:26 PM [facility] NEUTROPHILS % 53.6 42.1 - 71.9 % 05/13/2025 8:26 PM [facility] MONOCYTES % 8.3 5.7 - 12.5 % 05/13/2025 8:26 PM [facility] EOSINOPHILS 10.2(H) 0.0 - 5.6 % 05/13/2025 8:26 PM [facility] BASOPHILS 1.1 0.0 - 1.3 % 05/13/2025 8:26 PM [facility] ABS. NEUTROPHILS 5.70 1.40 - 6.00 x10'3/uL 05/13/2025 8:26 PM [facility] [facility] IMMATURE GRANS % 0.9(H) 0.0 - 0.5 % 05/13/2025 8:26 PM [facility] ABS. LYMPHOCYTES 2.76 0.80 - 4.70 x10'3/uL 05/13/2025 8:26 PM [facility] 05/13/2025 8:17 PM [facility] Lukas Foster LABORATORY Final Result Performing Organization Address [facility] Co de Phone Number [facility] [address] [place] [address], [place] [phone] * TROPONIN, QUANT (05/13/2025 8:17 PM [facility]) TROPONIN I HIGH SENSITIVITY 5 0 - 75 ng/L 05/13/2025 8:41 PM [facility] Comment: HIGH DOSES OF BIOTIN, TROPONIN-SPECIFIC AUTOANTIBODIES, AND ANTIBODY THERAPY CONTAINING HAMA MAY INTERFERE WITH THIS TEST RESULT. CORRELATION TO CLINICAL HISTORY AND PRESENTATION RECOMMENDED. 05/13/2025 8:17 PM [facility] Lukas Foster DO LABORATORY Final Result Performing Organization Address [facility] Co de Phone Number [facility] [address] [place] [address], [place] [phone] from Last 3 [place] [address] [employer] Care Teams Cable Worker Helper Relationship Specialty Start Date End Date Nalini Cardoso PA-C PCP - General PHYSICIAN [employer]GER [employer] 05/17/23
--- NOTE | 2025-06-06 17:02 | ED.GENADULT ---
HPI - General Adult General Chief complaint: Unspecified Stated complaint: spitting up blood Time Seen by Provider: 06/06/25 16:32 Mode of arrival: EMS History of Present Illness HPI narrative: Patient is a 30-year-old male who presents to the with a 1 week history of hemoptysis. He reports he stopped smoking cigarettes 61 days ago. Patient reports he has been smoking for approximately 20 years prior to cessation. He reports he started noticing dark red blood when he woke up at night and coughed. Patient reports he has noticed the hemoptysis more during the day now and it is ?bright red blood. He denies any heavy coughing, difficulty breathing, increased wheezing, recent fevers, sore throat. Patient endorses increased nausea, but no vomiting. He endorses a history of a hiatal hernia and asthma. Patient is concerned his symptoms are related to his hiatal hernia. Related Data Home Medications ?Medication ?Instructions ?Recorded ?Confirmed ?Last Taken ?Type pantoprazole 40 mg tablet,delayed mg PO 09/01/24 Unknown History release hydrocodone 7.5 mg-acetaminophen tablet 05/17/25 Unknown History 325 mg tablet meloxicam 15 mg tablet mg 05/17/25 Unknown History methylprednisolone 4 mg tablets in mg 05/17/25 Unknown History a dose pack Allergies Allergy/AdvReac Type Severity Reaction Status Date / Time No Known Allergies Allergy Verified 06/06/25 16:13 Review of Systems Review of Systems: All systems reviewed & are unremarkable except as noted in HPI and below PMFSH Past Medical History Medical History GERD (gastroesophageal reflux disease) Portal vein thrombosis Back pain Esophageal ulcer Asthma Surgical History Surgical History No history of previous surgery Social History Social History Smoking packs per day: 0.5 Smoking cigarettes per day: 10.0 Smoking status: Current every day smoker Alcohol intake: unknown Substance use: unknown Living arrangements: with family Gender identity (if verbalized by the patient): Male Exam Narrative: GENERAL: Well appearing, well-nourished, non-toxic, in no acute distress. HEAD: Normocephalic, atraumatic. NECK: Supple. No adenopathy, no masses. RESPIRATORY: Airway patent, respirations nonlabored. Clear to auscultation bilaterally, no rales, rhonchi, wheezing. CARDIOVASCULAR: Regular rate and rhythm without murmurs, rubs, or gallops. Peripheral pulses 2+ and equal bilaterally. ABDOMINAL: Soft, nontender, nondistended, no hepatosplenomegaly. Normoactive BS. MUSCULOSKELETAL: Moves all extremities. Strength/ROM intact without gross deformities. SKIN: Warm, dry, normal color. No rashes. NEURO: A&O X3. Speech clear. Cranial nerves II-XII intact. No ataxic movements. PSYCHIATRIC: Appropriate mood and affect. Normal interaction. Course Vital Signs Vital signs: Vital Signs Temperature 36.4 C 06/06/25 16:15 Pulse Rate 73 06/06/25 16:15 Respiratory Rate 18 06/06/25 16:15 Blood Pressure 149/78 H 06/06/25 16:15 Pulse Oximetry 98 06/06/25 16:15 Temperature 36.4 C 06/06/25 16:15 Pulse Rate 73 06/06/25 16:15 Respiratory Rate 20 06/06/25 16:25 Blood Pressure 149/78 H 06/06/25 16:15 Pulse Oximetry 98 06/06/25 16:15 Medical Decision Making [facility] Narrative Medical decision making narrative: Patient is a 30-year-old male who presents to the with a 1 week history of hemoptysis. He reports he stopped smoking cigarettes 61 days ago. Patient reports he has been smoking for approximately 20 years prior to cessation. He reports he started noticing dark red blood when he woke up at night and coughed. Patient reports he has noticed the hemoptysis more during the day now and it is ?bright red blood. He denies any heavy coughing, difficulty breathing, increased wheezing, recent fevers, sore throat. Patient endorses increased nausea, but no vomiting. He endorses a history of a hiatal hernia and asthma. Patient is concerned his symptoms are related to his hiatal hernia. Labs Ordered: CBC, CMP, magnesium, PTT, INR, D-dimer, lactic acid Imaging Ordered: Chest x-ray, CT diagnostic chest Medications Ordered: None necessary Results: Patient's CT scan results indicate No significant coronary calcification is present ([id number]) LUNGS: Clear without consolidation, effusion, or pneumothorax. HEART AND PERICARDIUM: Within normal limits. AORTA: Normal caliber aorta. ADENOPATHY/MEDIASTINUM: None. LIMITED VIEWS OF THE ABDOMEN: Thickening of the esophagus may represent mild esophagitis. Small hiatal hernia noted. OSSEOUS STRUCTURES: No acute osseous abnormality.No suspicious lesions. OVERLYING SOFT TISSUES: Unremarkable. THYROID: The thyroid is unremarkable. Diagnosis: Hemoptysis, esophagitis Risks: HEART score: low risk HEART Score for Major Cardiac Events from [facility] on 06/06/2025 All calculations should be rechecked by clinician prior to use RESULT SUMMARY: 2 points Low Score (0-3 points) Risk of MACE of 0.9-1.7%. INPUTS: History ?> 1 = Moderately suspicious EKG ?> 0 = Normal Age ?> 0 = <45 Risk factors ?> 1 = 1-2 risk factors Initial troponin ?> 0 = <Normal limit Patient Education/Shared MDM: Results of lab work and imaging shared with patient. He endorses improvement of anxiety symptoms knowing there is nothing wrong. It was explained to pt that he may have some irritation in the back of his throat d/t GERD, which is causing some blood to come up in his mucus. Patient strongly advised to maintain hydration status upon discharge and follow-up with his PCP as soon as possible for further evaluation. He was advised to start taking Pepcid twice a day in addition to his daily Prilosec. He will not be discharged home with any new prescriptions. Strict return precautions provided. Patient verbalized understanding and is in agreement with plan. Vital signs stable at time of discharge. All questions answered. Differential Diagnosis Differential Diagnosis: GERD, pneumonia, bronchitis, PE, sepsis Vital Signs Vital Signs: Vital Signs Temperature 36.4 C 06/06/25 16:15 Pulse Rate 73 06/06/25 16:15 Respiratory Rate 18 06/06/25 16:15 Blood Pressure 149/78 H 06/06/25 16:15 Pulse Oximetry 98 06/06/25 16:15 Temperature 36.4 C 06/06/25 16:15 Pulse Rate 73 06/06/25 16:15 Respiratory Rate 20 06/06/25 16:25 Blood Pressure 149/78 H 06/06/25 16:15 Pulse Oximetry 98 06/06/25 16:15 Lab Data Lab results reviewed: Yes I reviewed the patient's lab results. 06/06/25 17:44 06/06/25 17:44 Labs: Lab Results 06/06/25 Range/Units 17:44 WBC 8.4 (4.5-10.0) K/mm3 RBC 5.06 (4.6-6.20) M/mm3 Hgb 15.4 (14.0-18.0) g/dL Hct 44.3 (42.0-52.0) % MCV 87.5 (80-100) fl MCH 30.4 (26-34) pg MCHC 34.8 (32-36) g/dl RDW 12.2 (11.5-14.5) % Plt Count 258 (150-375) k/mm3 MPV 9.5 (7.4-10.4) fl Immature Gran % (Auto) 1.0 H (0-0.5) % Neut % (Auto) 50.7 (45.5-73.1) % Lymph % (Auto) 29.6 (18.3-44.2) % [place] % (Auto) 8.2 (2.6-8.5) % Eos % (Auto) 9.7 H (0-4.4) % Baso % (Auto) 0.8 (0.2-1.2) % Lymph # (Auto) 2.48 (0.9-3.2) K/mm3 [place] # (Auto) 0.7 H (0.1-0.6) K/mm3 Eos # (Auto) 0.8 H (0-0.3) K/mm3 Baso # (Auto) 0.1 (0.0-0.1) K/mm3 Abs Immat Gran (auto) 0.08 H (0.00-0.031) K/mm3 Absolute Neuts (auto) 4.2 (1.3-6.7) K/mm3 Absolute Nucleated RBC 0.000 (0.0-0.012) K/mm3 Nucleated RBC % 0.0 (0.0-0.2) % PT 12.2 (11.1-14.7) Seconds INR 0.9 APTT 25.4 (22.3-36.8) Seconds D-Dimer < 0.27 (<0.48) ug/mL Sodium 135 L (137-145) mmol/L Potassium 4.3 (3.4-5.0) mmol/L Chloride 104 (98-107) mmol/L Carbon Dioxide 27 (22-30) mmol/L Anion Gap 4 (4-12) mmol/L BUN 20 (9-20) mg/dL Creatinine 0.87 (0.7-1.3) mg/dL Estim Creat Clear Calc 117 ml/min Estimated GFR > 60 (59 - ) Glucose 90 (65-110) mg/dL Lactic Acid 0.6 L (0.7-2.0) mmol/L Calcium 9.0 (8.4-10.2) mg/dL Magnesium 1.9 (1.6-2.3) mg/dL Total Bilirubin 0.4 (0.2-1.3) mg/dL AST 28 (17-59) U/L ALT 31 (6-50) U/L Alkaline Phosphatase 64 (38-126) U/L Total Protein 6.7 (6.3-8.2) g/dL Albumin 4.2 (3.5-5.1) g/dL Imaging Data Attestation: I personally reviewed and interpreted this imaging study as follows: Radiologist's impression: Impressions Chest X-Ray 06/06/25 17:28 Impression: No acute cardiopulmonary abnormality. Chest CT 06/06/25 18:49 IMPRESSION: 1. No etiology identified to explain the patient's symptoms. Follow up suggested if symptoms persist. Discharge Plan Discharge Clinical Impression: Esophagitis, GERD with esophagitis Patient Disposition: Home Condition: Stable Instructions: Antibiotic Form, GERD (Gastroesophageal Reflux Disease) (ED) Additional Instructions: Please return to the ER with any worsening symptoms. Follow-up with primary care provider as soon as possible for further evaluation. Take all medications as prescribed, including regularly scheduled medications. You may take Pepcid twice a day to help relieve your symptoms, along with your daily Prilosec. Patient Language: Yoruba Prescriptions: No Action pantoprazole 40 mg tablet,delayed release (DR/EC) PO meloxicam 15 mg tablet hydrocodone-acetaminophen 7.5-325 mg tablet methylprednisolone 4 mg tablets,dose pack Follow-up/Referrals: Walker,AMERICA Gayle [Primary Care Provider, Unknown] Time of Disposition: 19:26
[2025-06-06 17:52] LABS: Hematocrit 44.3 % (42.0-52.0); Hemoglobin 15.4 g/dL (14.0-18.0); Immature Granulocyte Percent A 1.0 % (0-0.5); Lymphocytes Absolute Auto 2.48 K/mm3 (0.9-3.2); Mean Corpuscular HGB Conc 34.8 g/dl (32-36); Mean Corpuscular Hemoglobin 30.4 pg (26-34); Mean Corpuscular Volume 87.5 fl (80-100); Nucleated Red Blood Cells Absolute Auto 0.000 K/mm3 (0.0-0.012); Nucleated Red Blood Cells Perc 0.0 % (0.0-0.2); Platelet Count Result 258 k/mm3 (150-375); Red Blood Count 5.06 M/mm3 (4.6-6.20); White Blood Count 8.4 K/mm3 (4.5-10.0)
[2025-06-06 18:03] LABS: INR 0.9; Prothrombin Time 12.2 Seconds (11.1-14.7)
[2025-06-06 18:04] LABS: Partial Thromboplastin Time 25.4 Seconds (22.3-36.8)
[2025-06-06 18:10] LABS: Alanine Aminotransferase 31 U/L (6-50); Albumin Level 4.2 g/dL (3.5-5.1); Alkaline Phosphatase 64 U/L (38-126); Anion Gap 4 mmol/L (4-12); Aspartate Amino Transferase 28 U/L (17-59); Bilirubin,Total 0.4 mg/dL (0.2-1.3); Blood Urea Nitrogen 20 mg/dL (9-20); Calcium 9.0 mg/dL (8.4-10.2); Carbon Dioxide 27 mmol/L (22-30); Chloride 104 mmol/L (98-107); Estimated CRCL calculation 117 ml/min; Estimated Glomerular Filt Rate > 60; Glucose 90 mg/dL (65-110); Magnesium 1.9 mg/dL (1.6-2.3); Potassium 4.3 mmol/L (3.4-5.0); Sodium 135 mmol/L (137-145); Total Protein 6.7 g/dL (6.3-8.2)
[2025-06-06 19:39] VITALS: BP 132/70; PULSE 88; RESP 18; O2SAT 94
== END 2025-06-06 19:42 | disposition home or self-care (01) ==
PROVIDERS: Emergency Provider Registered Nurse; PCP Physician Assistant
DX: K21.00 Gastro-esophageal reflux disease with esophagitis, without bleeding (principal); J45.909 Unspecified asthma, uncomplicated; K44.9 Diaphragmatic hernia without obstruction or gangrene; Z87.891 Personal history of nicotine dependence
CPT/HCPCS: 36415; 71046; 71260; 80053; 83605; 83735; 85025; 85380; 85610; 85730; 99284; Q9967